=== PATIENT | female | born 1945 | race Caucasian/White ===

== ENCOUNTER 2022-07-07 09:49 | Outpatient (REF) | payer MEDICARE, MEDICAID, SELFPAY | END 2022-07-07 09:50 | disposition home or self-care (01) | LOC: HO.SH 09:49 | PROVIDERS: Visit Provider Internal Medicine | DX: Z01.118 Encounter for examination of ears and hearing with other abnormal findings (principal); H90.A32 Mixed conductive and sensorineural hearing loss, unilateral, left ear with restricted hearing on the contralateral side | CPT/HCPCS: 92557; 92567 ==

== ENCOUNTER 2022-09-06 00:13 | Emergency (ER) | payer MEDICARE, MEDICAID, SELFPAY ==
--- NOTE | ~2022-09-06 | CT_ITS ---
EXAMINATION: CT ABDOMEN AND PELVIS WITHOUT CONTRAST CLINICAL INFORMATION: Nonspecific abdominal pain and generalized weakness. COMPARISON: None TECHNIQUE: Multidetector volumetric imaging was performed from the superior aspect of the liver through the pubic symphysis. Sagittal and coronal reformatted images were obtained on the technologist's workstation. This CT examination was performed using dose optimization techniques as appropriate, variously including the following: *Automated exposure control *Adjustment of mA and/or kV according to patient size (this includes techniques or standardized protocols for targeted exams where dose is matched to indication/reason for exam; i.e. extremities or head) *Use of iterative reconstruction technique DLP: 1346 mGy-cm FINDINGS: LUNG BASES: Partial visualization is made of left base pleural thickening and pleural calcifications. Partial visualization is made of at least mild coronary artery calcific atherosclerosis. LIVER, GALLBLADDER, AND BILIARY TREE: Diffuse low density of the liver is present and is suspicious for diffuse hepatic steatosis. Cholecystectomy clips are noted. PANCREAS: Unremarkable. SPLEEN: Unremarkable. ADRENAL GLANDS: Unremarkable. KIDNEYS AND URETERS: A 3.5 cm diameter low density (-15 Hounsfield units) benign-appearing simple cyst is noted in association with the inferior pole of the left kidney and requires no additional imaging follow-up. No urolithiasis. No hydronephrosis. No perinephric inflammatory changes. BLADDER: Partially decompressed. GASTROINTESTINAL TRACT: Moderate quantity of stool within the descending colon. No intestinal dilatation or mural thickening. The appendix is not visualized. Normal appearance of the terminal ileum. No pericecal inflammatory changes. No free intraperitoneal fluid or gas collections. No inflammatory changes of the sigmoid mesentery or small bowel mesentery. Normal appearance of the stomach. ABDOMINAL WALL: No significant hernia is appreciated. LYMPH NODES: Normal. VASCULAR: Moderate diffuse calcific atherosclerosis. PELVIC VISCERA: Uterus is not visualized. No adnexal lesions. OSSEOUS STRUCTURES: Advanced multilevel chronic spondylosis of the lumbar spine. No vertebral body compression deformities. Partial visualization of convex rightward thoracolumbar scoliosis. CT/CT abdomen pelvis wo IV con IMPRESSION: Unenhanced CT of the abdomen pelvis: *No acute abnormalities identified. *Partial visualization of chronic left pleural scarring and calcifications. Findings may represent the sequela of remote trauma or infection. *Moderate quantity of stool within the descending colon. No evidence of obstruction or obstipation. *Diffuse hepatic steatosis. *Status post cholecystectomy. *The appendix is not visualized. No pericecal inflammatory changes. *No urolithiasis. No hydronephrosis. *Advanced multilevel chronic spondylosis of the lumbar spine.
--- NOTE | ~2022-09-06 | XR_ITS ---
EXAMINATION: XR CHEST CLINICAL INFORMATION: Weakness. COMPARISON: Chest radiograph 06/23/2016. TECHNIQUE: Frontal view of the chest was obtained. FINDINGS: Normal appearance of the cardiomediastinal structures. Mild blunting of left costophrenic sulcus. No pneumothoraces. No focal pulmonary consolidation identified. Partially visualized prominent arthropathic changes of the left shoulder. XR/XR chest 1V IMPRESSION: *Blunting of left costophrenic sulcus suspicious for a small left pleural effusion and/or pleural thickening. *No focal pulmonary consolidation.
[2022-09-06 00:16] VITALS: BP 121/51; PULSE 96; O2SAT 94
--- NOTE | 2022-09-06 00:39 | ECG_ITS ---
Test Reason : weakness Blood Pressure : / mmHG Vent. Rate : 087 BPM Atrial Rate : 087 BPM P-R Int : 152 ms QRS Dur : 102 ms QT Int : 400 ms P-R-T Axes : 060 050 066 degrees QTc Int : 481 ms Normal sinus rhythm Biatrial enlargement Incomplete right bundle branch block Abnormal ECG When compared with ECG of 23-JUN-2016 16:46, No significant change was found Referred By: Brandon Bragg Electronically Signed By:KARLA BERUMEN MD
--- NOTE | 2022-09-06 00:47 | ED_ITS ---
HPI - General Adult General Chief complaint: Extremity Problem Stated complaint: Lefty side Weakness Time Seen by Provider: 09/06/22 00:33 Source: patient and EMS Mode of arrival: EMS Limitations: no limitations History of Present Illness HPI narrative: 76-year-old female came in from long term for evaluation of generalized weakness, coughing with clear sputum, subjective fever, no sick contact at the long term that the patient know off, patient also has been complaining of abdominal pain. No localized weakness or neuro deficit Related Data Previous Rx's Medication Instructions Recorded oseltamivir 75 mg capsule (Tamiflu) 75 mg PO BID 5 days #10 caps 09/06/22 Allergies Allergy/AdvReac Type Severity Reaction Status Date / Time azithromycin [AZITHROMYCIN] Allergy Unknown ITCHY Unverified 06/18/20 14:37 codeine [CODEINE] AdvReac Unknown NAUSEA Unverified 06/18/20 14:37 codeine Allergy Unknown facial Uncoded 02/23/17 00:00 flushing/vomiting Review of Systems Review of Systems: All other systems are reviewed and are negative Constitutional: Reports as per HPI and Reports no additional constitutional complaints Eyes: Reports as per HPI and Reports no additional eye complaints Reports system reviewed and no additional complaints, except as documented Cardiovascular: Reports as per HPI and Reports no additional cardiovascular complaints Respiratory: Reports as per HPI and Reports no additional respiratory complaints Gastrointestinal: Reports as per HPI and Reports no additional gastrointestinal complaints Genitourinary: Reports no additional female genitourinary complaints Musculoskeletal: Reports no additional musculoskeletal complaints Skin/Breast: Reports system reviewed and no additional complaints, except as docu Psychiatric: Reports no additional psychiatric complaints Endocrine: Reports no additional endocrine complaints Hematologic/Lymphatic: Reports no additional hematologic/lymphatic complaints Allergic/Immunologic: Reports no additional allergic/immunologic complaints Reports system reviewed and no additional complaints, except as documented and Reports Abnormal speech present [facility] Social History Social History Alcohol intake: never Smoked in Last 30 Days: No Use of substances other than those prescribed or required for medical reasons: No Advance Directives: No Advance Directives Information Provided: No Physical Exam ED Vital Signs: Vital Signs - 24 hr 09/06/22 01:46 Temperature 97.6 F Pulse Rate 84 Respiratory Rate 20 Blood Pressure 134/57 L Pulse Oximetry 92 Oxygen Delivery Method Room Air BMI result Body Mass Index 67.3 Vital signs have been reviewed as appeared to be correct. Blood pressure normal. Heart rate normal. Respiration rate normal. Temperature normal. Oxygen saturation normal. Appearance: Alert. Oriented X3. No acute distress. Head: Normal external exam. Normocephalic. Atraumatic. No Rosado signs noted. No raccoon eyes noted Eyes: PERRLA. EOMI. Conjunctiva and sclera normal. Eyelids normal. ENT: TM's Normal. Pharynx normal. Uvula midline. Moist mucous membranes. No trismus noted. No drooling noted. No muffled voice noted. Neck: Normal inspection. Neck supple. FROM. No adenopathy. Thyroid Normal. No meningeal signs. No neck mass noted. CVS: Normal heart rate and rhythm. Heart sound normal. No murmurs noted. Pulses normal throughout. Respiratory: No respiratory distress. Painless inspiration. Breath sounds normal. No wheezes/rales/rhonchi noted. Chest nontender. No accessory muscle usage noted or decreased air movement noted. Abdomen: Obese, soft, mild diffuse tenderness, no rebound tenderness, no guarding.. Bowel sounds normal in all 4 quadrants. No distention noted. No organomegaly noted. No visible injury noted. Back: No CVA tenderness. Full range of motion noted. Skin: Skin warm and dry. Normal skin color. Normal skin turgor. No rashes/lesions/lacerations noted. Extremities: No lower extremity edema. Extremities exhibit normal range of motion. Extremities nontender. Neuro: Oriented X 3. Cranial nerve exam: II-XII are grossly intact No motor deficit. No sensory deficit. Reflexes normal. Course Course Course Narrative: 76-year-old female presented with symptoms of generalized weakness patient tested positive for flu will start the patient on Tamiflu. Abdominal pain with negative CT abdomen and pelvis. Otherwise unremarkable labs. Medical Decision Making Medical Decision Making Differential Diagnoses: Differential diagnosis Differential Diagnosis: The differential diagnosis associated with the patient?s presentation includes: Influenza/abdominal pain/diverticulitis/UTI/generalized weakness due to on specified reason. Discharge Plan Discharge Clinical Impression: Influenza A Patient Disposition: Home, Self-Care Instructions: Influenza (ED) Prescriptions: New oseltamivir [Tamiflu] 75 mg capsule 75 mg PO BID 5 Days Qty: 10 0RF Referrals: Physician,Unknown J [Primary Care Provider] -
[2022-09-06 01:00] VITALS: BMI 67.3
--- NOTE | 2022-09-06 01:12 | PC.NURSE ---
Patient is alert and oriented. Patient c/o generalized weakness. Patient has L sided weakness due to CVA.
--- NOTE | 2022-09-06 01:30 | PC.NURSE ---
Obtained IV access R forearm 22g.
[2022-09-06 01:31] LABS: MANUAL DIFF FLAG NO
[2022-09-06 01:46] VITALS: BP 134/57; PULSE 84; RESP 20; TEMP 36.4; O2SAT 92
[2022-09-06 01:46] LABS: Basophils Percent Auto 0.3 % (0-2); Eosinophils Absolute Auto 0.1 X10*3/uL (0.0-0.4); Eosinophils Percent Auto 1.1 % (0-4); Hematocrit 43.9 % (37.0-47.0); Imm Gran Abs Auto 0.03 X10*3/uL (0.00-0.03); Imm Gran Pct Auto 0.5 % (0.0-0.4); Lymphocytes Absolute Auto 0.9 X10*3/uL (1.2-4.9); Lymphocytes Percent Auto 13.1 % (20-40); Mean Corpuscular HGB Conc 31.9 g/dl (31.0-35.0); Mean Corpuscular Hemoglobin 27.5 pg (27.0-33.0); Mean Corpuscular Volume 86.2 fL (80.0-98.0); Mean Platelet Volume 10.6 fL (9.4-12.3); Monocytes Absolute Auto 1.2 X10*3/uL (0.1-1.2); Monocytes Percent Auto 17.4 % (2-11); Neutrophils Absolute Auto 4.5 x10*3/uL (2.0-8.3); Neutrophils Percent Auto 67.6 % (45-73); Platelet Count 223 X10*3/uL (160-400); Red Blood Count 5.09 X10*6/uL (4.20-5.50); Red Cell Distribution Width 14.5 % (11.0-16.0); White Blood Count 6.7 X10*3/uL (4.8-10.8)
[2022-09-06 01:52] LABS: Alanine Aminotransferase 43 U/L (0-31); Albumin Level 3.9 g/dL (3.5-5.0); Alkaline Phosphatase 96 U/L (39-117); Anion Gap 17 (12-20); Aspartate Amino Transferase 53 U/L (5-31); Bilirubin Direct < 0.2 mg/dL (0.0-0.5); Blood Urea Nitrogen 26 mg/dL (9-16); Calcium 8.8 mg/dL (8.4-10.2); Carbon Dioxide 22 mmol/L (22-29); Chloride 102 mmol/L (96-108); Creatinine Clr Calc Pharmacy 46.6; Estimated Glomerular Filt Rate 31; Glucose Random 184 mg/dL (60-115); Lipase 19 U/L (8-78); Potassium 4.1 mmol/L (3.3-5.1); Sodium 137 mmol/L (135-145); Total Protein 6.7 g/dL (6.5-8.0)
[2022-09-06 01:56] LABS: B Type Natriuretic Peptide 12 pg/mL (<100)
[2022-09-06 01:57] LABS: Troponin-I High Sensitivity 5.2 ng/L (<3.5-17.0)
[2022-09-06 01:59] LABS: Appearance Urine Clear; Color Urine Yellow; Glucose Urine UA Negative (Negative); Leukocyte Esterase Urine Negative (Negative); Nitrite Urine Negative (Negative); PH 5.5 (5.0-9.0); Urine Blood Negative (Negative); Urine Ketones Trace mg/dL (Negative); Urine Protein Negative (Neg-Trace)
[2022-09-06 02:09] LABS: Bilirubin Total 0.3 mg/dL (0.0-1.0)
[2022-09-06 02:23] LABS: Influenza A PCR POSITIVE (Negative); Influenza B PCR NEGATIVE (Negative); Resp Syncy Virus RNA Qual PCR NEGATIVE (Negative); SARS COV2 PCR INHOUSE NEGATIVE (Negative)
--- NOTE | 2022-09-06 03:00 | PC.NURSE ---
Patient straight cathed. Patient tolerated procedure well. 200 mL output with straight cath.
[2022-09-06] MEDS: Oseltamivir Phosphate 75 MG CAPSULE PO (03:32)
--- NOTE | 2022-09-06 03:32 | PC.NURSE ---
Administered tamiflu per NOV.
--- NOTE | 2022-09-06 03:36 | PC.NURSE ---
Applied purewick. Patient is not able to ambulate to the restroom nor use a commode safely and independently.
--- NOTE | 2022-09-06 04:00 | PC.NURSE ---
Patient is sleeping. No apparent distress.
[2022-09-06 06:13] VITALS: BP 198/90; PULSE 88; RESP 18; TEMP 36.4; O2SAT 95
--- NOTE | 2022-09-06 06:34 | PC.NURSE ---
Called Aga Wilson, coordinator from [facility]. Informed her that patient is ready for discharge, updated preferred pharmacy, and [facility] stated that an ambulance would have to transport patient back to [facility]. She also asked to be informed as to the ETA once ambulance arrives to transport patient back to [facility]. (Aga Wilson [phone])
--- NOTE | 2022-09-06 07:19 | PC.NURSE ---
ambulance transfer being set up
[2022-09-06 08:05] VITALS: BP 152/77; PULSE 92; RESP 20; O2SAT 94
[2022-09-06 10:05] VITALS: BP 156/72; PULSE 94; RESP 16; TEMP 36.9; O2SAT 92
== END 2022-09-06 10:02 | disposition home or self-care (01) ==
PROVIDERS: Emergency Provider Emergency Medicine
DX: J10.1 Influenza due to other identified influenza virus with other respiratory manifestations (principal); R06.02 Shortness of breath; R53.1 Weakness; R05.9 Cough, unspecified; Z20.822 Contact with and (suspected) exposure to COVID-19; Z79.899 Other long term (current) drug therapy
CPT/HCPCS: 0241U; 71045; 74176; 80048; 80076; 81003; 83690; 83880; 84484; 85025; 93005; 99284; 99285

== ENCOUNTER 2024-01-27 15:06 | Emergency (ER) | payer MEDICARE, MEDICAID, SELFPAY ==
--- NOTE | ~2024-01-27 | XR_ITS ---
EXAMINATION: XR CHEST CLINICAL INFORMATION: ?aspiration COMPARISON: Chest radiograph 09/06/2022, CT abdomen/pelvis 09/06/2022 TECHNIQUE: Frontal view of the chest was obtained. FINDINGS: The lungs are adequately expanded. Left inferolateral pleural thickening redemonstrated. No dense focal consolidation, significant perfusion, pulmonary edema or pneumothorax. Cardiomediastinal silhouette is within normal limits for technique and unchanged. No acute osseous abnormality. Severe left glenohumeral arthrosis. XR/XR chest 1V IMPRESSION: 1. No acute pulmonary disease. 2. Left inferolateral pleural thickening redemonstrated.
[2024-01-27 15:15] VITALS: BP 194/56; PULSE 80; RESP 18; TEMP 36.5; O2SAT 94; O2SAT 99; BMI 45.6
--- NOTE | 2024-01-27 17:06 | ED_ITS ---
HPI - General Adult General Chief complaint: General Medical Stated complaint: CHOKED ON MEATBALL Time Seen by Provider: 01/27/24 16:14 Source: patient, RN notes reviewed and old records reviewed Mode of arrival: EMS Limitations: no limitations History of Present Illness HPI narrative: 78-year-old female presents for evaluation of ?choked on a meatball. ? Patient reports that she was eating lunch prior to coming in. She states that she bit off a large piece of meat ball. She states it got stuck correction down Patient reports that she could not swallow and ?I kept coughing up phlegm. ? She reports that she was able to talk during this This is not the 1st time this has happened She reports having had a swallow evaluation but not an endoscopy She was able to cough out the entire meet ball per her report Currently she has no complaints or concerns Related Data Previous Rx's ?Medication ?Instructions ?Recorded oseltamivir 75 mg capsule (Tamiflu) 75 mg PO BID 5 days #10 caps 09/06/22 amoxicillin 875 mg-potassium 1 tab PO Q12H #10 tabs 01/27/24 clavulanate 125 mg tablet Allergies Allergy/AdvReac Type Severity Reaction Status Date / Time azithromycin [AZITHROMYCIN] Allergy Unknown ITCHY Verified 01/27/24 15:17 codeine [CODEINE] AdvReac Unknown NAUSEA Verified 01/27/24 15:17 codeine Allergy Unknown facial Uncoded 02/23/17 00:00 flushing/vomiting Review of Systems Constitutional: Constitutional: Denies body ache(s), Denies chills and Denies fever(s) ENT: Denies sore throat Cardiovascular: Cardiovascular: Denies chest pain and Denies dyspnea Respiratory: Respiratory: Reports cough and Denies dyspnea Gastrointestinal: Gastrointestinal: Denies abdominal pain, Denies nausea and Denies vomiting Musculoskeletal: Musculoskeletal: Denies back pain Integumentary/Breasts: Skin/Breast: Denies rash PMFSH Social History Social History Alcohol intake: never Physical Exam ED Vital Signs: Vital Signs - 24 hr 01/27/24 15:15 Temperature 97.7 F Pulse Rate 80 Respiratory Rate 18 Blood Pressure 194/56 H Pulse Oximetry 94 Oxygen Delivery Method Room Air BMI result Body Mass Index 45.6 Const General: healthy appearing, comfortable, no acute distress, alert and awake Nutritional Appearance: well nourished Orientation/consciousness: patient oriented x3 HENWI Head: Yes normocephalic and Yes atraumatic Throat: Yes posterior oropharynx normal Eyes Eyelids: Yes eyelids normal Conjunctivae: conjunctivae normal Sclerae: sclerae normal Corneas: corneas normal Pupils: Equal, round and reactive pupils present EOM: EOMs intact bilaterally Neck Neck: Yes full ROM Resp Effort & Inspection: normal respiratory effort, able to speak in complete sentences, no audible wheezes and not labored Auscultation: clear to auscultation bilaterally Cardio Rate: regular rate Rhythm: regular rhythm GI Inspection: No distended Palpation (GI): Soft to palpation, not firm, nontender, no guarding and not rigid Skin General skin exam: no rashes or lesions noted and elasticity normal Neuro Other: Left-sided hemiparesis General: patient oriented x3 Cranial nerves: Yes CN's II-XII intact bilaterally, Yes Equal, round and reactive pupils present and Yes Bilaterally intact EOM present Cognition (Neuro): normal cognition Medical Decision Making Medical Decision Making MDM Narrative: Patient is currently asymptomatic with stable vital signs. She has not in respiratory distress, she has no complaints of chest pain, cough, shortness of breath. It sounds as if she was able to cough the foreign body up. Based on her history and that she is able to speak during this episode was likely lodged in her esophagus rather than her trachea. However given her age and comorbidities we will cover with 5 days of Augmentin to prevent aspiration pneumonia. She will be referred to GI Differential Diagnosis Differential Diagnoses: The differential diagnosis associated with the presentation includes Choking episode Esophageal foreign body Aspiration pneumonia Upper respiratory infection Discharge Plan Discharge Clinical Impression: Choking episode Patient Disposition: Home, Self-Care Instructions: Esophageal Foreign Body (ED) Additional Instructions: Based on your history, it sounds as if there was something stuck in your esophagus rather than your trachea. I recommend that you stick to liquids and soft foods Follow-up with GI, Dr. Alarcon at the number provided You would likely benefit from an upper endoscopy Take Augmentin twice daily for 5 days to prevent aspiration pneumonia Follow-up with your primary doctor return for new or worsening symptoms Prescriptions: New amoxicillin-pot clavulanate 875-125 mg tablet 1 tab PO Q12H Qty: 10 0RF No Action oseltamivir [Tamiflu] 75 mg capsule 75 mg PO BID 5 Days Qty: 10 0RF Referrals: Jorge Alarcon MD [Physician] - (frequent food stuck in esophagus) Print Language: Bhutanese
[2024-01-27] MEDS: Amoxicillin/Potassium Clav 875 MG TABLET PO (17:17)
[2024-01-27 17:46] VITALS: BP 183/64; PULSE 76; RESP 16; TEMP 37.2; O2SAT 99
== END 2024-01-27 17:47 | disposition home or self-care (01) ==
PROVIDERS: Emergency Provider Internal Medicine
DX: T17.928A Food in respiratory tract, part unspecified causing other injury, initial encounter (principal); W44.F3XA Food entering into or through a natural orifice, initial encounter; Y93.9 Activity, unspecified; Y92.9 Unspecified place or not applicable; Y99.9 Unspecified external cause status
CPT/HCPCS: 71045; 99283; 99284

== ENCOUNTER 2024-04-01 13:00 | Outpatient (REF) | payer MEDICARE, MEDICAID, SELFPAY | END 2024-04-01 13:01 | disposition home or self-care (01) | LOC: HO.SH 13:00 | PROVIDERS: Visit Provider Internal Medicine | DX: Z01.118 Encounter for examination of ears and hearing with other abnormal findings (principal); H90.A21 Sensorineural hearing loss, unilateral, right ear, with restricted hearing on the contralateral side; H90.A32 Mixed conductive and sensorineural hearing loss, unilateral, left ear with restricted hearing on the contralateral side | CPT/HCPCS: 92552; 92556; 92567 ==

== ENCOUNTER 2024-05-25 22:46 | Emergency (ER) | payer MEDICARE, MEDICAID, SELFPAY ==
--- NOTE | ~2024-05-25 | CT_ITS ---
EXAMINATION: CT ABDOMEN AND PELVIS WITH CONTRAST CLINICAL INFORMATION: Left lower quadrant tenderness, nausea/vomiting, rule out diverticulitis COMPARISON: 09/06/2022 TECHNIQUE: Multidetector volumetric imaging was performed of the abdomen and pelvis following administration of 100 mL Omnipaque 300 intravenous contrast. Sagittal and coronal reformatted images were obtained on the technologist's workstation. This CT examination was performed using dose optimization techniques as appropriate, variously including the following: *Automated exposure control *Adjustment of mA and/or kV according to patient size (this includes techniques or standardized protocols for targeted exams where dose is matched to indication/reason for exam; i.e. extremities or head) *Use of iterative reconstruction technique DLP: 1272 mGy-cm FINDINGS: LUNG BASES: Redemonstration of left base pleural thickening and calcifications. ABDOMINAL AND PELVIC WALL: Unremarkable. LIVER AND BILIARY TREE: Hepatic steatosis. GALLBLADDER: Status post cholecystectomy. PANCREAS: Unremarkable. SPLEEN: Unremarkable. ADRENAL GLANDS: Unremarkable. KIDNEYS AND URETERS: Benign-appearing left renal cysts. No hydronephrosis or nephrolithiasis. GASTROINTESTINAL TRACT: Scattered colonic diverticulosis, no findings diverticulitis large-volume stool is seen within the large colon. Appendix is not visualized, however no inflammatory changes are seen in the right lower quadrant.. VASCULAR: Dense aortic atherosclerotic calcifications, no aneurysmal dilation. LYMPH NODES/PERITONEUM: No lymphadenopathy. FREE FLUID: None. BLADDER: Unremarkable. PELVIC VISCERA: Unremarkable. OSSEOUS STRUCTURES: Severe degenerative changes of the spine and bilateral hip joints. CT/CT abdomen pelvis w IV con IMPRESSION: * No acute intra-abdominal abnormality. * Scattered colonic diverticulosis, no findings of diverticulitis. * Large-volume stool is seen within the large colon. Electronically signed by: Khadra Guerrero MD 05/26/2024 01:05 AM EDT
[2024-05-25 22:54] VITALS: BP 120/80; BP 206/66; PULSE 70; PULSE 93; RESP 20; TEMP 36.8; O2SAT 94; BMI 49.6
--- NOTE | 2024-05-25 23:00 | PC.NURSE ---
pt states she took her nighttime medication, before she left the correction, and did not throw it up, she threw up, before the nighttime med pass
--- NOTE | 2024-05-25 23:44 | ED_ITS ---
HPI - Abdominal Pain General Chief Complaint: Abdominal Pain Stated Complaint: abd pain n/v/d Time Seen by Provider: 05/25/24 23:43 Source: patient Mode of arrival: EMS Limitations: no limitations History of Present Illness ED Provider: Dr. Quintin Perez HPI narrative: 78-year-old female with a history of hypertension, diabetes mellitus, hysterectomy who brought to the emergency department by ambulance from her [facility] for evaluation of nausea, vomiting abdominal pain. The patient states that her symptoms started at around noon time after she had a hot dog. She developed abdominal pain and points to her epigastric area when asked to localize the pain. She states the pain is been constant in his .02/08. The patient has had nausea and vomiting and states she was thrown up proximally 3 times. She denied fever, chills, chest pain, shortness of breath. She denied frequency, urgency or dysuria. She states this is her 1st episode of this type of pain. Related Data Previous Rx's ?Medication ?Instructions ?Recorded oseltamivir 75 mg capsule (Tamiflu) 75 mg PO BID 5 days #10 caps 09/06/22 amoxicillin 875 mg-potassium 1 tab PO Q12H #10 tabs 01/27/24 clavulanate 125 mg tablet ondansetron 4 mg disintegrating 4 mg PO Q6-8H PRN nausea and 05/26/24 tablet vomiting #14 tabs Allergies Allergy/AdvReac Type Severity Reaction Status Date / Time azithromycin [AZITHROMYCIN] Allergy Unknown ITCHY Verified 05/25/24 23:00 codeine [CODEINE] AdvReac Unknown NAUSEA Verified 05/25/24 23:00 codeine Allergy Unknown facial Uncoded 05/25/24 23:00 flushing/vomiting Review of Systems Review of Systems Yes all other systems are reviewed and are negative PMFSH Social History Social History Alcohol intake: never Smoked in Last 30 Days: Yes Use of substances other than those prescribed or required for medical reasons: No Advance Directives: Yes Advance Directives Information Provided: No Advance Directives on File: No Physical Exam ED Vital Signs: Vital Signs - 24 hr 05/25/24 22:54 Temperature 98.2 F Pulse Rate 93 Respiratory Rate 20 Blood Pressure 206/66 H Pulse Oximetry 94 Oxygen Delivery Method Room Air BMI result Body Mass Index 49.6 Vital signs revealed an elevated blood pressure of 206/66 Exam: General: Awake, alert in no distress, weight 126 kg, elevated BMI 49.6 kg per m2 Head: Normocephalic, atraumatic EENT: PERRL, Lids normal, sclera normal, conjunctiva normal, nose normal , ears normal, throat without erythema or exudates Neck: Supple, no adenopathy Lung: breath sounds symmetric, no wheezing, rales or rhonchi Chest: symmetric movement, nontender Heart: regular rate and rhythm, normal S1, S2 no murmurs or rubs Abdomen: Obese, distended, diminished bowel sounds, moderate epigastric tenderness, moderate to severe left lower quadrant tenderness Back: no vertebral tenderness, no CVAT Extremities: 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 Patient had associated nausea and with a at least 3 episodes of vomiting. Patient's pain was 9/10 at its worst. Physical examination revealed an obese abdomen with epigastric, left upper and left lower quadrant tenderness. Differential diagnosis: ?Includes but is not limited to pancreatitis, gastritis, GERD, diverticulitis, viral syndrome, electrolyte abnormalities, anemia Following evaluation was ordered: CBC, CMP, lipase, magnesium, urinalysis, COVID-19, influenza, RSV, CT scan of the abdomen pelvis with IV contrast Patient was initially treated with the following: Toradol 15 mg IV, Zofran 4 mg IV, and LR 500 cc IV Course: 02:25 My interpretation patient's laboratory evaluation is as follows: WBC elevated 16,800 with a left shift 82 neutrophils. H&H was normal 14.4 and 44.4. Glucose elevated CMP was otherwise unremarkable. Lipase normal at 16. COVID-19, RSV and influenza were negative. CT scan of the abdomen pelvis did not reveal a clear cause for the patient's pain. Patient most likely has a viral illness. Patient will be discharged back to her nursing facility with a prescription for Zofran 4 mg ODT every 6-8 hours as needed for nausea and vomiting. Admission/Observation Consideration of admission/observation: Escalation of care including admission/observation considered Lab Data MDM Lab Attestation statement: I reviewed the patient's lab results. 05/25/24 Unknown 05/25/24 Unknown Labs: Lab Results 05/25/24 Range/Units Unknown WBC 16.8 H (4.8-10.8) X10*3/uL RBC 5.11 (4.20-5.50) X10*6/uL Hgb 14.4 (12.0-16.0) g/dl Hct 44.4 (37.0-47.0) % MCV 86.9 (80.0-98.0) fL MCH 28.2 (27.0-33.0) pg MCHC 32.4 (31.0-35.0) g/dl RDW 14.1 (11.0-16.0) % Plt Count 257 (160-400) X10*3/uL MPV 11.1 (9.4-12.3) fL Immature Gran % (Auto) 0.5 H (0.0-0.4) % Neut % (Auto) 82.1 H (45-73) % Lymph % (Auto) 7.6 L (20-40) % [place] % (Auto) 8.2 (2-11) % Eos % (Auto) 1.4 (0-4) % Baso % (Auto) 0.2 (0-2) % Lymph # (Auto) 1.3 (1.2-4.9) X10*3/uL [place] # (Auto) 1.4 H (0.1-1.2) X10*3/uL Eos # (Auto) 0.2 (0.0-0.4) X10*3/uL Baso # (Auto) 0.0 (0.0-0.2) X10*3/uL Abs Immat Gran (auto) 0.09 H (0.00-0.03) X10*3/uL Absolute Neuts (auto) 13.8 H (2.0-8.3) x10*3/uL Absolute Nucleated RBC 0.000 (0.0-0.012) X10*3/uL Nucleated RBC % (auto) 0.0 (0.0-0.2) /100WBC Sodium 142 (135-145) mmol/L Potassium 4.4 (3.3-5.1) mmol/L Chloride 107 (96-108) mmol/L Carbon Dioxide 23 (22-29) mmol/L Anion Gap 16 (12-20) BUN 17 H (9-16) mg/dL Creatinine 0.81 (0.5-1.4) mg/dL Estim Creat Clear Calc 73.1 Estimated GFR > 60 Random Glucose 140 H (60-115) mg/dL Calcium 9.9 D (8.4-10.2) mg/dL Magnesium 2.0 (1.6-2.6) mg/dL Total Bilirubin 0.2 (0.0-1.0) mg/dL AST 20 (5-31) U/L ALT 23 (0-31) U/L Alkaline Phosphatase 85 (39-117) U/L Total Protein 7.4 (6.5-8.0) g/dL Albumin 4.1 (3.5-5.0) g/dL Lipase 16 (8-78) U/L Influenza Type A (PCR) NEGATIVE (Negative) Influenza Type B (PCR) NEGATIVE (Negative) RSV RNA Qual (PCR) NEGATIVE (Negative) SARS-CoV-2 RNA (RT-PCR) NEGATIVE (Negative) Radiology Impression Discussion of test interpretation with radiology: I have reviewed the radiologist's reading. Radiologist Impression: CT abdomen pelvis w IV con IMPRESSION: * No acute intra-abdominal abnormality. * Scattered colonic diverticulosis, no findings of diverticulitis. * Large-volume stool is seen within the large colon. Dictated By: Khadra Guerrero MD Prescription Management I considered prescription management with: Other (Antiemetics-Zofran ODT) Chronic Conditions Patient?s care impacted by: Diabetes and Hypertension Medications Administered Discontinued Medications Generic Name Dose Route Start Last Admin Trade Name Freq PRN Reason Stop Dose Admin Ketorolac Tromethamine 15 mg 05/25/24 23:51 05/26/24 00:08 Ketorolac Tromethamine 15 Mg/Ml Vial IVPUSH 05/25/24 23:52 15 mg ONCE STA Administration Ondansetron HCl 4 mg 05/25/24 23:51 05/26/24 00:08 Ondansetron Hcl 4 Mg/2 Ml Vial IVPUSH 05/25/24 23:52 4 mg ONCE ONE Administration 78-year-old female with a history of hypertension, diabetes mellitus, hysterectomy who brought [facility] emergency department from her [facility] for evaluation of nausea, vomiting abdominal pain which began at around noon time after she ate a hot dog. Patient states the pain has been constant, 9/10, associated with nausea and vomiting, 1st episode of this type of pain. Vital signs revealed an elevated blood pressure. Exam revealed obese, distended abdomen with epigastric and left lower quadrant tenderness Differential diagnosis: ?Includes but is not limited to complete bowel obstruction, partial bowel obstruction, pancreatitis, appendicitis, diverticulitis, viral syndrome, anemia, electrolyte abnormalities Following evaluation was ordered: CBC, CMP, BNP, lipase, magnesium, COVID-19, influenza, RSV, urinalysis, CT scan of the abdomen pelvis with IV contrast Patient was initially treated with the following: IV insert, Toradol 15 mg IV, Zofran 4 mg IV Course: 23:15 BUN and creatinine elevated 26 and 1.6. Glucose elevated 184. AST and ALT elevated 53 and 43. BNP was normal. Lipase was normal. My interpretation patient's laboratory evaluation is as follows: WBC normal 6700. H&H was normal 14 and 43.9. Discharge Plan Discharge Clinical Impression: Viral syndrome Vomiting Qualifiers: Vomiting type: unspecified Nausea presence: with nausea Qualified Code(s): R 11.2 - Nausea with vomiting, unspecified Patient Disposition: Home, Self-Care Instructions: Acute Nausea and Vomiting (ED), Viral Syndrome (ED) Additional Instructions: Your COVID-19, influenza and RSV were negative. Your white blood cell count was elevated otherwise your blood work was unremarkable. The CT scan of your abdomen pelvis did not reveal any significant abnormalities to explain your abdominal pain, nausea and vomiting Your symptoms and presentation are consistent with a viral infection. Take Tylenol (acetaminophen) 500 mg pills, 2 pills every 6 hours as needed for pain or fever. Take Zofran ODT 4 mg pills, 1 pill dissolved in your mouth every 8 hours as needed for nausea and vomiting. Follow-up with your doctor in 2 days. Please return to the emergency department if your symptoms get worse or if you develop any symptoms that are concerning to you. Prescriptions: New ondansetron 4 mg tablet,disintegrating 4 mg PO Q6-8H PRN (Reason: nausea and vomiting) Qty: 14 0RF No Action oseltamivir [Tamiflu] 75 mg capsule 75 mg PO BID 5 Days Qty: 10 0RF amoxicillin-pot clavulanate 875-125 mg tablet 1 tab PO Q12H Qty: 10 0RF Print Language: Filipino
[2024-05-26 00:06] LABS: MANUAL DIFF FLAG NO
[2024-05-26] MEDS: Ketorolac Tromethamine 15 MG/ML VIAL IVPUSH (00:08)
[2024-05-26] MEDS: ondansetron HCL 4 MG/2 ML VIAL IVPUSH (00:08)
[2024-05-26 00:11] LABS: Basophils Percent Auto 0.2 % (0-2); Eosinophils Absolute Auto 0.2 X10*3/uL (0.0-0.4); Eosinophils Percent Auto 1.4 % (0-4); Hematocrit 44.4 % (37.0-47.0); Hemoglobin 14.4 g/dl (12.0-16.0); Imm Gran Abs Auto 0.09 X10*3/uL (0.00-0.03); Imm Gran Pct Auto 0.5 % (0.0-0.4); Lymphocytes Absolute Auto 1.3 X10*3/uL (1.2-4.9); Lymphocytes Percent Auto 7.6 % (20-40); Mean Corpuscular HGB Conc 32.4 g/dl (31.0-35.0); Mean Corpuscular Hemoglobin 28.2 pg (27.0-33.0); Mean Corpuscular Volume 86.9 fL (80.0-98.0); Mean Platelet Volume 11.1 fL (9.4-12.3); Monocytes Absolute Auto 1.4 X10*3/uL (0.1-1.2); Monocytes Percent Auto 8.2 % (2-11); Neutrophils Absolute Auto 13.8 x10*3/uL (2.0-8.3); Neutrophils Percent Auto 82.1 % (45-73); Platelet Count 257 X10*3/uL (160-400); Red Blood Count 5.11 X10*6/uL (4.20-5.50); Red Cell Distribution Width 14.1 % (11.0-16.0); White Blood Count 16.8 X10*3/uL (4.8-10.8)
--- NOTE | 2024-05-26 00:18 | PC.NURSE ---
called pt's daughter Destiny Yao @[phone] to inform her that her mother was in the ER
[2024-05-26 00:24] LABS: Alanine Aminotransferase 23 U/L (0-31); Albumin Level 4.1 g/dL (3.5-5.0); Alkaline Phosphatase 85 U/L (39-117); Anion Gap 16 (12-20); Aspartate Amino Transferase 20 U/L (5-31); Bilirubin Total 0.2 mg/dL (0.0-1.0); Blood Urea Nitrogen 17 mg/dL (9-16); Calcium 9.9 mg/dL (8.4-10.2); Carbon Dioxide 23 mmol/L (22-29); Chloride 107 mmol/L (96-108); Creatinine Clr Calc Pharmacy 73.1; Estimated Glomerular Filt Rate > 60; Glucose Random 140 mg/dL (60-115); Lipase 16 U/L (8-78); Potassium 4.4 mmol/L (3.3-5.1); Sodium 142 mmol/L (135-145); Total Protein 7.4 g/dL (6.5-8.0)
[2024-05-26 00:47] LABS: Influenza A PCR NEGATIVE (Negative); Influenza B PCR NEGATIVE (Negative); Resp Syncy Virus RNA Qual PCR NEGATIVE (Negative); SARS COV2 PCR INHOUSE NEGATIVE (Negative)
[2024-05-26] MEDS: Lactated Ringers 500 ML 999 ML IV (02:40)
--- NOTE | 2024-05-26 03:23 | PC.NURSE ---
pt from [facility], called the number to tell them, she was coming back, no one answer, Pt states, no one will be there, until 9am, Will try later to get somone on the phone
--- NOTE | 2024-05-26 06:42 | PC.NURSE ---
called pt's resident and someone answered and stated they were there, to send her back.
--- NOTE | 2024-05-26 07:01 | PC.NURSE ---
report given to Brittany DUARTE
--- NOTE | 2024-05-26 07:21 | PC.NURSE ---
Resumed care of pt at 0700. Pt resting in bed quietly, respirations even and unlabored, no increased wob/sob. Pt updated on plan for ambulance back to residential- ETA 10am. Call bush within reach, all needs met at this time.
[2024-05-26 09:43] VITALS: BP 148/82; PULSE 86; RESP 18; TEMP 36.8; O2SAT 97
[2024-05-26 09:44] VITALS: BP 148/82; PULSE 86; RESP 18; TEMP 36.8; O2SAT 97
== END 2024-05-26 09:45 | disposition home or self-care (01) ==
PROVIDERS: Physician Assistant Medical; Emergency Provider Emergency Medicine Emergency Medical Services
DX: B34.9 Viral infection, unspecified (principal); R10.13 Epigastric pain; R11.2 Nausea with vomiting, unspecified; I10 Essential (primary) hypertension; E11.9 Type 2 diabetes mellitus without complications; Z03.818 Encounter for observation for suspected exposure to other biological agents ruled out; Z79.899 Other long term (current) drug therapy
CPT/HCPCS: 0241U; 74177; 80053; 83690; 83735; 85025; 96365; 96375; 99284; 99285; J1885; J2405; J7120

== ENCOUNTER 2024-07-22 10:57 | Inpatient (IN) | payer MEDICARE, MEDICAID, SELFPAY ==
[2024-07-22] VITALS (13 sets, daily range): BP systolic 123–201; BP diastolic 44–103; PULSE 86–114; RESP 19–24; TEMP 36.6–38.8; O2SAT 90–99; BMI 49.0
--- NOTE | ~2024-07-22 | CT_ITS ---
EXAMINATION: CT ANGIOGRAM CHEST CLINICAL INFORMATION: Cough, right-sided wedge-shaped infiltrate. COMPARISON: Chest x-ray performed earlier same day. Additional chest x-ray January 2024. TECHNIQUE: Multiple axial images were obtained through the chest after the administration of 65 mL of Omnipaque 350 intravenous contrast. Extensive vascular post-processing including two-dimensional and three-dimensional reformatted images were created and reviewed on an independent workstation. This CT examination was performed using dose optimization techniques as appropriate, variously including the following: *Automated exposure control. *Adjustment of mA and/or kV according to patient size (this includes techniques or standardized protocols for targeted exams where dose is matched to indication/reason for exam; i.e. extremities or head). *Use of iterative reconstruction technique. DLP: 504 mGy-cm FINDINGS: Exam is partially limited by image degrading motion artifact LUNGS AND PLEURAL SPACES: There is a prominent wedge-shaped consolidation in the posterior aspect of the right upper lobe abutting the major fissure. This consolidation measures up to 4.8 cm transverse, 6.9 cm AP and 4.3 cm craniocaudal. The margins are ill-defined. Otherwise, there is some minimal scattered mosaic opacification throughout both lungs. This could reflect air-trapping or mild edema. There is posterior pleural thickening slightly greater on the left than right and appears chronic. No pleural effusions. CARDIOVASCULAR: Pulmonary Arteries and Branches: Evaluation is partially limited because of suboptimal timing of the contrast bolus. No central filling defect. No definite defect noted distally although evaluation is limited. There is arterial calcification of the dorsal aorta. Heart size within normal limits. No pericardial effusion. ESOPHAGUS: Normal. THORACIC INLET: Normal. LYMPH NODES: Normal. SOFT TISSUES/CHEST WALL: Unremarkable. OSSEOUS STRUCTURES: Multilevel spondylosis of the visualized spine with prominent ossification along the anterior longitudinal ligament and some bone resorption noted deep to the ligament in the lower dorsal spine which appears chronic. These findings are likely present although although less conspicuous on prior radiographs dating back to 2016. Degenerative changes in both shoulders involving the glenohumeral joints. UPPER ABDOMEN: Unremarkable. CT/CT angio chest PE protocol IMPRESSION: Exam is limited in evaluation for pulmonary embolism because of image-degrading motion artifact and suboptimal timing of the contrast bolus. No central embolus identified. Large wedge-shaped consolidation in the right upper lobe. The differential diagnosis includes pneumonia, wedge-shaped pulmonary infarct, or pulmonary neoplasm. Continued follow-up to ensure resolution. Spondylosis of the partially visualized spine. Fleischner guidelines were followed. Electronically signed by: Kain Uriostegui MD 07/22/2024 05:55 PM EDT RP
--- NOTE | ~2024-07-22 | XR_ITS ---
EXAMINATION: XR CHEST CLINICAL INFORMATION: Cough. Fever. Rule out pneumonia. COMPARISON: January 27, 2024. TECHNIQUE: Portable AP view of the chest was obtained. FINDINGS: The study is limited by portable technique, suboptimal inspiration, and patient body habitus. There is a right upper lobe, focal, wedge-shaped consolidation, new compared with January 27, 2024. Differential diagnosis includes, but is not limited to, pneumonia. Recommend clinical correlation. Left basilar hazy density suggesting pleural fluid, pleural thickening, atelectasis, and/or infiltrate, unchanged. No pneumothorax is seen. The cardiac silhouette appears normal in size. Severe degenerative changes of the glenohumeral joints. Mild degenerative changes of the spine. XR/XR chest 1V IMPRESSION: Findings as above. Electronically signed by: Willian Valerio MD 07/22/2024 04:22 PM EDT
--- NOTE | 2024-07-22 11:28 | PC.NURSE ---
Pt presents [facility]. Reports lethargy, malaise and cough/wheezing since this morning. Alert and oriented, breathing even and unlabored, feels warm. Reports chronic pain on left side, has deficits from previous stroke. NSR on bedside potline monitor.
--- NOTE | 2024-07-22 11:29 | MHC.EDTECH ---
Patient got in the room by EMS, got clean, purewick in place, Patient rest quietly in the bed and call bush within PT reach
[2024-07-22 11:47] LABS: Basophils Percent Auto 0.2 % (0-2); Eosinophils Percent Auto 0.2 % (0-4); Hematocrit 41.4 % (37.0-47.0); Hemoglobin 13.4 g/dl (12.0-16.0); Imm Gran Abs Auto 0.08 X10*3/uL (0.00-0.03); Imm Gran Pct Auto 0.5 % (0.0-0.4); Lymphocytes Absolute Auto 1.7 X10*3/uL (1.2-4.9); Lymphocytes Percent Auto 11.5 % (20-40); MANUAL DIFF FLAG SCAN; Mean Corpuscular HGB Conc 32.4 g/dl (31.0-35.0); Mean Corpuscular Hemoglobin 27.9 pg (27.0-33.0); Mean Corpuscular Volume 86.3 fL (80.0-98.0); Mean Platelet Volume 10.9 fL (9.4-12.3); Monocytes Absolute Auto 1.8 X10*3/uL (0.1-1.2); Monocytes Percent Auto 11.6 % (2-11); Neutrophils Absolute Auto 11.5 x10*3/uL (2.0-8.3); Platelet Count 250 X10*3/uL (160-400); SCAN SMEAR FLAG 1; White Blood Count 15.1 X10*3/uL (4.8-10.8)
--- NOTE | 2024-07-22 11:54 | ED.GENADULT ---
HPI - General Adult General Chief complaint: General Medical Stated complaint: WEAK/TIRED/CLAMMY,HOT TO TOUCH,GRP HOME,BED BOUND Time Seen by Provider: 07/22/24 11:53 Source: patient and other (jail staff members) Mode of arrival: EMS Limitations: no limitations History of Present Illness ED Provider: Dr. Quintin Perez HPI narrative: 78-year-old female with a history of stroke with left hemiplegia, diabetes mellitus, hypertension, hyperlipidemia, depression, anxiety, conversion reaction-seizures, dysphagia, mediastinal adenopathy, GERD who presents emergency department for evaluation of fever of 103 degrees F at her [facility], cough, abdominal pain and right-sided chest pain, fatigue and weakness since yesterday. Patient states that she developed a dry, nonproductive cough which is persistent. She states she has been feeling weak and fatigued since onset of her cough. She feels short of breath and is complaining of right-sided chest pain. She believes the pain is caused by the Cornelius lift strap that the [facility] uses to get her in and out of bed. She states she has had nausea but no vomiting. She was also complaining of a headache and stomach pain. She has noted dysuria but no frequency. She denied myalgias arthralgias. Patient was given Tylenol prior to coming to the emergency department for fever. She also states she took Tums and aspirin for her stomach ache and headache. The [facility] nurse did speak to the patient's ED nurse and informed us that the patient was diagnosed with a right-sided lung cancer in 02/19/2024 by PET scan. Related Data Previous Rx's ?Medication ?Instructions ?Recorded oseltamivir 75 mg capsule (Tamiflu) 75 mg PO BID 5 days #10 caps 09/06/22 amoxicillin 875 mg-potassium 1 tab PO Q12H #10 tabs 01/27/24 clavulanate 125 mg tablet ondansetron 4 mg disintegrating 4 mg PO Q6-8H PRN nausea and 05/26/24 tablet vomiting #14 tabs Allergies Allergy/AdvReac Type Severity Reaction Status Date / Time azithromycin [AZITHROMYCIN] Allergy Unknown ITCHY Verified 07/22/24 11:16 codeine [CODEINE] AdvReac Unknown NAUSEA Verified 05/25/24 23:00 codeine Allergy Unknown facial Uncoded 05/25/24 23:00 flushing/vomiting Review of Systems Review of Systems: Yes all other systems are reviewed and are negative [facility] Past Medical History [facility] Narrative: Social history: She lives in a [facility]. Medical History (Updated 07/22/24 @ 17:22 by Quintin Perez MD) Paralysis CVA (cerebral vascular accident) Social History Social History Alcohol intake: never Smoked in Last 30 Days: No Use of substances other than those prescribed or required for medical reasons: No Advance Directives: No Advance Directives Information Provided: Yes Physical Exam ED Vital Signs: Vital Signs - 24 hr 07/22/24 11:13 07/22/24 15:04 07/22/24 15:32 Temperature 98.1 F 97.8 F Pulse Rate 86 100 Respiratory Rate 20 24 H Blood Pressure 140/54 H 123/44 L Pulse Oximetry 93 92 90 L Oxygen Delivery Method Room Air Room Air Room Air Oxygen Flow Rate 07/22/24 15:33 07/22/24 16:20 07/22/24 17:32 Temperature 102 F H 99.1 F Pulse Rate Respiratory Rate Blood Pressure Pulse Oximetry 95 Oxygen Delivery Method Nasal Cannula Oxygen Flow Rate 2 07/22/24 18:33 Temperature Pulse Rate 100 Respiratory Rate 19 Blood Pressure 158/69 H Pulse Oximetry 97 Oxygen Delivery Method Nasal Cannula Oxygen Flow Rate 2 BMI result Body Mass Index 49.0 Vital signs revealed an elevated blood pressure of 140/54 otherwise unremarkable. Exam: General: Awake, alert in no distress, answers all questions appropriately. Weight was 125.6 kg with an elevated BMI of 49.1 kg per m2 Head: Normocephalic, atraumatic EENT: PERRL, Lids normal, sclera normal, conjunctiva normal, nose normal , ears normal, throat without erythema or exudates Neck: Supple, no adenopathy Lung: breath sounds symmetric, no wheezing, rales or rhonchi Chest: symmetric movement, patient has tenderness palpation of both her left and right lateral chest wall with no ecchymosis or lesions noted in these areas. Heart: regular rate and rhythm, normal S1, S2 no murmurs or rubs Abdomen: soft, non-tender, nondistended, normal bowel sounds Back: no vertebral tenderness, no CVAT Extremities: Atrophy your left upper extremity secondary to hemiplegia from stroke Neuro: Awake, alert, oriented, normal speech, cranial nerves intact, able to move her right upper and lower extremity without difficulty, hemiplegia on the left Psych: Pleasant, cooperative Medications Administered Discontinued Medications Generic Name Dose Route Start Last Admin Trade Name Obed PRN Reason Stop Dose Admin Acetaminophen 975 mg 07/22/24 16:23 07/22/24 16:35 Acetaminophen 325 Mg Tablet PO 07/22/24 16:24 975 mg ONCE ONE Administration Ceftriaxone Sodium 1 gm 07/22/24 14:48 07/22/24 16:27 Ceftriaxone Sodium 1 Gm Vial IVPUSH 07/22/24 14:49 1 gm ONCE ONE Administration Sodium Chloride 1,000 mls @ 999 mls/hr 07/22/24 14:46 07/22/24 18:00 Ns IV 07/22/24 15:46 Infused .Q1H1M STA Infusion Doxycycline Hyclate 100 mg/ 250 mls @ 166.67 mls/hr 07/22/24 14:48 07/22/24 18:00 Sodium Chloride IV 07/22/24 16:17 Infused ONCE ONE Infusion Iohexol 100 ml 07/22/24 15:47 07/22/24 15:47 Iohexol 350 Mg/Ml 100 Ml Infus..Btl IV 07/22/24 15:48 65 ml ONCE ONE Administration Medical Decision Making Medical Decision Making MDM Narrative: 78-year-old female with a history of stroke with left hemiplegia, diabetes mellitus, hypertension, hyperlipidemia, depression, anxiety, conversion reaction-seizures, dysphagia, mediastinal adenopathy, GERD, right-sided lung cancer diagnosed 02/19/2024 by PET scan who presents emergency department for evaluation of fever of 103 degrees F at her [facility] with 2 days of cough, abdominal pain, right-sided chest pain, nonproductive cough, shortness of breath, headache, dysuria fatigue and weakness since yesterday. Physical exam revealed an elevated BMI, elevated blood pressure and lateral chest wall tenderness otherwise was unremarkable. 14:48 hours Differential diagnosis: ?Includes but is not limited to pneumonia, urinary tract infection, viral infection (COVID, flu, RSV), myocardial infarction, myocardial ischemia, electrolyte abnormalities, anemia Following evaluation was ordered: CBC, CMP, magnesium, COVID-19, influenza, RSV, troponin, straight cath urinalysis, one-view chest x-ray Course: 14:48 hours My interpretation patient's laboratory evaluation as follows: WBC was elevated 15,100-differential revealed elevated neutrophils at 76, elevated monocytes at 11.6. Elevated glucose 132. Electrolytes were normal. Normal LFTs. D-dimer was elevated at 271. PT/INR elevated 1.2 and 13.6. Glucose elevated 132. Lactic acid was normal at 1.2. High sensitive troponin I was detectable but not elevated 3.2. Urinalysis revealed a high specific gravity suggests that the patient is dehydrated, 1+ protein, positive nitrates, positive leukocyte esterase. Microscopic revealed greater than 50 WBCs, 3-5 squamous cells, 2+ bacteria-this is consistent with a urinary tract infection Chest x-ray revealed new wedge-shaped infiltrate in the right upper lobe which is new and left lower lobe infiltrate which may have been present on the previous x-ray. Given this finding in the information that the patient has a new diagnosis of lung cancer, pulmonary embolism needs to be considered therefore I did order a CT pulmonary angiogram PE protocol further evaluate this chest x-ray finding. Patient was ordered to get normal saline IV x1 L, ceftriaxone 1 g IV and doxycycline 100 mg IV. These antibiotics would also cover the patient's urinary tract infection. 19:09 CT pulmonary angiogram PE protocol did not reveal any central emboli which is reassuring and suggests that the wedge-shaped infiltrate is not secondary to pulmonary embolism. The radiologist differential for this large wedge shaped infiltrate in the right upper lobe includes pneumonia, wedge shaped pulmonary infarct or pulmonary neoplasm-this could be the cancer that the [facility] states was diagnosed by PET scan. At this time I believe that the patient's fever is most likely caused by urinary tract infection but pneumonia still needs to be considered. Given her comorbid conditions the patient will need to be hospitalized for IV antibiotics and further evaluation. I did discuss the patient's presentation over tiger text with the covering hospitalist, Dr. Lao. Admission/Observation Consideration of admission/observation: Escalation of care including admission/observation considered (Yes) Lab Data MDM Lab Attestation statement: I reviewed the patient's lab results. 07/22/24 11:39 07/22/24 11:39 Labs: Lab Results 07/22/24 07/22/24 07/22/24 Range/Units 11:39 11:54 12:34 WBC 15.1 H (4.8-10.8) X10*3/uL RBC 4.80 (4.20-5.50) X10*6/uL Hgb 13.4 (12.0-16.0) g/dl Hct 41.4 (37.0-47.0) % MCV 86.3 (80.0-98.0) fL MCH 27.9 (27.0-33.0) pg MCHC 32.4 (31.0-35.0) g/dl RDW 14.0 (11.0-16.0) % Plt Count 250 (160-400) X10*3/uL MPV 10.9 (9.4-12.3) fL Immature Gran % (Auto) 0.5 H (0.0-0.4) % Neut % (Auto) 76.0 H (45-73) % Lymph % (Auto) 11.5 L (20-40) % [place] % (Auto) 11.6 H (2-11) % Eos % (Auto) 0.2 (0-4) % Baso % (Auto) 0.2 (0-2) % Lymph # (Auto) 1.7 (1.2-4.9) X10*3/uL [place] # (Auto) 1.8 H (0.1-1.2) X10*3/uL Eos # (Auto) 0.0 (0.0-0.4) X10*3/uL Baso # (Auto) 0.0 (0.0-0.2) X10*3/uL Abs Immat Gran (auto) 0.08 H (0.00-0.03) X10*3/uL Absolute Neuts (auto) 11.5 H (2.0-8.3) x10*3/uL Absolute Nucleated RBC 0.000 (0.0-0.012) X10*3/uL Nucleated RBC % (auto) 0.0 (0.0-0.2) /100WBC Smear Tech's Comments VERIFIED PT (10.9-12.4) SEC INR (0.9-1.1) APTT (26.0-36.8) SEC D-Dimer High Sensitivty NG/ML Sodium 136 (135-145) mmol/L Potassium 4.1 (3.3-5.1) mmol/L Chloride 102 (96-108) mmol/L Carbon Dioxide 26 (22-29) mmol/L Anion Gap 12 (12-20) BUN 11 (9-16) mg/dL Creatinine 0.86 (0.5-1.4) mg/dL Estim Creat Clear Calc 68.3 Estimated GFR > 60 POC Glucose 121 H (60-115) mg/dL Random Glucose 132 H (60-115) mg/dL Lactic Acid (0.5-2.0) mmol/L Calcium 9.9 (8.4-10.2) mg/dL Magnesium 2.0 (1.6-2.6) mg/dL Total Bilirubin 0.5 (0.0-1.0) mg/dL AST 15 (5-31) U/L ALT 17 (0-31) U/L Alkaline Phosphatase 87 (39-117) U/L Troponin I High Sens 3.2 (<3.5-17.0) ng/L Total Protein 7.1 (6.5-8.0) g/dL Albumin 3.7 (3.5-5.0) g/dL Lipase 10 (8-78) U/L Urine Color Dark Yellow Urine Appearance Clear Urine pH 5.5 (5.0-9.0) Ur Specific [place] >= 1.030 H (1.005-1.025) Urine Protein 30 (1+) H (Neg-Trace) mg/dL Urine Glucose (UA) Negative (Negative) mg/dL Urine Ketones Trace (Negative) mg/dL Urine Blood Negative (Negative) Urine Nitrite Positive H (Negative) Ur Leukocyte Esterase Moderate (2+) H (Negative) Urine RBC 0-2 (0-2) /HPF Urine WBC >50 H (0-5) /HPF Urine WBC Clumps Present Ur Squamous Epith Cells 3-5 (0-2) /HPF Urine Bacteria 2+ (None Seen) Hyaline Casts 3-5 (0-2) /LPF Influenza Type A (PCR) NEGATIVE (Negative) Influenza Type B (PCR) NEGATIVE (Negative) RSV RNA Qual (PCR) NEGATIVE (Negative) SARS-CoV-2 RNA (RT-PCR) NEGATIVE (Negative) 07/22/24 07/22/24 07/22/24 Range/Units 16:03 16:17 18:32 WBC (4.8-10.8) X10*3/uL RBC (4.20-5.50) X10*6/uL Hgb (12.0-16.0) g/dl Hct (37.0-47.0) % MCV (80.0-98.0) fL MCH (27.0-33.0) pg MCHC (31.0-35.0) g/dl RDW (11.0-16.0) % Plt Count (160-400) X10*3/uL MPV (9.4-12.3) fL Immature Gran % (Auto) (0.0-0.4) % Neut % (Auto) (45-73) % Lymph % (Auto) (20-40) % [place] % (Auto) (2-11) % Eos % (Auto) (0-4) % Baso % (Auto) (0-2) % Lymph # (Auto) (1.2-4.9) X10*3/uL [place] # (Auto) (0.1-1.2) X10*3/uL Eos # (Auto) (0.0-0.4) X10*3/uL Baso # (Auto) (0.0-0.2) X10*3/uL Abs Immat Gran (auto) (0.00-0.03) X10*3/uL Absolute Neuts (auto) (2.0-8.3) x10*3/uL Absolute Nucleated RBC (0.0-0.012) X10*3/uL Nucleated RBC % (auto) (0.0-0.2) /100WBC Smear Tech's Comments PT 13.6 H (10.9-12.4) SEC INR 1.2 H (0.9-1.1) APTT 35.0 (26.0-36.8) SEC D-Dimer High Sensitivty 271 NG/ML Sodium (135-145) mmol/L Potassium (3.3-5.1) mmol/L Chloride (96-108) mmol/L Carbon Dioxide (22-29) mmol/L Anion Gap (12-20) BUN (9-16) mg/dL Creatinine (0.5-1.4) mg/dL Estim Creat Clear Calc Estimated GFR POC Glucose 123 H (60-115) mg/dL Random Glucose (60-115) mg/dL Lactic Acid 1.2 (0.5-2.0) mmol/L Calcium (8.4-10.2) mg/dL Magnesium (1.6-2.6) mg/dL Total Bilirubin (0.0-1.0) mg/dL AST (5-31) U/L ALT (0-31) U/L Alkaline Phosphatase (39-117) U/L Troponin I High Sens (<3.5-17.0) ng/L Total Protein (6.5-8.0) g/dL Albumin (3.5-5.0) g/dL Lipase (8-78) U/L Urine Color Urine Appearance Urine pH (5.0-9.0) Ur Specific [place] (1.005-1.025) Urine Protein (Neg-Trace) mg/dL Urine Glucose (UA) (Negative) mg/dL Urine Ketones (Negative) mg/dL Urine Blood (Negative) Urine Nitrite (Negative) Ur Leukocyte Esterase (Negative) Urine RBC (0-2) /HPF Urine WBC (0-5) /HPF Urine WBC Clumps Ur Squamous Epith Cells (0-2) /HPF Urine Bacteria (None Seen) Hyaline Casts (0-2) /LPF Influenza Type A (PCR) (Negative) Influenza Type B (PCR) (Negative) RSV RNA Qual (PCR) (Negative) SARS-CoV-2 RNA (RT-PCR) (Negative) Independent Interpretation I performed an independent interpretation of an: Plain X-Ray Interpretation: My interpretation of the patient's chest x-ray is as follows: Right upper lobe wedge-shaped infiltrate, left lower lobe infiltrate new compared to the previous chest x-ray dated 01/27/2024 Radiology Impression Discussion of test interpretation with radiology: I have reviewed the radiologist's reading. Radiologist Impression: EXAMINATION: XR CHEST FINDINGS: The study is limited by portable technique, suboptimal inspiration, and patient body habitus. There is a right upper lobe, focal, wedge-shaped consolidation, new compared with January 27, 2024. Differential diagnosis includes, but is not limited to, pneumonia. Recommend clinical correlation. Left basilar hazy density suggesting pleural fluid, pleural thickening, atelectasis, and/or infiltrate, unchanged. No pneumothorax is seen. The cardiac silhouette appears normal in size. Severe degenerative changes of the glenohumeral joints. Mild degenerative changes of the spine. IMPRESSION: Findings as above. Electronically signed by: Willian Valerio MD 07/22/2024 04:[address] angio chest PE protocol IMPRESSION: Exam is limited in evaluation for pulmonary embolism because of image-degrading motion artifact and suboptimal timing of the contrast bolus. No central embolus identified. Large wedge-shaped consolidation in the right upper lobe. The differential diagnosis includes pneumonia, wedge-shaped pulmonary infarct, or pulmonary neoplasm. Continued follow-up to ensure resolution. Spondylosis of the partially visualized spine. Fleischner guidelines were followed. Electronically signed by: Kain Uriostegui MD 07/22/2024 05:55 PM Chronic Conditions Patient?s care impacted by: Diabetes, Hypertension and Other (Hyperlipidemia) Critical Care Time Critical Care Time Critical Care Time: Yes Total Critical Care Time: 80 Attestation: Critical Care: The patient was critically ill with a high probability of imminent or life threatening deterioration. I spent greater than 30 minutes of discontinuous time evaluating the patient,delivering critical care at the bedside, discussing and evaluating pertinent data with consultants. Critical care time does not include time spent performing separately billable procedures or teaching. Total time spent performing critical care was 80 minutes. Discharge Plan Discharge Patient Disposition: Admitted As Inpatient Print Language: Italian
[2024-07-22 11:57] LABS: Glucose, Whole Blood 121 mg/dL (60-115)
--- NOTE | 2024-07-22 12:11 | ECG_ITS ---
Test Reason : CHEST PAIN Blood Pressure : / mmHG Vent. Rate : 089 BPM Atrial Rate : 089 BPM P-R Int : 152 ms QRS Dur : 098 ms QT Int : 374 ms P-R-T Axes : 000 107 147 degrees QTc Int : 455 ms Normal sinus rhythm Incomplete right bundle branch block Possible Anterolateral infarct , age undetermined Abnormal ECG When compared with ECG of 06-SEP-2022 01:08, QRS axis Shifted right T wave inversion now evident in Anterolateral leads Referred By: Quintin Perez Electronically Signed By:Oumar Jacinto
[2024-07-22 12:12] LABS: Alanine Aminotransferase 17 U/L (0-31); Albumin Level 3.7 g/dL (3.5-5.0); Alkaline Phosphatase 87 U/L (39-117); Anion Gap 12 (12-20); Aspartate Amino Transferase 15 U/L (5-31); Bilirubin Total 0.5 mg/dL (0.0-1.0); Blood Urea Nitrogen 11 mg/dL (9-16); Calcium 9.9 mg/dL (8.4-10.2); Carbon Dioxide 26 mmol/L (22-29); Chloride 102 mmol/L (96-108); Creatinine Clr Calc Pharmacy 68.3; Estimated Glomerular Filt Rate > 60; Glucose Random 132 mg/dL (60-115); Potassium 4.1 mmol/L (3.3-5.1); Sodium 136 mmol/L (135-145); Total Protein 7.1 g/dL (6.5-8.0)
[2024-07-22 12:22] LABS: Influenza A PCR NEGATIVE (Negative); Influenza B PCR NEGATIVE (Negative); Resp Syncy Virus RNA Qual PCR NEGATIVE (Negative); SARS COV2 PCR INHOUSE NEGATIVE (Negative)
[2024-07-22 12:25] LABS: SLIDE REVIEW VERIFIED
[2024-07-22 12:40] LABS: Appearance Urine Clear; Color Urine Dark Yellow; Glucose Urine UA Negative (Negative); Leukocyte Esterase Urine Moderate (2+) (Negative); Nitrite Urine Positive (Negative); PH 5.5 (5.0-9.0); Specific Gravity - Urine >= 1.030 (1.005-1.025); UMIC TRIGGER UACC YES; Urine Blood Negative (Negative); Urine Ketones Trace mg/dL (Negative); Urine Protein 30 (1+) mg/dL (Neg-Trace)
[2024-07-22 12:48] LABS: Bacteria Urine 2+ (None Seen); RBC Urine 0-2 /HPF (0-2); UACC Culture Trigger YES; WBC Clumps Urine Present; WBC Urine >50 /HPF (0-5)
[2024-07-22 14:06] LABS: Lipase 10 U/L (8-78)
[2024-07-22 14:16] LABS: Troponin-I High Sensitivity 3.2 ng/L (<3.5-17.0)
--- NOTE | 2024-07-22 15:31 | PC.NURSE ---
Pt hard stick. Taken to CT scan. Noted to be 90-93% on RA, placed on 2L O2 NC and improved to >94%
[2024-07-22] MEDS: 0.9 % Sodium Chloride 1,000 ML 999 ML IV (15:47)
[2024-07-22] MEDS: iohexoL 350 MG/ML 100 ML INFUS..BTL IV (15:47)
[2024-07-22] MEDS: cefTRIAXone sodium 1 GM VIAL IVPUSH (16:27)
[2024-07-22] MEDS: Doxycycline Hyclate 100 MG in 0.9 % Sodium Chloride 250 ML 166.67 MG IV ×2 (16:28→20:06)
[2024-07-22 16:34] LABS: INTERNATIONAL NORM RATIO 1.2 (0.9-1.1); Prothrombin Time 13.6 SEC (10.9-12.4)
[2024-07-22] MEDS: Acetaminophen 325 MG TABLET 975 MG PO (16:35)
[2024-07-22 16:36] LABS: D Dimer High Sensitivity 271 NG/ML
[2024-07-22 16:44] LABS: Lactic Acid 1.2 mmol/L (0.5-2.0)
--- NOTE | 2024-07-22 17:24 | PC.NURSE ---
Late entry, pt noted to spike fever. Tachy and having hallucinations, 102 rectal. Medicated with tylenol per NOV. Per staff and pt, pt takes meds whole in applesauce.
[2024-07-22 18:37] LABS: Glucose, Whole Blood 123 mg/dL (60-115)
--- NOTE | 2024-07-22 19:24 | P.HPHOSP_ITS ---
History of Present Illness Date of Service: 07/22/24 Chief Complaint: Fever This is a 78-year-old female with pertinent history of CVA with left hemiplegia, zeq-wbbldmh-yqafofwgw diabetes mellitus, gastroesophageal reflux disease, mood disorder, seizure disorder, hypertension, mixed hyperlipidemia, peripheral neuropathy, dysphagia, morbid obesity was brought to the emergency department for evaluation of fevers. Patient's symptoms started 1 day prior to presentation. She has been having fevers and chills. Also complaining of dysuria and change in color and odor of urine. Patient's temperature at retirement was 103 degrees F. Also has been having a cough but that has been ongoing for a while. Admits fatigue and easy fatigability. Admits nausea but no vomiting. Denies palpitations, shortness of breath, chest pain, abdominal pain, changes in urinary or bowel habits. In the emergency department, patient was on found to be septic and urine concerning for UTI. Imaging with right upper lobe consolidation Review of Systems 2 Constitutional: Constitutional: Reports chills, Reports fatigue and Reports fever(s) Cardiovascular: Cardiovascular: Reports no additional cardiovascular complaints Respiratory: Respiratory: Reports cough Genitourinary: Genitourinary: Reports dysuria Endocrine: Endocrine: Reports fatigue PMFSH Medical History Peripheral neuropathy Hypertension Dysphagia Gastroesophageal reflux disease Seizure disorder Non-insulin dependent type 2 diabetes mellitus Mood disorder Paralysis CVA (cerebral vascular accident) Pertinent family history: Not significant due to age Social History Alcohol intake: never Smoked in Last 30 Days: No Use of substances other than those prescribed or required for medical reasons: No Advance Directives: No Advance Directives Information Provided: Yes Meds Allergies Allergy/AdvReac Type Severity Reaction Status Date / Time azithromycin [AZITHROMYCIN] Allergy Unknown ITCHY Verified 07/22/24 11:16 codeine [CODEINE] AdvReac Unknown NAUSEA Verified 05/25/24 23:00 codeine Allergy Unknown facial Uncoded 05/25/24 23:00 flushing/vomiting Home Medications ?Medication ?Instructions ?Recorded ?Confirmed ?Last Taken ?Type acetaminophen 500 mg tablet 500 mg PO Q6H PRN Pain 07/22/24 Unknown History aspirin 81 mg tablet,delayed 81 mg PO DAILY 07/22/24 Unknown History release clonazepam 0.5 mg tablet 0.5 mg PO DAILY 07/22/24 Unknown History duloxetine 30 mg capsule,delayed 30 mg PO DAILY 07/22/24 Unknown History release duloxetine 60 mg capsule,delayed 60 mg PO DAILY 07/22/24 Unknown History release gabapentin 600 mg tablet 600 mg PO BID 07/22/24 Unknown History levetiracetam 500 mg tablet 500 mg PO BID 07/22/24 Unknown History lisinopril 40 mg tablet 40 mg PO DAILY 07/22/24 Unknown History loratadine 10 mg tablet 10 mg PO DAILY 07/22/24 Unknown History melatonin 3 mg tablet 3 mg PO BEDTIME 07/22/24 Unknown History metformin 500 mg tablet 500 mg PO BID 07/22/24 Unknown History multivitamin with minerals-ferrous 1 tab PO DAILY 07/22/24 Unknown History sulfate 4.5 mg iron tablet (One Daily Multivitamins with Minerals) oxcarbazepine 150 mg tablet 150 mg PO BID 07/22/24 Unknown History pantoprazole 40 mg tablet,delayed 40 mg PO DAILY 07/22/24 Unknown History release polyethylene glycol 3350 17 17 g PO DAILY 07/22/24 Unknown History gram/dose oral powder rosuvastatin 20 mg tablet 20 mg PO BEDTIME 07/22/24 Unknown History verapamil 180 mg tablet,extended 180 mg PO DAILY 07/22/24 Unknown History release Physical Exam 2 Vital Signs and Narrative: Vital Signs: Last Vital Signs Temp 99.1 F 07/22/24 17:32 Pulse 100 07/22/24 18:33 Resp 19 07/22/24 18:33 BP 158/69 H 07/22/24 18:33 Pulse Ox 97 07/22/24 18:33 O2 Del Method Nasal Cannula 07/22/24 18:33 O2 Flow Rate 2 07/22/24 18:33 BMI result Body Mass Index 49.0 Middle-aged female lying in bed in no distress Neck supple, no JVD Regular rate and rhythm, S1-S2 heard Right-sided crackles present Abdomen soft nontender, no guarding, no rigidity Patient is awake, alert and oriented x2 ; left-sided weakness present Psych: Normal mood No pedal edema Results Labs 07/22/24 11:39 07/22/24 11:39 Labs: Laboratory Results - last 24 hr 07/22/24 07/22/24 07/22/24 11:39 11:54 12:34 MCV 86.3 MCH 27.9 MCHC 32.4 RDW 14.0 Plt Count 250 MPV 10.9 Immature Gran % (Auto) 0.5 H Neut % (Auto) 76.0 H Lymph % (Auto) 11.5 L [place] % (Auto) 11.6 H Eos % (Auto) 0.2 Baso % (Auto) 0.2 Lymph # (Auto) 1.7 [place] # (Auto) 1.8 H Eos # (Auto) 0.0 Baso # (Auto) 0.0 Abs Immat Gran (auto) 0.08 H Absolute Neuts (auto) 11.5 H Absolute Nucleated RBC 0.000 Nucleated RBC % (auto) 0.0 Smear Tech's Comments VERIFIED PT INR APTT D-Dimer High Sensitivty Anion Gap 12 Estim Creat Clear Calc 68.3 Estimated GFR > 60 POC Glucose 121 H Random Glucose 132 H Lactic Acid Calcium 9.9 Magnesium 2.0 Total Bilirubin 0.5 AST 15 ALT 17 Alkaline Phosphatase 87 Troponin I High Sens 3.2 Total Protein 7.1 Albumin 3.7 Lipase 10 Urine Color Dark Yellow Urine Appearance Clear Urine pH 5.5 Ur Specific [place] >= 1.030 H Urine Protein 30 (1+) H Urine Glucose (UA) Negative Urine Ketones Trace Urine Blood Negative Urine Nitrite Positive H Ur Leukocyte Esterase Moderate (2+) H Urine RBC 0-2 Urine WBC >50 H Urine WBC Clumps Present Ur Squamous Epith Cells 3-5 Urine Bacteria 2+ Hyaline Casts 3-5 Influenza Type A (PCR) NEGATIVE Influenza Type B (PCR) NEGATIVE RSV RNA Qual (PCR) NEGATIVE SARS-CoV-2 RNA (RT-PCR) NEGATIVE 07/22/24 07/22/24 07/22/24 16:03 16:17 18:32 MCV MCH MCHC RDW Plt Count MPV Immature Gran % (Auto) Neut % (Auto) Lymph % (Auto) [place] % (Auto) Eos % (Auto) Baso % (Auto) Lymph # (Auto) [place] # (Auto) Eos # (Auto) Baso # (Auto) Abs Immat Gran (auto) Absolute Neuts (auto) Absolute Nucleated RBC Nucleated RBC % (auto) Smear Tech's Comments PT 13.6 H INR 1.2 H APTT 35.0 D-Dimer High Sensitivty 271 Anion Gap Estim Creat Clear Calc Estimated GFR POC Glucose 123 H Random Glucose Lactic Acid 1.2 Calcium Magnesium Total Bilirubin AST ALT Alkaline Phosphatase Troponin I High Sens Total Protein Albumin Lipase Urine Color Urine Appearance Urine pH Ur Specific [place] Urine Protein Urine Glucose (UA) Urine Ketones Urine Blood Urine Nitrite Ur Leukocyte Esterase Urine RBC Urine WBC Urine WBC Clumps Ur Squamous Epith Cells Urine Bacteria Hyaline Casts Influenza Type A (PCR) Influenza Type B (PCR) RSV RNA Qual (PCR) SARS-CoV-2 RNA (RT-PCR) Imaging Radiologist's Impressions: Impressions Chest X-Ray 07/22/24 12:12 IMPRESSION: Findings as above. Electronically signed by: Willian Valerio MD 07/22/2024 04:22 PM EDT RP Chest CTA 07/22/24 14:46 IMPRESSION: Exam is limited in evaluation for pulmonary embolism because of image-degrading motion artifact and suboptimal timing of the contrast bolus. No central embolus identified. Large wedge-shaped consolidation in the right upper lobe. The differential diagnosis includes pneumonia, wedge-shaped pulmonary infarct, or pulmonary neoplasm. Continued follow-up to ensure resolution. Spondylosis of the partially visualized spine. Fleischner guidelines were followed. Electronically signed by: Kain Uriostegui MD 07/22/2024 05:55 PM EDT RP Assessment and Plan (1) Sepsis: Status: Acute (2) Urinary tract infection: Status: Acute Plan This is a 78-year-old female with pertinent history of CVA with left hemiplegia, whv-awuwmff-bcylvtfhw diabetes mellitus, gastroesophageal reflux disease, mood disorder, seizure disorder, hypertension, mixed hyperlipidemia, peripheral neuropathy, dysphagia, morbid obesity was brought to the emergency department for evaluation of fevers. #. Sepsis due to acute UTI: Resuscitated with IV crystalloids. Lactic acid and blood culture obtained. Initiating empiric IV ceftriaxone. Urine culture pending. #. Right upper lobe consolidation: Pneumonia versus pulmonary neoplasm. Initiated on empiric IV antibiotics. Patient was diagnosed with right-sided lung cancer on 02/19/2024 by PET scan. Is scheduled for outpatient lung biopsy next week. #. Khe-mjokhgz-domegpfwx diabetes mellitus: Initiating Accu-Cheks with sliding scale insulin every 6 hours #. History of CVA with left-sided hemiplegia: On aspirin and high-intensity statin #. Gastroesophageal reflux disease: On PPI #. Mood disorder: Continue home mood stabilizers #. Seizure disorder: On Keppra #. Peripheral neuropathy: On gabapentin #. Dysphagia: Will keep NPO until speech evaluation. Is on soft diet with thin liquids at retirement. #. Hypertension: Continue home antihypertensives #. Obesity: Counseled regarding diet Med rec pending DVT prophylaxis: Lovenox DNR/DNI Admit as inpatient and will require two night minimum hospital stay for IV antibiotics (as above), which is not possible in a lesser acute setting. Quality Stroke Does the patient have a stroke diagnosis?: No VTE Prior VTE?: No VTE Risk Level:: Medical - moderate - high VTE Device Contraindication: Treatment Not Indicated VTE Drug Contraindication: N/A - Med Ordered
[2024-07-22 20:05] LABS: Glucose, Whole Blood 114 mg/dL (60-115)
[2024-07-22] MEDS: Cyclobenzaprine HCl 5 MG TABLET PO (20:05)
[2024-07-22] MEDS: Enoxaparin Sodium 40 MG/0.4 ML SYRINGE SUBCUT (20:06)
--- NOTE | 2024-07-22 20:25 | PC.NURSE ---
patient blood pressure elevated, notified. New orders received.
[2024-07-22] MEDS: Labetalol HCL 100 MG/20 ML VIAL 20 MG IVPUSH ×2 (20:29→22:22)
[2024-07-22] MEDS: levETIRAcetam in NaCl (iso-os) 500 MG/100 ML PIGGYBACK 400 MG IV (21:48)
--- NOTE | 2024-07-22 21:51 | PHA.MEDREC ---
Pharmacy Consult ? Medication Reconciliation Pharmacy has completed the medication reconciliation. [facility] Patient had Oxcarbazepine 150mg, Clonazepam 0.5mg, Duleoxetine 30mg and 60mg recently filled but they were not on the list from the shelter, followed shelter list.
--- NOTE | 2024-07-22 21:53 | PHA.MEDREC ---
Addendum entered by Genet Do RPh 07/22/24 22:10: Reviewed by [facility], oxcarbazepine, cymbalta, and klonopin filled consistently x 1 year. Added to med rec Original Note: Pharmacy Consult ? Medication Reconciliation Pharmacy has completed the medication reconciliation. Confirmed mediations with lsit from [facility]. Patient had Oxcarbazepine 150mg, Clonazepam 0.5mg, Duleoxetine 30mg and 60mg recently filled but they were not on the list from the long-term, followed long-term list. Patient claims she took her medications today.
--- NOTE | 2024-07-22 22:33 | PC.NURSE ---
BP continues to remain elevated, more labetalol given. MD aware as well as oncoming nurse upstairs.
[2024-07-23 00:07] VITALS: BP 168/95; PULSE 111; RESP 18; TEMP 37.3; O2SAT 97
[2024-07-23 00:20] LABS: Glucose, Whole Blood 134 mg/dL (60-115)
[2024-07-23] MEDS: 0.9 % Sodium Chloride Flush 3 ML SYRINGE IVFLUSH ×4 (00:34→20:21)
[2024-07-23 03:37] VITALS: BP 169/70; PULSE 117; RESP 18; TEMP 36.7; O2SAT 92
[2024-07-23 06:04] LABS: Glucose, Whole Blood 142 mg/dL (60-115)
[2024-07-23 07:48] VITALS: BP 195/78; PULSE 114; RESP 18; TEMP 36.4; O2SAT 92
[2024-07-23] MEDS: Doxycycline Hyclate 100 MG in 0.9 % Sodium Chloride 250 ML 166.67 MG IV ×2 (08:23→20:21)
[2024-07-23 11:28] LABS: Glucose, Whole Blood 139 mg/dL (60-115)
--- NOTE | 2024-07-23 11:29 | MHC.CM.PN ---
Addendum entered by Janie Maier RN 07/23/24 15:25: CM RECEIVED CALL BACK FROM [facility] RN FELIBERTO WHO WILL FAX COPY OF HCP TO CM OFFICE, MELINDAID PROVIDED W/UPDATE AND REQUESTS CM CONTACT NURSE RADHA BENDER [phone] FOR DC OR GH. [facility] REPORTS DIRECTOR NURYS [phone] WILL BE OFF FROM TOMORROW 07/24 THROUGH NEXT WEEK. [employer] WILL FAX COPY OF PT'S HCP TO CM OFFICE. Original Note: IMM 07/23/24 DELIVERED TO BEDSIDE, PT ATTEMPTED TO MEET W/PT HOWEVER PT REQUESTED CM SPEAK TO SISTER SHE HAS BEEN POKED AND PRODDED AND DIDN'T WANT TO ANSWER QUESTIONS, CM ATTEMPTED TO CONTACT PT'S SISTER/HCP MICAELA AT NUMBER ON FILE, DETAILED MESSAGE LET, CM ALSO CONTACTED PT'S ON FILE HOWEVER NUMBER INCORRECT AND PT WAS MOVED TO A DIFFERENT AT [phone] [place] [address] IN [place], CM CONTACTED NEW WHICH STAFF SAID SHE MOVED TO AFTER A STROKE. PER STAFF PT TAKES MEDS WHOLE IN APPLESAUCE, FEEDS HERSELF HOWEVER THE CUT UP HER FOOD IN SMALL PIECES FOR HER, PT TRANSFERS TO W/C IN [facility] AND HER HCP IS NOT INVOKED, STAFF DID VERIFY PT'S HCP IS SISTER MICAELA AND CM LEFT CM OFFICE NUMBER FOR [employer]TERTAINMENT AGENT OR NURYS THE DRY DIP WORKER TO CALL CM BACK AND CM FAX # SO THEY CAN FAX ORDERS FOR HOSPITALIST TO SIGN PRIOR TO DC. PCP VERIFIED DR. LYONS AT [address] [facility] [address] IN [facility], COPY OF HCP REQUESTED
[2024-07-23 11:36] LABS: Anion Gap 15 (12-20); Blood Urea Nitrogen 9 mg/dL (9-16); Calcium 9.9 mg/dL (8.4-10.2); Carbon Dioxide 21 mmol/L (22-29); Chloride 105 mmol/L (96-108); Creatinine Clr Calc Pharmacy 77.4; Estimated Glomerular Filt Rate > 60; Glucose Random 134 mg/dL (60-115); Potassium 4.1 mmol/L (3.3-5.1); Sodium 137 mmol/L (135-145)
[2024-07-23 11:53] LABS: Basophils Percent Auto 0.2 % (0-2); Hematocrit 39.7 % (37.0-47.0); Hemoglobin 12.8 g/dl (12.0-16.0); Imm Gran Abs Auto 0.11 X10*3/uL (0.00-0.03); Imm Gran Pct Auto 0.7 % (0.0-0.4); Lymphocytes Absolute Auto 1.3 X10*3/uL (1.2-4.9); Lymphocytes Percent Auto 7.8 % (20-40); MANUAL DIFF FLAG SCAN; Mean Corpuscular HGB Conc 32.2 g/dl (31.0-35.0); Mean Corpuscular Hemoglobin 27.4 pg (27.0-33.0); Mean Corpuscular Volume 84.8 fL (80.0-98.0); Mean Platelet Volume 11.2 fL (9.4-12.3); Monocytes Absolute Auto 2.2 X10*3/uL (0.1-1.2); Monocytes Percent Auto 13.1 % (2-11); Neutrophils Percent Auto 78.2 % (45-73); Platelet Count 257 X10*3/uL (160-400); Red Blood Count 4.68 X10*6/uL (4.20-5.50); Red Cell Distribution Width 14.2 % (11.0-16.0); SCAN SMEAR FLAG 1; White Blood Count 16.6 X10*3/uL (4.8-10.8)
[2024-07-23 12:45] LABS: SLIDE REVIEW VERIFIED
--- NOTE | 2024-07-23 13:29 | HO.PM.IMPN ---
Subjective Subjective Date of Service: 07/23/24 Interval History: No acute issues overnight. T-max 102 degrees Review of Systems Denies chest pain Denies shortness of breath Denies nausea vomiting diarrhea Denies fever chills Physical Exam Vital Signs: Vital Signs: Last Vital Signs Temp 97.6 F 07/23/24 07:48 Pulse 114 H 07/23/24 07:48 Resp 18 07/23/24 07:48 BP 195/78 H 07/23/24 07:48 Pulse Ox 92 07/23/24 07:48 O2 Del Method Room Air 07/23/24 07:48 O2 Flow Rate 2 07/22/24 18:33 BMI result Body Mass Index 49.0 Const: Other: Awake alert no acute distress Resp: Other: Clear to auscultation bilaterally no rales rhonchi or wheezes Cardio: Other: No S4; positive S1-S2; no S3 murmurs rubs or gallops GI: Other: Soft nontender nondistended normoactive bowel sounds Extrem: Other: No edema bilaterally Objective Data Active Medications Acetaminophen (Acetaminophen 325 Mg Tablet) 650 mg PO Q6H PRN PRN Reason: Pain, Mild (Pain Scale 1-3), fever or headache Benzonatate (Benzonatate 100 Mg Capsule) 100 mg PO TID PRN PRN Reason: Cough Calcium Carbonate (Calcium Carbonate 750 Mg Tab.Chew) 750 mg PO Q4H PRN PRN Reason: Heartburn Ceftriaxone Sodium (Ceftriaxone Sodium 1 Gm Vial) 1 gm IVPUSH Q24H REPLACED BY [facility] Enoxaparin Sodium (Enoxaparin Sodium 40 Mg/0.4 Ml Syringe) 40 mg SUBCUT Q24H REPLACED BY [facility] Last Admin: 07/22/24 20:06 Dose: 40 mg Documented By: JACKIE Glucose (Glucose Gel 15 Gm Gel..Gram.) 15 gm PO Q15M PRN; Protocol PRN Reason: per Hypoglycemia Standing Ord. Doxycycline Hyclate 100 mg/ (Sodium Chloride) 250 mls @ 166.67 mls/hr IV BID REPLACED BY [facility] Last Infusion: 07/23/24 10:05 Dose: Infused Documented By: GÓMEZ Dextrose (D10) 250 mls @ 750 mls/hr IV Q15M PRN; Protocol PRN Reason: per Hypoglycemia Standing Ord. Insulin Human Lispro (Insulin Lispro 100 Unit/Ml 3 Ml Vial) 0 unit SUBCUT Q6H REPLACED BY [facility]; Protocol Last Admin: 07/23/24 11:44 Dose: Not Given Documented By: GÓMEZ Non-Admin Reason: No Insulin Coverage Magnesium Hydroxide (Milk Of Magnesia 30 Ml Oral.Susp) 30 ml PO DAILY PRN PRN Reason: Constipation Melatonin (Melatonin 3 Mg Tablet) 6 mg PO BEDTIME PRN PRN Reason: Insomnia Ondansetron HCl (Ondansetron Hcl 4 Mg/2 Ml Vial) 4 mg IVPUSH Q8H PRN PRN Reason: Nausea and Vomiting Sodium Chloride (0.9 % Sodium Chloride Flush 3 Ml Syringe) 3 ml IVFLUSH QSHIFT REPLACED BY [facility] Last Admin: 07/23/24 08:24 Dose: 3 ml Documented By: GÓMEZ Labs 07/23/24 11:00 07/23/24 11:00 Labs: Laboratory Results - last 24 hr 07/22/24 07/22/24 07/22/24 11:39 16:03 16:17 MCV MCH MCHC RDW Plt Count MPV Immature Gran % (Auto) Neut % (Auto) Lymph % (Auto) [place] % (Auto) Eos % (Auto) Baso % (Auto) Lymph # (Auto) [place] # (Auto) Eos # (Auto) Baso # (Auto) Abs Immat Gran (auto) Absolute Neuts (auto) Absolute Nucleated RBC Nucleated RBC % (auto) Smear Tech's Comments PT 13.6 H INR 1.2 H APTT 35.0 D-Dimer High Sensitivty 271 Anion Gap Estim Creat Clear Calc Estimated GFR POC Glucose Random Glucose Lactic Acid 1.2 Calcium Troponin I High Sens 3.2 Lipase 07/22/24 07/22/24 07/23/24 18:32 20:00 00:16 MCV MCH MCHC RDW Plt Count MPV Immature Gran % (Auto) Neut % (Auto) Lymph % (Auto) [place] % (Auto) Eos % (Auto) Baso % (Auto) Lymph # (Auto) [place] # (Auto) Eos # (Auto) Baso # (Auto) Abs Immat Gran (auto) Absolute Neuts (auto) Absolute Nucleated RBC Nucleated RBC % (auto) Smear Tech's Comments PT INR APTT D-Dimer High Sensitivty Anion Gap Estim Creat Clear Calc Estimated GFR POC Glucose 123 H 114 134 H Random Glucose Lactic Acid Calcium Troponin I High Sens Lipase 07/23/24 07/23/24 07/23/24 06:00 11:00 11:21 MCV 84.8 MCH 27.4 MCHC 32.2 RDW 14.2 Plt Count 257 MPV 11.2 Immature Gran % (Auto) 0.7 H Neut % (Auto) 78.2 H Lymph % (Auto) 7.8 L [place] % (Auto) 13.1 H Eos % (Auto) 0.0 Baso % (Auto) 0.2 Lymph # (Auto) 1.3 [place] # (Auto) 2.2 H Eos # (Auto) 0.0 Baso # (Auto) 0.0 Abs Immat Gran (auto) 0.11 H Absolute Neuts (auto) 13.0 H Absolute Nucleated RBC 0.000 Nucleated RBC % (auto) 0.0 Smear Tech's Comments VERIFIED PT INR APTT D-Dimer High Sensitivty Anion Gap 15 Estim Creat Clear Calc 77.4 Estimated GFR > 60 POC Glucose 142 H 139 H Random Glucose 134 H Lactic Acid Calcium 9.9 Troponin I High Sens Lipase Microbiology Microbiology Results: Microbiology 07/22/24 Unknown Urine Culture - Preliminary Urine Catheterized - Straight Catheter Gram negative dona 07/22/24 16:17 Blood Culture - Preliminary Blood - Venous Assessment and Plan (1) Sepsis: Status: Acute (2) Pneumonia: Status: Acute Plan This is a 78-year-old female with pertinent history of CVA with left hemiplegia, erx-uugwfcg-jdqkvhswa diabetes mellitus, gastroesophageal reflux disease, mood disorder, seizure disorder, hypertension, mixed hyperlipidemia, peripheral neuropathy, dysphagia, morbid obesity was brought to the emergency department for evaluation of fevers. 1.Sepsis due to acute UTI(sepsis resolved) -ceftriaxone (2) -adjust pending cultures 2.Right upper lobe consolidation -treat empirically as infiltrate -doxycycline/ceftriaxone (2) -titrate O2 as tolerated 3.Qdg-nspoabc-pzyjebdtv diabetes mellitus -diabetic diet. Appreciate speech input -acceptable control on current therapies -lispro correctional scale -adjust as indicated 4.History of CVA w/left-sided hemiplegia -stable and well compensated -continue outpatient therapies 5.Seizure disorder/Peripheral neuropathy -continue outpatient therapies 6.Hypertension -acceptable control on current therapies -adjust as indicated Lovenox DNR/DNI Requires ongoing hospitalization to treat acute UTI causing sepsis with IV antibiotics Quality Stroke Does the patient have a stroke diagnosis?: No VTE Prior VTE?: No VTE Risk Level:: Medical - moderate - high VTE Device Contraindication: Treatment Not Indicated VTE Drug Contraindication: N/A - Med Ordered
--- NOTE | 2024-07-23 13:47 | MHC.SL.SWA ---
Speech Pathologist Impression: Risk of Aspiration Due to: Medically Fragile History of Pneumonia Dysphasia Diet Status: Liquid Consistency and Strategies for Safe Swallow: Liquid Intake Recommendation: Thin Liquid Intake Strategies: Small Sips Solid Food Consistency: Dietary Recommendations: Chopped/Advanced (NDD3) Oral Medication Intake: Whole with Puree Please contact the pharmacy regarding appropriate crushable or liquid drug formulations that are available whenever modified delivery is recommended. Compensatory Strategies and Precautions to be Taken for Safe Swallow: Sitting Upright (90 deg) Liquids from Straw Small Bites and Sips Alternate Liquids/Solids Rate of Ingestion Change Oral Check Avoid Specific Foods Supervision While Eating and Drinking for Safe Swallow: Total Supervision (1:1) Foods to Avoid: Mixed consistencies, overly hard to chew solids. Swallowing Recommended Treatments: Compens. Strategy Educat. Recommendation for Speech: Inpatient Speech Therapy Frequency/Duration: Daily Date Range for Service Req: Admission Timeline to reassess: PRN Roofing Contractor Clinican/Clinical Fellow: No Supervisory Statement: I have reviewed and agree with the student/clinical fellow's documentation: N/A Speech Language Pathologist: Matteo Orta M.A., CCC-BACTERIOLOGIST SOIL
[2024-07-23] MEDS: levETIRAcetam 500 MG TABLET PO ×2 (14:39→20:21)
[2024-07-23] MEDS: DULoxetine HCl 30 MG CAPSULE.DR PO (14:39)
[2024-07-23] MEDS: Gabapentin 600 MG TABLET PO (14:39)
[2024-07-23] MEDS: lisinopriL 40 MG TABLET PO (14:39)
[2024-07-23] MEDS: OXcarbazepine 150 MG TABLET PO ×2 (14:39→20:20)
[2024-07-23] MEDS: Aspirin Enteric Coated 81 MG TABLET.DR PO (14:40)
[2024-07-23] MEDS: Acetaminophen 325 MG TABLET 650 MG PO ×2 (14:40→20:28)
[2024-07-23 15:25] VITALS: BP 124/76; PULSE 104; RESP 18; TEMP 36.8; O2SAT 92
[2024-07-23] MEDS: cefTRIAXone sodium 1 GM VIAL IVPUSH (15:58)
[2024-07-23 16:25] LABS: Glucose, Whole Blood 137 mg/dL (60-115)
[2024-07-23] MEDS: Omeprazole 20 MG CAPSULE.DR PO (17:21)
[2024-07-23 19:25] VITALS: BP 147/78; PULSE 98; RESP 18; TEMP 36.8; O2SAT 96
[2024-07-23 20:10] LABS: Glucose, Whole Blood 103 mg/dL (60-115)
[2024-07-23] MEDS: Gabapentin 600 MG TABLET 1200 MG PO (20:20)
[2024-07-23] MEDS: VerapamiL HCL SR 180 MG TABLET.ER 360 MG PO (20:20)
[2024-07-23] MEDS: Enoxaparin Sodium 40 MG/0.4 ML SYRINGE SUBCUT (20:21)
[2024-07-23] MEDS: Atorvastatin Calcium 80 MG TABLET PO (20:21)
[2024-07-24 03:37] VITALS: BP 125/62; PULSE 88; RESP 18; TEMP 37.1; O2SAT 98
[2024-07-24 07:16] VITALS: BP 132/86; PULSE 103; RESP 16; TEMP 36; O2SAT 95
[2024-07-24 07:42] LABS: Glucose, Whole Blood 128 mg/dL (60-115)
[2024-07-24] MEDS: 0.9 % Sodium Chloride Flush 3 ML SYRINGE IVFLUSH ×3 (08:03→21:29)
[2024-07-24] MEDS: levETIRAcetam 500 MG TABLET PO ×2 (08:04→20:11)
[2024-07-24] MEDS: Aspirin Enteric Coated 81 MG TABLET.DR PO (08:04)
[2024-07-24] MEDS: Gabapentin 600 MG TABLET PO ×2 (08:04→14:27)
[2024-07-24] MEDS: DULoxetine HCl 30 MG CAPSULE.DR PO (08:04)
[2024-07-24] MEDS: lisinopriL 40 MG TABLET PO (08:04)
[2024-07-24] MEDS: OXcarbazepine 150 MG TABLET PO ×2 (08:05→20:11)
[2024-07-24] MEDS: Acetaminophen 325 MG TABLET 650 MG PO ×3 (08:05→20:52)
[2024-07-24] MEDS: Multivitamin TABLET 1 TAB PO (08:05)
[2024-07-24] MEDS: Loratadine 10 MG TABLET PO (08:05)
[2024-07-24] MEDS: Doxycycline Hyclate 100 MG in 0.9 % Sodium Chloride 250 ML 166.67 MG IV (08:06)
[2024-07-24 10:28] LABS: MANUAL DIFF FLAG NO
[2024-07-24 10:35] LABS: Basophils Percent Auto 0.3 % (0-2); Eosinophils Absolute Auto 0.1 X10*3/uL (0.0-0.4); Eosinophils Percent Auto 1.3 % (0-4); Hematocrit 37.5 % (37.0-47.0); Hemoglobin 12.1 g/dl (12.0-16.0); Imm Gran Abs Auto 0.05 X10*3/uL (0.00-0.03); Imm Gran Pct Auto 0.5 % (0.0-0.4); Lymphocytes Absolute Auto 1.2 X10*3/uL (1.2-4.9); Lymphocytes Percent Auto 11.8 % (20-40); Mean Corpuscular HGB Conc 32.3 g/dl (31.0-35.0); Mean Corpuscular Hemoglobin 27.6 pg (27.0-33.0); Mean Corpuscular Volume 85.6 fL (80.0-98.0); Mean Platelet Volume 10.8 fL (9.4-12.3); Monocytes Percent Auto 10.1 % (2-11); Neutrophils Absolute Auto 7.5 x10*3/uL (2.0-8.3); Platelet Count 268 X10*3/uL (160-400); Red Blood Count 4.38 X10*6/uL (4.20-5.50); Red Cell Distribution Width 14.2 % (11.0-16.0); White Blood Count 9.9 X10*3/uL (4.8-10.8)
[2024-07-24 10:50] LABS: Alanine Aminotransferase 14 U/L (0-31); Albumin Level 3.2 g/dL (3.5-5.0); Alkaline Phosphatase 90 U/L (39-117); Anion Gap 13 (12-20); Aspartate Amino Transferase 24 U/L (5-31); Bilirubin Total 0.2 mg/dL (0.0-1.0); Blood Urea Nitrogen 15 mg/dL (9-16); Calcium 9.8 mg/dL (8.4-10.2); Carbon Dioxide 25 mmol/L (22-29); Chloride 104 mmol/L (96-108); Creatinine Clr Calc Pharmacy 72.6; Estimated Glomerular Filt Rate > 60; Glucose Fasting 198 mg/dL (60-99); Sodium 138 mmol/L (135-145); Total Protein 6.8 g/dL (6.5-8.0)
[2024-07-24 11:12] LABS: Glucose, Whole Blood 147 mg/dL (60-115)
--- NOTE | 2024-07-24 11:50 | MHC.SL.SWA ---
Speech Pathologist Impression: Mild oral dysphagia d/t absence of dentures Risk of Aspiration Due to: Medically Fragile History of Pneumonia Dysphasia Diet Status: Liquid Consistency and Strategies for Safe Swallow: Liquid Intake Recommendation: Thin Liquid Intake Strategies: Small Sips Solid Food Consistency: Dietary Recommendations: Grnd/Mech Altered (NDD2) Additional Modifications to Solid Foods: Oral Medication Intake: Whole with Puree Please contact the pharmacy regarding appropriate crushable or liquid drug formulations that are available whenever modified delivery is recommended. Compensatory Strategies and Precautions to be Taken for Safe Swallow: Sitting Upright (90 deg) Small Bites and Sips Alternate Liquids/Solids Rate of Ingestion Change Supervision While Eating and Drinking for Safe Swallow: Total Assistance (1:1) Foods to Avoid: Mixed consistencies, overly hard to chew solids. Swallowing Recommended Treatments: Compens. Strategy Educat. Recommendation for Speech: Inpatient Speech Therapy Comment: Pt requested diet downgrade d/t missing dentition, uses dentures at baseline. Diet downgraded from NDD3 to NDD2, anticipate pt will resume tolerating baseline consistencies upon d/c. Frequency/Duration: Daily Date Range for Service Req: Admission Timeline to reassess: PRN Maintenance And Engineering Manager Clinican/Clinical Fellow: No Supervisory Statement: I have reviewed and agree with the student/clinical fellow's documentation: N/A Speech Language Pathologist: Karon Turcios M.S., CCC-FOOD SCIENTIST
--- NOTE | 2024-07-24 13:26 | HO.PM.IMPN ---
Subjective Subjective Date of Service: 07/24/24 Interval History: No acute issues overnight. Mildly confused but easily reoriented Review of Systems Denies chest pain Denies shortness of breath Denies nausea vomiting diarrhea Denies fever chills Physical Exam Vital Signs: Vital Signs: Last Vital Signs Temp 96.8 F 07/24/24 07:16 Pulse 103 H 07/24/24 07:16 Resp 16 07/24/24 07:16 BP 132/86 07/24/24 07:16 Pulse Ox 95 07/24/24 07:16 O2 Del Method Nasal Cannula 07/24/24 07:16 O2 Flow Rate 1 07/24/24 07:16 BMI result Body Mass Index 49.0 Const: Other: Awake alert no acute distress Resp: Other: Clear to auscultation bilaterally no rales rhonchi or wheezes Cardio: Other: No S4; positive S1-S2; no S3 murmurs rubs or gallops GI: Other: Soft nontender nondistended normoactive bowel sounds Extrem: Other: No edema bilaterally Objective Data Active Medications Acetaminophen (Acetaminophen 325 Mg Tablet) 650 mg PO Q6H PRN PRN Reason: Pain, Mild (Pain Scale 1-3), fever or headache Last Admin: 07/24/24 08:05 Dose: 650 mg Documented By: WILLAM Albuterol Sulfate (Albuterol Sulfate 90 Mcg 8 Gm Inhaler) 1 puff INHALE Q4H PRN PRN Reason: Wheezing/SOB Aspirin (Aspirin Enteric Coated 81 Mg Tablet.) 81 mg PO DAILY [facility] Last Admin: 07/24/24 08:04 Dose: 81 mg Documented By: WILLAM Atorvastatin Calcium (Atorvastatin Calcium 80 Mg Tablet) 80 mg PO BEDTIME [facility] Last Admin: 07/23/24 20:21 Dose: 80 mg Documented By: ODRISM Benzonatate (Benzonatate 100 Mg Capsule) 100 mg PO TID PRN PRN Reason: Cough Calcium Carbonate (Calcium Carbonate 750 Mg Tab.Chew) 750 mg PO Q4H PRN PRN Reason: Heartburn Ceftriaxone Sodium (Ceftriaxone Sodium 1 Gm Vial) 1 gm IVPUSH Q24H [facility] Last Admin: 07/23/24 15:58 Dose: 1 gm Documented By: GÓMEZ Clonazepam (Clonazepam 0.5 Mg Tablet) 0.5 mg PO DAILY PRN PRN Reason: Anxiety Duloxetine HCl (Duloxetine Hcl 30 Mg Capsule.Dr) 30 mg PO DAILY [facility] Last Admin: 07/24/24 08:04 Dose: 30 mg Documented By: WILLAM Enoxaparin Sodium (Enoxaparin Sodium 40 Mg/0.4 Ml Syringe) 40 mg SUBCUT Q24H [facility] Last Admin: 07/23/24 20:21 Dose: 40 mg Documented By: ODRISRicky Gabapentin (Gabapentin 600 Mg Tablet) 1,200 mg PO BEDTIME [facility] Last Admin: 07/23/24 20:20 Dose: 1,200 mg Documented By: ODRISRicky Gabapentin (Gabapentin 600 Mg Tablet) 600 mg PO BID@0900,1500 [facility] Last Admin: 07/24/24 08:04 Dose: 600 mg Documented By: WILLAM Glucose (Glucose Gel 15 Gm Gel..Gram.) 15 gm PO Q15M PRN; Protocol PRN Reason: per Hypoglycemia Standing Ord. Doxycycline Hyclate 100 mg/ (Sodium Chloride) 250 mls @ 166.67 mls/hr IV BID [facility] Last Infusion: 07/24/24 09:36 Dose: Infused Documented By: WILLAM Dextrose (D10) 250 mls @ 750 mls/hr IV Q15M PRN; Protocol PRN Reason: per Hypoglycemia Standing Ord. Insulin Human Lispro (Insulin Lispro 100 Unit/Ml 3 Ml Vial) 0 unit SUBCUT QIDACHS [facility]; Protocol Last Admin: 07/24/24 11:37 Dose: Not Given Documented By: WILLAM Non-Admin Reason: No Insulin Coverage Levetiracetam (Levetiracetam 500 Mg Tablet) 500 mg PO BID [facility] Last Admin: 07/24/24 08:04 Dose: 500 mg Documented By: WILLAM Lisinopril (Lisinopril 40 Mg Tablet) 40 mg PO DAILY [facility]; Protocol Last Admin: 07/24/24 08:04 Dose: 40 mg Documented By: WILLAM Loratadine (Loratadine 10 Mg Tablet) 10 mg PO DAILY [facility] Last Admin: 07/24/24 08:05 Dose: 10 mg Documented By: WILLAM Magnesium Hydroxide (Milk Of Magnesia 30 Ml Oral.Susp) 30 ml PO DAILY PRN PRN Reason: Constipation Melatonin (Melatonin 3 Mg Tablet) 6 mg PO BEDTIME PRN PRN Reason: Insomnia Metformin HCl (Metformin Hcl 500 Mg Tablet) 500 mg PO BID [facility] Multivitamins/Vitamin C (Multivitamin Tablet) 1 tab PO DAILY [facility] Last Admin: 07/24/24 08:05 Dose: 1 tab Documented By: WILLAM Omeprazole (Omeprazole 20 Mg Capsule.Dr) 20 mg PO DAILY@1630 [facility] Last Admin: 07/23/24 17:21 Dose: 20 mg Documented By: GÓMEZ Ondansetron HCl (Ondansetron Hcl 4 Mg/2 Ml Vial) 4 mg IVPUSH Q8H PRN PRN Reason: Nausea and Vomiting Oxcarbazepine (Oxcarbazepine 150 Mg Tablet) 150 mg PO BID [facility] Last Admin: 07/24/24 08:05 Dose: 150 mg Documented By: WILLAM Sodium Chloride (0.9 % Sodium Chloride Flush 3 Ml Syringe) 3 ml IVFLUSH QSHIFT [facility] Last Admin: 07/24/24 08:03 Dose: 3 ml Documented By: WILLAM Verapamil HCl (Verapamil Hcl Sr 180 Mg Tablet.Er) 360 mg PO BEDTIME [facility]; Protocol Last Admin: 07/23/24 20:20 Dose: 360 mg Documented By: ALLYRISM Labs 07/24/24 10:06 07/24/24 10:06 Labs: Laboratory Results - last 24 hr 07/23/24 07/23/24 07/24/24 16:22 20:05 07:29 MCV MCH MCHC RDW Plt Count MPV Immature Gran % (Auto) Neut % (Auto) Lymph % (Auto) [place] % (Auto) Eos % (Auto) Baso % (Auto) Lymph # (Auto) [place] # (Auto) Eos # (Auto) Baso # (Auto) Abs Immat Gran (auto) Absolute Neuts (auto) Absolute Nucleated RBC Nucleated RBC % (auto) Anion Gap Estim Creat Clear Calc Estimated GFR POC Glucose 137 H 103 128 H Fasting Glucose Calcium Total Bilirubin AST ALT Alkaline Phosphatase Total Protein Albumin 07/24/24 07/24/24 10:06 11:08 MCV 85.6 MCH 27.6 MCHC 32.3 RDW 14.2 Plt Count 268 MPV 10.8 Immature Gran % (Auto) 0.5 H Neut % (Auto) 76.0 H Lymph % (Auto) 11.8 L [place] % (Auto) 10.1 Eos % (Auto) 1.3 Baso % (Auto) 0.3 Lymph # (Auto) 1.2 [place] # (Auto) 1.0 Eos # (Auto) 0.1 Baso # (Auto) 0.0 Abs Immat Gran (auto) 0.05 H Absolute Neuts (auto) 7.5 Absolute Nucleated RBC 0.000 Nucleated RBC % (auto) 0.0 Anion Gap 13 Estim Creat Clear Calc 72.6 Estimated GFR > 60 POC Glucose 147 H Fasting Glucose 198 H Calcium 9.8 Total Bilirubin 0.2 AST 24 ALT 14 Alkaline Phosphatase 90 Total Protein 6.8 Albumin 3.2 L Microbiology Microbiology Results: Microbiology 07/22/24 16:17 Blood Culture - Preliminary Blood - Venous No growth after 24 hours. 07/22/24 Unknown Urine Culture - Final Urine Catheterized - Straight Catheter Escherichia coli 07/22/24 16:17 Blood Culture - Preliminary Blood - Venous No growth after 24 hours. 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 1.Sepsis due to acute UTI(sepsis resolved) -ceftriaxone (3) -urine with E coli sensitive to ceftriaxone -switch to orals when cultures negative times 24 hours 2.Right upper lobe consolidation -treat empirically as infiltrate -doxycycline/ceftriaxone (3) -switch to p.o. doxy -titrate O2 as tolerated 3.Kdj-menfnwp-kpschubdk diabetes mellitus -diabetic diet. Appreciate speech input -acceptable control on current therapies -lispro correctional scale -adjust as indicated 4.History of CVA w/left-sided hemiplegia -stable and well compensated -continue outpatient therapies 5.Seizure disorder/Peripheral neuropathy -continue outpatient therapies 6.Hypertension -acceptable control on current therapies -adjust as indicated Lovenox DNR/DNI Requires ongoing hospitalization to treat acute UTI causing sepsis with IV antibiotics Quality Stroke Does the patient have a stroke diagnosis?: No VTE Prior VTE?: No VTE Risk Level:: Medical - moderate - high VTE Device Contraindication: Treatment Not Indicated VTE Drug Contraindication: N/A - Med Ordered
--- NOTE | 2024-07-24 14:20 | MHC.CM.PN ---
EMR REVIEWED, PER HOSPITALIST PT WILL REMAIN INPT FOR ONE MORE NIGHT OF IV ABX, CM ATTEMPTED TO CONTACT NURSE RADHA HOWEVER NUMBER PROVIDED WAS INCORRECT, CM CONTACTED FELIBERTO AT AND SHE HANDED PHONE TO A DIFFERENT NURSE WHO HAPPENED TO BE AT , PER DISCUSSION PHYSICIAN ORDERS WILL BE SIGNED ON DC DATE AND FAXED TO [phone], BLS TRANSPORT SET UP FOR 2PM TOMORROW 07/25, CM WILL CONT TO FOLLOW DC NEEDS.
[2024-07-24] MEDS: Doxycycline Monohydrate 100 MG CAPSULE PO (14:25)
[2024-07-24 15:10] VITALS: BP 122/82; PULSE 90; RESP 18; TEMP 36.6; O2SAT 96
[2024-07-24 16:37] LABS: Glucose, Whole Blood 101 mg/dL (60-115)
[2024-07-24] MEDS: Omeprazole 20 MG CAPSULE.DR PO (17:18)
[2024-07-24] MEDS: cefTRIAXone sodium 1 GM VIAL IVPUSH (17:19)
[2024-07-24 19:13] VITALS: BP 133/63; PULSE 92; RESP 18; TEMP 36.3; O2SAT 96
[2024-07-24] MEDS: VerapamiL HCL SR 180 MG TABLET.ER 360 MG PO (20:10)
[2024-07-24] MEDS: Atorvastatin Calcium 80 MG TABLET PO (20:11)
[2024-07-24] MEDS: Enoxaparin Sodium 40 MG/0.4 ML SYRINGE SUBCUT (20:11)
[2024-07-24 20:21] LABS: Glucose, Whole Blood 107 mg/dL (60-115)
[2024-07-24] MEDS: Benzonatate 100 MG CAPSULE PO (20:53)
[2024-07-24] MEDS: Gabapentin 600 MG TABLET 1200 MG PO (20:53)
[2024-07-25] MEDS: Doxycycline Monohydrate 100 MG CAPSULE PO ×2 (02:04→13:22)
[2024-07-25 03:51] VITALS: BP 134/77; PULSE 84; RESP 18; TEMP 36.4; O2SAT 96
[2024-07-25 05:34] LABS: Basophils Percent Auto 0.2 % (0-2); Eosinophils Absolute Auto 0.4 X10*3/uL (0.0-0.4); Eosinophils Percent Auto 4.4 % (0-4); Hematocrit 37.6 % (37.0-47.0); Hemoglobin 12.3 g/dl (12.0-16.0); Imm Gran Abs Auto 0.04 X10*3/uL (0.00-0.03); Imm Gran Pct Auto 0.4 % (0.0-0.4); Lymphocytes Absolute Auto 1.5 X10*3/uL (1.2-4.9); Lymphocytes Percent Auto 15.9 % (20-40); MANUAL DIFF FLAG SCAN; Mean Corpuscular HGB Conc 32.7 g/dl (31.0-35.0); Mean Corpuscular Hemoglobin 27.8 pg (27.0-33.0); Mean Corpuscular Volume 85.1 fL (80.0-98.0); Mean Platelet Volume 10.5 fL (9.4-12.3); Monocytes Absolute Auto 1.6 X10*3/uL (0.1-1.2); Monocytes Percent Auto 16.3 % (2-11); Neutrophils Percent Auto 62.8 % (45-73); Platelet Count 271 X10*3/uL (160-400); Red Blood Count 4.42 X10*6/uL (4.20-5.50); Red Cell Distribution Width 14.4 % (11.0-16.0); SCAN SMEAR FLAG 1; White Blood Count 9.5 X10*3/uL (4.8-10.8)
[2024-07-25 05:51] LABS: Alanine Aminotransferase 24 U/L (0-31); Albumin Level 3.1 g/dL (3.5-5.0); Alkaline Phosphatase 93 U/L (39-117); Anion Gap 14 (12-20); Aspartate Amino Transferase 31 U/L (5-31); Bilirubin Total 0.2 mg/dL (0.0-1.0); Blood Urea Nitrogen 15 mg/dL (9-16); Calcium 9.9 mg/dL (8.4-10.2); Carbon Dioxide 23 mmol/L (22-29); Chloride 105 mmol/L (96-108); Creatinine Clr Calc Pharmacy 72.6; Estimated Glomerular Filt Rate > 60; Glucose Fasting 115 mg/dL (60-99); Potassium 3.8 mmol/L (3.3-5.1); Sodium 138 mmol/L (135-145); Total Protein 6.7 g/dL (6.5-8.0)
[2024-07-25 06:01] LABS: SLIDE REVIEW VERIFIED
[2024-07-25 07:24] VITALS: BP 120/73; PULSE 94; RESP 18; TEMP 36.1; O2SAT 96
[2024-07-25 07:52] LABS: Glucose, Whole Blood 123 mg/dL (60-115)
[2024-07-25] MEDS: 0.9 % Sodium Chloride Flush 3 ML SYRINGE IVFLUSH (08:34)
[2024-07-25] MEDS: Gabapentin 600 MG TABLET PO ×2 (08:35→14:05)
[2024-07-25] MEDS: DULoxetine HCl 30 MG CAPSULE.DR PO (08:35)
[2024-07-25] MEDS: Aspirin Enteric Coated 81 MG TABLET.DR PO (08:35)
[2024-07-25] MEDS: OXcarbazepine 150 MG TABLET PO (08:35)
[2024-07-25] MEDS: levETIRAcetam 500 MG TABLET PO (08:35)
[2024-07-25] MEDS: Multivitamin TABLET 1 TAB PO (08:35)
[2024-07-25] MEDS: Loratadine 10 MG TABLET PO (08:36)
[2024-07-25] MEDS: lisinopriL 40 MG TABLET PO (08:36)
[2024-07-25] MEDS: Acetaminophen 325 MG TABLET 650 MG PO (08:36)
[2024-07-25 11:27] LABS: Glucose, Whole Blood 128 mg/dL (60-115)
--- NOTE | 2024-07-25 11:29 | PM.DS ---
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 Patient's symptoms started 1 day prior to presentation. She has been having fevers and chills. Also complaining of dysuria and change in color and odor of urine. Patient's temperature at correction was 103 degrees F. Also has been having a cough but that has been ongoing for a while. Admits fatigue and easy fatigability. Admits nausea but no vomiting. Denies palpitations, shortness of breath, chest pain, abdominal pain, changes in urinary or bowel habits. In the emergency department, patient was on found to be septic and urine concerning for UTI. Imaging with right upper lobe consolidation Hospital course the patient was treated for Sepsis due to acute UTI and Right upper lobe pneumonia as seen on Chest X-Ray and urine testing. Blood cultures remained negative but urine culture grew Sensitive E.Coli. Treated with IV Ceftriaxone and Doxycycline with good response as sepsis resolved and she was weaned off Oxygen therapy. She is wheelchair bound and was able to get up with assistance same as baseline. To be discharged to correction with 1 more week of PO Ceftin and Doxycycline. Mucinex twice daily as prescribed in her home medications. To use Incentive spirometry. Continue the rest of her home medications as reported. Seen by CUSTOMER LOGISTICS MANAGER team who recommended NDD2 diet as she was missing her dentures. To evaluated and advance as tolerated at facility. Discharge plan Continue Ceftin and Doxycycline for 1 more week Continue home cough medicaiton as needed Use Incentive spirometry Time Attestation Discharge Coordination Time (in mins): 43 Quality: Safe Use of Opioids Does Pt have an Active Cancer Diagnosis on the Problem List?: No Quality: Stroke Does the patient have a stroke diagnosis?: No Physical Exam Vital Signs: Vital Signs: Last Vital Signs Temp 96.9 F 07/25/24 07:24 Pulse 94 07/25/24 07:24 Resp 18 07/25/24 07:24 BP 120/73 07/25/24 07:24 Pulse Ox 96 07/25/24 07:24 O2 Del Method Nasal Cannula 07/25/24 07:24 O2 Flow Rate 1.0 07/25/24 07:24 BMI result Body Mass Index 49.0 Const: Other: Constitutional : Awake, interactive, morbidly obese, not in distress Neck : Normal inspection, Supple Cardiovascular : RRR, no JVP, no lower extremity edema Respiratory : good bilateral air entry, right upper lobe crackles, no wheezes Gastrointestinal: soft, lax, Normal bowel sounds, Non tender Skin : Warm, Dry Neurological : Alert & oriented x3, No focal deficit DS: Data Data Completed and Pending Labs on day of discharge: Laboratory Results - last 24 hr 07/24/24 07/24/24 07/25/24 16:08 20:10 05:10 WBC 9.5 RBC 4.42 Hgb 12.3 Hct 37.6 MCV 85.1 MCH 27.8 MCHC 32.7 RDW 14.4 Plt Count 271 MPV 10.5 Immature Gran % (Auto) 0.4 Neut % (Auto) 62.8 Lymph % (Auto) 15.9 L [place] % (Auto) 16.3 H Eos % (Auto) 4.4 H Baso % (Auto) 0.2 Lymph # (Auto) 1.5 [place] # (Auto) 1.6 H Eos # (Auto) 0.4 Baso # (Auto) 0.0 Abs Immat Gran (auto) 0.04 H Absolute Neuts (auto) 6.0 Absolute Nucleated RBC 0.000 Nucleated RBC % (auto) 0.0 Smear Tech's Comments VERIFIED Sodium 138 Potassium 3.8 Chloride 105 Carbon Dioxide 23 Anion Gap 14 BUN 15 Creatinine 0.81 Estim Creat Clear Calc 72.6 Estimated GFR > 60 POC Glucose 101 107 Fasting Glucose 115 H Calcium 9.9 Total Bilirubin 0.2 AST 31 ALT 24 Alkaline Phosphatase 93 Total Protein 6.7 Albumin 3.1 L 07/25/24 07/25/24 07:31 11:19 WBC RBC Hgb Hct MCV MCH MCHC RDW Plt Count MPV Immature Gran % (Auto) Neut % (Auto) Lymph % (Auto) [place] % (Auto) Eos % (Auto) Baso % (Auto) Lymph # (Auto) [place] # (Auto) Eos # (Auto) Baso # (Auto) Abs Immat Gran (auto) Absolute Neuts (auto) Absolute Nucleated RBC Nucleated RBC % (auto) Smear Tech's Comments Sodium Potassium Chloride Carbon Dioxide Anion Gap BUN Creatinine Estim Creat Clear Calc Estimated GFR POC Glucose 123 H 128 H Fasting Glucose Calcium Total Bilirubin AST ALT Alkaline Phosphatase Total Protein Albumin Preliminary micro results at discharge 07/22/24 16:17 Blood Culture - Preliminary Blood - Venous No growth after 48 hours. 07/22/24 16:17 Blood Culture - Preliminary Blood - Venous No growth after 48 hours. Imaging Chest x-ray: Radiologist's impression: ITS Impressions Chest X-Ray 07/22/24 12:12 IMPRESSION: Findings as above. Electronically signed by: Willian Valerio MD 07/22/2024 04:22 PM EDT Chest CTA 07/22/24 14:46 IMPRESSION: Exam is limited in evaluation for pulmonary embolism because of image-degrading motion artifact and suboptimal timing of the contrast bolus. No central embolus identified. Large wedge-shaped consolidation in the right upper lobe. The differential diagnosis includes pneumonia, wedge-shaped pulmonary infarct, or pulmonary neoplasm. Continued follow-up to ensure resolution. Spondylosis of the partially visualized spine. Fleischner guidelines were followed. Electronically signed by: Kain Uriostegui MD 07/22/2024 05:55 PM EDT RP Discharge Plan Discharge Anticipated Discharge Date/Time: 07/25/24 11:12 Patient Disposition: Xfer Other Discharge Diagnosis: Pneumonia UTI Referrals: Physician,Unknown J [Physician] - 1 Week Discharge Medications: New doxycycline monohydrate 100 mg Capsule 100 mg PO Q12H Qty: 14 0RF cefuroxime axetil 500 mg tablet 500 mg PO BID Qty: 14 0RF Continued metformin 500 mg tablet 500 mg PO BID gabapentin 600 mg tablet 600 mg PO BID@0900,1500 levetiracetam 500 mg tablet 500 mg PO BID aspirin 81 mg tablet,delayed release (DR/EC) 81 mg PO DAILY acetaminophen 500 mg tablet 1,000 mg PO TID PRN (Reason: Pain) pantoprazole 40 mg tablet,delayed release (DR/EC) 40 mg PO DAILY@1630 polyethylene glycol 3350 17 gram/dose powder 17 g PO DAILY lisinopril 40 mg tablet 40 mg PO DAILY loratadine 10 mg tablet 10 mg PO DAILY rosuvastatin 20 mg tablet 20 mg PO BEDTIME One Daily Multi-Vit w-Mineral 4.5 mg iron tablet 1 tab PO DAILY gabapentin 600 mg tablet 1,200 mg PO BEDTIME verapamil 360 mg capsule,ext rel. pellets 24 hr 360 mg PO BEDTIME zinc oxide 20 % ointment 1 appl topical BID albuterol sulfate 90 mcg/actuation HFA aerosol inhaler 1 inh inhalation Q4H PRN (Reason: Wheezing/SOB) sucralfate 1 gram Tablet 1 g PO BID PRN (Reason: GERD) polyvinyl alcohol 1.4 % Drops 2 drp OPHTHALMIC (EYE) Q8H PRN (Reason: Dry Eye(S)) magnesium hydroxide [Milk of Magnesia] 400 mg/5 mL Suspension 30 ml PO DAILY PRN (Reason: Constipation) calcium carbonate 500 mg calcium (1,250 mg) Tablet 1,000 mg PO Q4H PRN (Reason: Heartburn) hydrocortisone 1 % Cream 1 appl TOPICAL TID PRN (Reason: Itching) hydrocortisone [Preparation H Hydrocortisone] 1 % Cream 1 appl TOPICAL Q4H PRN (Reason: Hemorrhoids) bisacodyl 10 mg Suppository 10 mg CO DAILY PRN (Reason: Constipation) Enema Disposable 19-7 gram/118 mL Enema 118 ml CO DAILY PRN (Reason: Constipation) Debrox 6.5 % Drops 5 drp otic (ears) Q12H PRN (Reason: Ear Cerumen) nystatin 100,000 unit/gram powder 1 appl topical BID PRN (Reason: Fungal Rash) polyethylene glycol 3350 17 gram/dose powder 17 g PO DAILY PRN (Reason: Constipation) guaifenesin 600 mg Tablet Extended Release 12hr 600 mg PO BID PRN (Reason: Cough) oxcarbazepine 150 mg tablet 150 mg PO BID duloxetine 30 mg capsule,delayed release(DR/EC) 30 mg PO DAILY clonazepam 0.5 mg tablet 0.5 mg PO DAILY PRN (Reason: Anxiety) Discharge Orders: Discharge Order (Routine); Ordered 07/25/24 Ordered By: Phil Correia Diet: NDD2 advance as tolerated Activity on Discharge: As tolerated Stand Alone Forms: Patient Portal Discharge page Print Language: Lao Care Plan Goals: You were treated for Sepsis as a result of having pneumonia and urine infection. responded well to antibiotics treatment. Continue Ceftin and Doxycycline for 1 more week Continue home cough medicaiton as needed Use Incentive spirometry Health Concerns: Pneumonia UTI Plan of Treatment: Antibiotics Assessment: as above
--- NOTE | 2024-07-25 12:22 | MHC.SL.SWA ---
Speech Pathologist Impression: Risk of Aspiration Due to: Medically Fragile History of Pneumonia Dysphasia Diet Status: inpatient continue on Ground Mechanical (NDD2) with thin liquids, recommend return to baseline diet upon discharge. Liquid Consistency and Strategies for Safe Swallow: Liquid Intake Recommendation: Thin Liquid Intake Strategies: Small Sips Solid Food Consistency: Dietary Recommendations: Grnd/Mech Altered (NDD2) Additional Modifications to Solid Foods: Assist with tray set up. Oral Medication Intake: Whole with Puree Please contact the pharmacy regarding appropriate crushable or liquid drug formulations that are available whenever modified delivery is recommended. Compensatory Strategies and Precautions to be Taken for Safe Swallow: Sitting Upright (90 deg) Small Bites and Sips Alternate Liquids/Solids Rate of Ingestion Change Supervision While Eating and Drinking for Safe Swallow: Total Assistance (1:1) Foods to Avoid: Mixed consistencies, overly hard to chew solids. Swallowing Recommended Treatments: Compens. Strategy Educat. Recommendation for Speech: Inpatient Speech Therapy Comment: Patient seen at lunch today. Patient at onset was very anxious about potential discharge today (of which he had been informed), and worried that family and the shelter were unaware. After some assurance she calmed down and expressed interest in lunch. Patient was assisted with tray and preparing meal, but then independently fed self the fish and carrots on tray and drank from milk containers with straw. Patient currently on ground diet, food as presented looked closer to chopped advanced, however patient was tolerating well. On discharge, patient should return to softer diet consistencies/baseline diet. Frequency/Duration: Daily Date Range for Service Req: Admission Timeline to reassess: PRN Final Rail Cutter Clinican/Clinical Fellow: No Supervisory Statement: I have reviewed and agree with the student/clinical fellow's documentation: N/A Speech Language Pathologist: Janie Rajan M.A., CCC-DENTAL HYGIENIST MOBILE COORDINATOR
--- NOTE | 2024-07-25 14:06 | MHC.CM.PN ---
Per MD, patient medically cleared for dc back to [facility]. BLS transport previously scheduled for 2pm. alf paperwork completed by MD and faxed back to [facility]. CM LM for daughter/HCP Destiny to inform of dc. Spoke w/ son, Andre, who is aware of dc.
== END 2024-07-25 14:37 | disposition other institution (70) | DRG 871 ==
LOC: HO.ED 17:22 → HO.EDOVER 19:31 → HO.S3 19:59
PROVIDERS: Hospitalist; Physician Assistant Medical; Admitting Provider Student in an Organized Health Care Education/Training Program; Emergency Provider Emergency Medicine Emergency Medical Services; PCP Internal Medicine; Visit Provider Student in an Organized Health Care Education/Training Program
DX: A41.9 Sepsis, unspecified organism (principal); J18.9 Pneumonia, unspecified organism; I69.354 Hemiplegia and hemiparesis following cerebral infarction affecting left non-dominant side; N39.0 Urinary tract infection, site not specified; Z66 Do not resuscitate; E11.42 Type 2 diabetes mellitus with diabetic polyneuropathy; B96.20 Unspecified Escherichia coli [E. coli] as the cause of diseases classified elsewhere; R13.10 Dysphagia, unspecified; G40.909 Epilepsy, unspecified, not intractable, without status epilepticus; E78.2 Mixed hyperlipidemia; Z99.3 Dependence on wheelchair; Z20.822 Contact with and (suspected) exposure to COVID-19; Z79.82 Long term (current) use of aspirin; Z79.84 Long term (current) use of oral hypoglycemic drugs; Z79.899 Other long term (current) drug therapy
CPT/HCPCS: 0241U; 36415; 71045; 71275; 80048; 80053; 81001; 82947; 83605; 83690; 83735; 84484; 85025; 85379; 85610; 85730; 87040; 87086; 87088; 87186; 92610; 93005; 99285; J0696; J1650; J1920; J1953; Q9967

== ENCOUNTER → 2024-07-22 12:11 | Outpatient (BNV) | payer MEDICARE, MEDICAID, SELFPAY | PROVIDERS: Admitting Provider Student in an Organized Health Care Education/Training Program; Emergency Provider Emergency Medicine Emergency Medical Services; Visit Provider Internal Medicine Cardiovascular Disease | DX: R07.9 Chest pain, unspecified (principal) | CPT/HCPCS: 93010 ==

== ENCOUNTER → 2024-07-22 19:22 | Outpatient (BNV) | payer MEDICARE, MEDICAID, SELFPAY | PROVIDERS: Admitting Provider Student in an Organized Health Care Education/Training Program; Emergency Provider Emergency Medicine Emergency Medical Services; Visit Provider Student in an Organized Health Care Education/Training Program | DX: A41.9 Sepsis, unspecified organism (principal); N39.0 Urinary tract infection, site not specified; E11.9 Type 2 diabetes mellitus without complications | CPT/HCPCS: 99223; 99232; 99239 ==

== ENCOUNTER 2024-12-02 10:36 | Emergency (ER) | payer MEDICARE, MEDICAID, SELFPAY ==
--- NOTE | ~2024-12-02 | CT_ITS ---
EXAMINATION: CT PELVIS WITHOUT CONTRAST CLINICAL INFORMATION: Trauma. Question pelvic fracture. COMPARISON: None available. TECHNIQUE: Helical scanning was performed with submillimeter collimation through the pelvis. Sagittal and coronal multiplanar 2-D reconstructions were obtained. This CT examination was performed using dose optimization techniques as appropriate, variously including the following: *Automated exposure control *Adjustment of mA and/or kV according to patient size (this includes techniques or standardized protocols for targeted exams where dose is matched to indication/reason for exam; i.e. extremities or head) *Use of iterative reconstruction technique FINDINGS: PELVIS: Is moderate scattered stool, diverticula and gas seen in colon without distention or diverticulitis. No free fluid or free air seen. The urinary bladder is nondistended. No abnormal size pelvic lymph nodes. No evidence of hernia. OSSEOUS STRUCTURES: There is normal symmetry of bilateral SI joints and hip joints. Mild osteopenia. No visible acute fracture, dislocation or subluxation seen. CT/CT pelvis wo IV con IMPRESSION: Unremarkable CT pelvis. No visible pelvic fracture. Electronically signed by: Cornell Rodriguez MD 12/02/2024 01:29 PM EST
[2024-12-02 11:13] VITALS: BP 133/49; BP 158/65; PULSE 64; PULSE 65; RESP 16; TEMP 36.6; O2SAT 100; O2SAT 96; BMI 46.2
[2024-12-02 11:16] VITALS: RESP 16
--- NOTE | 2024-12-02 11:23 | ED.GENADULT ---
HPI - General Adult General Chief complaint: General Medical Stated complaint: TAILBONE PAIN Time Seen by Provider: 12/02/24 11:16 Source: patient Mode of arrival: EMS Limitations: no limitations History of Present Illness HPI narrative: This is 79 years old female patient with a history of diabetes, history of CVA left hemiplegia that at baseline he is not ambulatory fell from the toilet on Monday she is complaining of tailbone pain. Onset (ago): day(s) (2) Location: pelvis Radiation: non-radiation Severity: moderate Quality: burning Pain Consistency: constant Relieving factors: none Exacerbating factors: none Associated symptoms: denies other symptoms Related Data Home Medications ?Medication ?Instructions ?Recorded ?Confirmed acetaminophen 500 mg tablet 1,000 mg PO TID PRN Pain 07/22/24 07/22/24 albuterol sulfate 90 mcg/actuation 1 inh inhalation Q4H PRN 07/22/24 07/22/24 aerosol inhaler Wheezing/SOB aspirin 81 mg tablet,delayed 81 mg PO DAILY 07/22/24 07/22/24 release bisacodyl 10 mg rectal suppository 10 mg AK DAILY PRN Constipation 07/22/24 07/22/24 calcium carbonate 1,000 mg PO Q4H PRN Heartburn 07/22/24 07/22/24 carbamide peroxide 6.5 % ear drops 5 drp otic (ears) Q12H PRN Ear 07/22/24 07/22/24 (Debrox) Cerumen clonazepam 0.5 mg tablet 0.5 mg PO DAILY PRN Anxiety 07/22/24 07/22/24 duloxetine 30 mg capsule,delayed 30 mg PO DAILY 07/22/24 07/22/24 release gabapentin 600 mg tablet 1,200 mg PO BEDTIME 07/22/24 07/22/24 gabapentin 600 mg tablet 600 mg PO BID@0900,1500 07/22/24 07/22/24 guaifenesin 600 mg tablet, 600 mg PO BID PRN Cough 07/22/24 07/22/24 extended release 12 hr hydrocortisone 1 % topical cream 1 appl topical TID PRN Itching 07/22/24 07/22/24 hydrocortisone 1 % topical cream 1 appl topical Q4H PRN Hemorrhoids 07/22/24 07/22/24 (Preparation H Hydrocortisone) levetiracetam 500 mg tablet 500 mg PO BID 07/22/24 07/22/24 lisinopril 40 mg tablet 40 mg PO DAILY 07/22/24 07/22/24 loratadine 10 mg tablet 10 mg PO DAILY 07/22/24 07/22/24 magnesium hydroxide 400 mg/5 mL 30 ml PO DAILY PRN Constipation 07/22/24 07/22/24 oral suspension (Milk of Magnesia) metformin 500 mg tablet 500 mg PO BID 07/22/24 07/22/24 multivitamin with minerals-ferrous 1 tab PO DAILY 07/22/24 07/22/24 sulfate 4.5 mg iron tablet (One Daily Multivitamins with Minerals) nystatin 100,000 unit/gram topical 1 appl topical BID PRN Fungal Rash 07/22/24 07/22/24 powder oxcarbazepine 150 mg tablet 150 mg PO BID 07/22/24 07/22/24 pantoprazole 40 mg tablet,delayed 40 mg PO DAILY@1630 07/22/24 07/22/24 release polyethylene glycol 3350 17 17 g PO DAILY 07/22/24 07/22/24 gram/dose oral powder polyethylene glycol 3350 17 17 g PO DAILY PRN Constipation 07/22/24 07/22/24 gram/dose oral powder polyvinyl alcohol 1.4 % eye drops 2 drp ophthalmic (eye) Q8H PRN Dry 07/22/24 07/22/24 Eye(S) rosuvastatin 20 mg tablet 20 mg PO BEDTIME 07/22/24 07/22/24 sodium phosphates 19 gram-7 118 ml AK DAILY PRN Constipation 07/22/24 07/22/24 gram/118 mL enema (Enema Disposable) sucralfate 1 gram tablet 1 g PO BID PRN GERD 07/22/24 07/22/24 verapamil 360 mg 24 hr 360 mg PO BEDTIME 07/22/24 07/22/24 capsule,extended release zinc oxide 20 % topical ointment 1 appl topical BID 07/22/24 07/22/24 Previous Rx's ?Medication ?Instructions ?Recorded cefuroxime axetil 500 mg tablet 500 mg PO BID #14 tabs 07/25/24 doxycycline monohydrate 100 mg 100 mg PO Q12H #14 caps 07/25/24 capsule Allergies Allergy/AdvReac Type Severity Reaction Status Date / Time azithromycin [AZITHROMYCIN] Allergy Unknown ITCHY Verified 12/02/24 11:15 acetaminophen [From Vicodin] Allergy Unknown Verified 12/02/24 11:15 amlodipine Allergy Unknown Verified 12/02/24 11:15 ezetimibe [From Zetia] Allergy Unknown Verified 12/02/24 11:15 hydrochlorothiazide Allergy Unknown Verified 12/02/24 11:15 hydrocodone [From Vicodin] Allergy Unknown Verified 12/02/24 11:15 [id number] Reductase Allergy Unknown Verified 12/02/24 11:15 Inhibitor codeine [CODEINE] AdvReac Unknown NAUSEA Verified 12/02/24 11:15 codeine Allergy Unknown facial Uncoded 05/25/24 23:00 flushing/vomiting Review of Systems Constitutional: Constitutional: Reports no additional constitutional complaints Cardiovascular: Cardiovascular: Reports no additional cardiovascular complaints Gastrointestinal: Gastrointestinal: Reports no additional gastrointestinal complaints PMFSH Past Medical History Attestation statement: The following information was validated with the patient. [facility] Narrative: Diabetes, CVA obesity Medical History Peripheral neuropathy Hypertension Dysphagia Gastroesophageal reflux disease Seizure disorder Non-insulin dependent type 2 diabetes mellitus Mood disorder Paralysis CVA (cerebral vascular accident) Social History Social History Household Members: Other Housing: Other Housing Other:: halfway Do you presently have visiting nurse or other home services: No Alcohol intake: never Patient Tobacco Use Status: Never used Tobacco Smoked in Last 30 Days: No Use of substances other than those prescribed or required for medical reasons: No Advance Directives: Yes Advance Directives on File: Yes Advance Directives Date on File: 07/26/24 service: No Physical Exam ED Vital Signs: Vital Signs - 24 hr 12/02/24 11:13 12/02/24 11:16 12/02/24 13:25 Temperature 97.8 F Pulse Rate 64 76 Respiratory Rate 16 16 16 Blood Pressure 133/49 L 169/70 H Pulse Oximetry 96 98 Oxygen Delivery Method Room Air Room Air BMI result Body Mass Index 46.2 No acute distress Const General: cooperative, comfortable and no acute distress Nutritional Appearance: well nourished Orientation/consciousness: patient oriented x3 Limitations: no limitations HENMT Head: Yes normal to inspection General nose exam: Normal external nose present Face and sinus: Yes normal facial exam Mouth: Normal oral and palatal mucosa present Throat: Yes posterior oropharynx normal Neck Neck: Yes normal visual inspection Chest Chest palpation & inspection: normal inspection of the chest Resp Effort & Inspection: normal respiratory effort Auscultation: clear to auscultation bilaterally Cardio Jugular venous distension: no JVD Rate: regular rate Rhythm: regular rhythm GI Inspection: Yes normal to inspection Palpation (GI): Soft to palpation, not firm and nontender Percussion: Yes normal to percussion Auscultation: normal bowel sounds Skin General skin exam: no rashes or lesions noted Lesions: no lesions Rashes: no rashes Neuro Other: At baseline left hemiplegia General: patient oriented x3 Extrem General: Yes normal to inspection and Yes full ROM Course Reevaluation(s) Reevaluation #1: CT scan pelvis showed no evidence of fracture or dislocation anticipate discharge, patient is not ambulatory at baseline Time: 14:24 Medications Administered Discontinued Medications Generic Name Dose Route Start Last Admin Trade Name Freq PRN Reason Stop Dose Admin Acetaminophen 975 mg 12/02/24 11:22 12/02/24 11:57 Acetaminophen 325 Mg Tablet PO 12/02/24 11:23 975 mg ONCE ONE Administration Medical Decision Making Medical Decision Making [facility] Narrative: Patient presented after a fall we will obtain CT of the pelvis to rule out fracture Differential Diagnosis Differential Diagnoses: The differential diagnosis associated with the presentation includes Pelvic fracture hip fracture Admission/Observation Consideration of admission/observation: Escalation of care including admission/observation considered Independent Interpretation I performed an independent interpretation of an: CT Scan Interpretation: No fracture Radiology Impression Discussion of test interpretation with radiology: I have reviewed the radiologist's reading. Radiologist Impression: ue FINDINGS: PELVIS: Is moderate scattered stool, diverticula and gas seen in colon without distention or diverticulitis. No free fluid or free air seen. The urinary bladder is nondistended. No abnormal size pelvic lymph nodes. No evidence of hernia. OSSEOUS STRUCTURES: There is normal symmetry of bilateral SI joints and hip joints. Mild osteopenia. No visible acute fracture, dislocation or subluxation seen. CT/CT pelvis wo IV con IMPRESSION: Unremarkable CT pelvis. No visible pelvic fracture. Electronically signed by: Cornell Rodriguez MD 12/02/2024 01:29 PM [facility] Dictated By: Cornell Rodriguez MD Signed By: <Electronically signed by Cornell Rodriguez MD in OV> 12/02/24 1329 DD/ 1217 TD/TT: 12/02/24 1322 Transcrip Independent Historian Clinical information obtained from an independent historian. History obtained from or confirmed by: Other (senior care staff) Discharge Plan Discharge Clinical Impression: Contusion of buttock Qualifiers: Encounter type: initial encounter Qualified Code(s): S30.0XXA - Contusion of lower back and pelvis, initial encounter Patient Disposition: Home, Self-Care Instructions: Contusion in Adults (ED) Additional Instructions: The CT scan of the pelvis shows no fracture no dislocation. You could take Tylenol as needed for pain Prescriptions: No Action metformin 500 mg tablet 500 mg PO BID gabapentin 600 mg tablet 600 mg PO BID@0900,1500 levetiracetam 500 mg tablet 500 mg PO BID aspirin 81 mg tablet,delayed release (DR/EC) 81 mg PO DAILY acetaminophen 500 mg tablet 1,000 mg PO TID PRN (Reason: Pain) pantoprazole 40 mg tablet,delayed release (DR/EC) 40 mg PO DAILY@1630 polyethylene glycol 3350 17 gram/dose powder 17 g PO DAILY lisinopril 40 mg tablet 40 mg PO DAILY loratadine 10 mg tablet 10 mg PO DAILY rosuvastatin 20 mg tablet 20 mg PO BEDTIME One Daily Multi-Vit w-Mineral 4.5 mg iron tablet 1 tab PO DAILY gabapentin 600 mg tablet 1,200 mg PO BEDTIME verapamil 360 mg capsule,ext rel. pellets 24 hr 360 mg PO BEDTIME zinc oxide 20 % ointment 1 appl topical BID albuterol sulfate 90 mcg/actuation HFA aerosol inhaler 1 inh inhalation Q4H PRN (Reason: Wheezing/SOB) sucralfate 1 gram Tablet 1 g PO BID PRN (Reason: GERD) polyvinyl alcohol 1.4 % Drops 2 drp OPHTHALMIC (EYE) Q8H PRN (Reason: Dry Eye(S)) magnesium hydroxide [Milk of Magnesia] 400 mg/5 mL Suspension 30 ml PO DAILY PRN (Reason: Constipation) calcium carbonate 500 mg calcium (1,250 mg) Tablet 1,000 mg PO Q4H PRN (Reason: Heartburn) hydrocortisone 1 % Cream 1 appl TOPICAL TID PRN (Reason: Itching) hydrocortisone [Preparation H Hydrocortisone] 1 % Cream 1 appl TOPICAL Q4H PRN (Reason: Hemorrhoids) bisacodyl 10 mg Suppository 10 mg AK DAILY PRN (Reason: Constipation) Enema Disposable 19-7 gram/118 mL Enema 118 ml AK DAILY PRN (Reason: Constipation) Debrox 6.5 % Drops 5 drp otic (ears) Q12H PRN (Reason: Ear Cerumen) nystatin 100,000 unit/gram powder 1 appl topical BID PRN (Reason: Fungal Rash) polyethylene glycol 3350 17 gram/dose powder 17 g PO DAILY PRN (Reason: Constipation) guaifenesin 600 mg Tablet Extended Release 12hr 600 mg PO BID PRN (Reason: Cough) oxcarbazepine 150 mg tablet 150 mg PO BID duloxetine 30 mg capsule,delayed release(DR/EC) 30 mg PO DAILY clonazepam 0.5 mg tablet 0.5 mg PO DAILY PRN (Reason: Anxiety) doxycycline monohydrate 100 mg Capsule 100 mg PO Q12H Qty: 14 0RF cefuroxime axetil 500 mg tablet 500 mg PO BID Qty: 14 0RF Print Language: Belarusian
[2024-12-02] MEDS: Acetaminophen 325 MG TABLET 975 MG PO (11:57)
[2024-12-02 13:25] VITALS: BP 169/70; PULSE 76; RESP 16; O2SAT 98
--- NOTE | 2024-12-02 13:26 | PC.NURSE ---
long-term staff at bedside, awaits CT scan results and dispo
--- OUTSIDE RECORDS SUMMARY | 2024-12-02 13:35 | XMS_ITS | Clinical Summary ---
Author Organization [facility] Facility Address [address] [address] Care Team Providers Care Delphi Developer Name Role Phone Unavailable Primary Care Provider Unavailabl e Social History Tobacco Use Types Packs/Day Years Used Date Smoking Tobacco: Never Assessed Comments Unknown Sex and Gender Information Value Date Recorded Sex Assigned at Not on file Legal Sex Female 10:24 AM EDT Gender Identity Not on file Sexual Orientation Not on file Plan of Treatment Health Maintenance Due Date Last Done Comments Pneumococcal Vaccine: 65+ Ye ars (1 of 1 - PCV) 2009 Influenza Vaccine (#1) 2024 Hepatitis B Vaccine Aged Out No longe r eligible based on patient's age to complete this topic Insurance [place]
--- OUTSIDE RECORDS SUMMARY | 2024-12-02 13:35 | XMS_ITS ---
Author Organization [facility] Address [address] [place] [address] Care Team Providers Care Computer Technologist Name Role Phone Awilda Brown Primary Care Provider Pamelava King Mcghee Unavailable [phone] Stephanie AGUIRRE, Awilda Unavailable Unavaila ble Allergies Allergen (clinical drug ingredient) Drug/Non Drug Allergy documented on EMR Reaction Allergy Type Onset Date Status Vicodin Unknown Drug Allergy Active ezetimibe Zetia Unknown Drug Allergy Active amlodipine Amlodipine Unknown Drug Allergy Activ e azithromycin Azithromycin Unknown Drug Allergy A ctive codeine Codeine Unknown Drug Allergy Active hydrochlorothiazide Hydrochlorothiazide Unknown Drug Aller gy Active Substance with 2-ynmolmh-3-methylglutar yl-coenzyme A reductase inhibitor mechanism of action (substance) Statins Unknown Drug Allergy Active REASON FOR VISIT At Risk Footcare, Painful Nail(s) aggravated by shoes and causing difficulty standing/walking, Toe Irritation Medications Medication SIG (Take, Route, Frequency, Duration) Notes Start Date End Date Status Colace 100 MG Orally Once a day Not-Taking Dulcolax Not-Taking DULoxetine HCl 60 MG 1 capsule Orally On ce a day Not-Taking Eye Drops Not-Taking Fluticasone Furoate Not-Taking Acetaminophen Not-Ta maciel Baclofen 5 mg Orally Three times a day Not-Taking Crestor Not-Taking Cymbalta 30 MG Orally Once a day Not-Taking amLODIPine Besylate 10 MG Orally Once a day Not-Taking hydrOXYzine HCl Not- Taking Nystatin Not-Taking Sucralfate Not-Takin g Artificial Tear Not- Taking Hydrocortisone Not-T aking Enema Not-Taking Verapamil HCl ER 240 MG Oral for 12 Active Rosuvastatin Calcium 10 MG Orally Once a day Active Ammonium Lactate 12 % APPLY 1 APPLICATIO N TOPICALLY TWICE DAILY TO DRY AREAS OF THE FEET Active Debrox Not-Taking Gabapentin 600 MG 1 tablet Orally Thre e times a day 1200 Active levETIRAcetam Active Lisinopril 40 mg QD Act juliana Milk of Magnesia Concentrate Active Melatonin Active Calcium Active Furosemide 20 MG Oral for 14 A ctive Polyethylene Glycol 3350 Active Albuterol Sulfate HFA 108 (90 Base) MCG/ACT Inhalation for 30 Activ e Aspir-81 81 MG Orally Activ e Pantoprazole Sodium Active Verapamil HCl Active Acetaminophen Congestion/Pain Active ProAir HFA Active Loratadine Active Ceftin Active Doxycycline Monohyd-Cleanser Active metFORMIN HCl Active GenTeal Severe 0.3 % as directed Ophthalmic Active GenTeal Tears Moderate PF Active Extra Depth Orthopedic Shoes, (1) Pair With (3) Pair Custom Heat Molded Multidensity Innersoles Dx: NIDDM/PVD(E11.51), Hammertoe Foot Deformity(M20.41,M20. 42), Preulcerative Skin Lesion(s)(L85.1) Wear Daily for 365 days 11/05/2024 Active Olopatadine HCl 0.2 % 1 drop into affect ed eye Ophthalmic Once a day Active Osstkcg-Tmrlopkd-Sndmkqcld- HC 1 % 1 application into the lower eyelid of affected eye Ophthalmic every 4 hrs Active ibuprofen 400 mg Q 8 HRS PRN N ot-Taking Lisinopril 40 MG Oral for 30 N ot-Taking Metoprolol Tartrate 50 MG Oral for 12 Not-Taking Plavix 75 MG Orally Not-Zak ing Proctosol HC 2.5 % Rectal Twice a day Not-Taking protonix Not-Taking oxyCODONE HCl 5 MG Orally PRN Not-Taking Losartan Potassium 25 MG Orally Once a day Not-Taking MiraLax 17 grams Orally Once a day Not-Taking Multivitamin Not-Zak ing Fluocinolone Acetonide 0.01 % 1 drop to affected area as needed ear Twice a day Not-Taking hydroCHLOROthiazide 25 MG Orally Once a day Not-Taking Social History Tobacco Use: Social History Observation Description Date Details (start date - stop date) Never Smoker NA - NA Tobacco use other than smoking: Question Answer Notes Are you an other tobacco user? No Tobacco Control (Standard) Question Answer Notes Tobacco use: Nonsmoker Additional Findings: Tobacco non-user Current no nsmoker AUDIT-C (Standard) Question Answer Notes Did you have a drink containing alcohol in the p ast year? No Points 0 Interpretation Negative Problems Problem Type SNOMED Code ICD Code Onset Dates Problem Status W/U Status Risk Notes Problem Acquired hammer toe of right foot (6018684492730 105) Other hammer toe(s) (acquired), right foot (M20.41) Active confirmed Problem Acquired hammer toe of left foot (9358484207732 103) Other hammer toe(s) (acquired), left foot (M20.42) Active confirmed Vital Signs Height 5 ft 3 in in 11/05/2024 Weight 300 lbs 11/05/2024 BMI 53.14 kg/m2 11/05/2024 Blood pressure systolic 140 mm Hg 11/05/19 25 Blood pressure diastolic 70 mm Hg 025 Procedures Procedure Date Ordered Date Performed Result Body Sit e 58523-FULLFDM NAIL, 6 OR MORE 11/05/2024 N/A 55062-MQGU SKIN LESION 11/05/2024 N/A Encounters Encounter Location Date Provider Diagnosis [facility] [place] [address] [place] [address] 11/05/2024 King Tesfaye Type 2 diabetes mellitus with diabetic peripheral angiopathy without gangrene E11.51 ; Tinea unguium B35.1 ; Pain in right toe(s) M79.674 ; Pain in left toe(s) M79.675 ; Other hammer toe(s) (acquired), left foot M20.42 and Other hammer toe(s) (acquired), right foot M20.41 Assessments Encounter Date Diagnosis (ICD Code) Assessment Notes Treatment Notes Treatment Clinical Notes Section Notes 11/05/2024 Type 2 diabetes mellitus with diabetic peripheral angiopathy without gangrene (ICD-10 - E11.51) Q7(A), Q8(2B), Q9(1B,2C) 11/05/2024 Tinea unguium (ICD-10 - B35.1) 11/05/2024 Pain in right toe(s) (ICD-10 - M79.674) 11/05/2024 Pain in left toe(s) (ICD-10 - M79.675) 11/05/2024 Other hammer toe(s) (acquired), left foot (ICD-10 - M20.42) 11/05/2024 Other hammer toe(s) (acquired), right foot (ICD-10 - M20.41) Patient Educated with: DIABETIC FOOT CARE INSTRUCTIONS.p df (DIABETIC FOOT CARE INSTRUCTIONS.p df) Plan Of Treatment Medication Medication Name Sig Start Date Stop Date Notes Extra Depth Orthopedic Shoes , (1) Pair With (3) Pair Custom Heat Molded Multidensity Innersoles Dx: NIDDM/PVD(E11.51), Hammertoe Foot Deformity(M20.41,M20.42), Preulcerative Skin Lesion(s)(L85.1) Wear Daily for 365 days 11/05/2024 Treatment Notes Assessment Notes Other hammer toe(s) (acquired), right fo ot Patient Educated with: DIABETIC FOOT CARE INSTRUCTIONS.pdf (DIABETIC FOOT CARE INSTRUCTIONS.pdf) Pending Test Test Name Order Date [id number]-YTNYCLN NAIL, 6 OR MORE 11/05/2024 00186-TDPB SKIN LESION 11/05/2024 Next Appt Details Follow Up: 3 Months, Reason: Provider Name:King Tesfaye , 02/11/2025 01:00:00 PM, [address] [place] [address], [id number], Procedure Notes * Category Sub-Category Detail Notes Debride Nail 6-10 Nail debridement Due to the cl inical pathology outlined in the exam findings, performance of this nail treatment is medically necessary as its management by an unskilled/untrained nonprofessional would put this patients foot and overall health at risk. Therefore, debridement to affected nail(s), as described in exam ( TA, T1, T2, T3, T4, T5, T6, T7, T8, T9 ), was performed exclusively by the physician of record to reduce/remove overall nail length, girth, thickness, subungual debris, and necrotic tissue, by manual and/or electrical means through the use of a nail nipper and/or dremel-type mash grinder, to a more viable healthy nail plate or bed tissue 6-10 nails in total. Silver nitrate was used for any petechial bleeding as necessary. Definitive antifungal treatment options, both pharmaceutical and surgical, have been reviewed and discussed with the patient. The patient solely prefers the use of intermittent/as needed professional debridement services for their nail condition and understands the need for additional periodic treatments to maintain effectiveness in symptomatic relief - 96470 Keratoma Treatment Parring or Cutting o f Benign Hyperkeratotic Lesion(s) (-55) 1 Lesion - Due to the at risk nature of the patients medical condition as documented in the exam findings, performance of this keratoderma treatment is medically necessary as its management by an unskilled/untrained nonprofessional would put this patients foot and overall health at risk. Therefore, the benign hyperkeratotic lesion, 1 in total, as stated and described in the exam ( SUB MTH (s), 5, Right ), was pared, and/or cut utilizing a sterile 15 blade, tissue nippers, and/or power dremel instrumentation by the physician of record - 14788, Q8 Progress Notes * Sue DE LA VEGADOB: [birth year] (79 yo F)Acc No.[id number]:11/05/2024 Progress Note Patient:?SARASue SHELL Provider:?King Tesfaye DPM :1945???Age:79 Y???Sex:Female D ate:11/05/2024 Address:[address] [place] [address], [facility] Pcp:Awilda Brown Subjective: * Chief Complaints: * ???At Risk FootcarePainful N ail(s) aggravated by shoes and causing difficulty standing/walkingToe Irritation * HPI: ???At Risk footcare:?Pt States Last PCP Visit:?Date?09/19/2024 ???Toe pain:?Location:?B/L feet.?Duration:?several years.?Course:?worse.?Aggravated by:?shoes, any pressure.?Treatments:?change in shoes.? * ROS:?General/Constitutional:?Nausea?denies.?Vomiting?denies.?Hunger Thirst?denies.?Loss appetite?denies.?Chills?denies.?Fatigue?denies.?Fever?denies.?Night Sweats?denies.?Unexplained weight loss?denies.?Unexplained weight gain?denies.?HEENTM:?Dentures?denies.?Dizziness?denies.?Glasses/contacts?denies.?Retinopathy?den ies.?Blurred/double vision?denies.?TMJ?denies.?Discharge/drainage?denies.?Implants?denies.?Sore throat?denies.?Dental implants?denies.?Hard of hearing ?denies.?Difficulty chewing/swallowing/speaking?denies.?Nose bleeds?denies.?Sore mouth?denies.?Respiratory:?On O xygen?denies.?Pneumonia/pleurisy?denies.?Bronchitis?denies.?Emphysema?denies.?Co ughing?denies.?Cough blood?denies.?Shortness of breath?denies.?Wheezing?denies.?Cardiovascular:?Pacemaker?denies.?MVP?denies.?WPW?denies.?CHF?denies.?Heart attack?denies.?Septal defect?denies.?Rapid beat?denies.?Chest pain ?denies.?Atrial Fib.?denies.?Murmur/Palpitations?denies.?Gastrointestinal:?Hemorrhoids?denies.?Stomach/Abdominal pain?denies.?Dark blood stool?denies.?Irritable bowel ?denies.?Constipation?denies.?Diarrhea?denies.?Hematology:?Swelling?admits.?Clots?denies.?Varicose Veins?denies.?Bruising?denies.?Bleeding problem?denies.?Genitourinary:?Blood urine?denies.?Frequent/Painfu/urination/bladder control?denies.?Kidney stones?denies.?Infection (UTI)?denies.?Nephropathy?denies.?sex trans dis (STD)?denies.?Prostate?denies.?Musculoskeletal:?Hammertoes?denies.?Bunions?denies.?Back Pain?denies.?Muscle Cramps/ Resting?denies.?Muscle cramps / walking?denies.?Generalized aches and pains?denies.?Weakness?denies.?Integ.:?Cosby?denies.?Scars?denies.?Corns/calluses?admits.?Ingrown nails?admits.?Painful nails?admits.?Open Sores?denies.?Rashes?denies.?Neurologic:?Difficulty sleeping?denies.?Brain disorder?denies.?Numbness?denies.?Balance t rouble?admits.?Confusion?denies.?Fainting/blackouts?denies.?Tingling?denies.?Bud mors?denies.? * Medical History:? * Surgical History:?hysterecto my 1986cholecystectomy 2005 * Hospitalization/Major Diagno stic Procedure:?[facility] [place]-Chest pain 06/2016[facility] [place]- chest pains - fell, 2 day stay 11/2022[facility] [place]- phunemonia 07/22/24 * Family History:?Mother: unkn own, Heart attack, Poor circulation, diagnosed with Unspecified heart disease.?Father: , prostate cancer.?Spouse: alive.? * Social History:?Tobacco Use:?Tobacco use other than smoking?Are you an other tobacco user??No ?Tobacco Control (Standard)?Tobacco use:?Nonsmoker ?Additional Findings: Tobacco non-user?Current nonsmoker ???Drugs/Alcohol:?Drugs?Have you used drugs other than those for medical reasons in the past 12 months??No ???Miscellaneous:?Caffeine: yes, frequency:, 1-2 cups per day. ?Children: yes. ?Exercise: no. ?Marital status: . 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 ???Drug/Alcohol:?AUDIT-C (Standard)?Did you have a drink containing alcohol in the past year??No ?Points?0 ?Interpretation?Negative * Medications:?TakingOlopatadi ne HCl 0.2 % Solution 1 drop into affected eye Ophthalmic Once a day Cgoypss-Euitlqzx-Myythvlzs-HC 1 % Ointment 1 application into the lower eyelid of affected eye Ophthalmic every 4 hrs GenTeal Severe 0.3 % Gel as directed Ophthalmic GenTeal Tears Moderate PF Ceftin Doxycycline Monohyd-Cleanser metFORMIN HCl Verapamil HCl Acetaminophen Congestion/Pain ProAir HFA Loratadine Pantoprazole Sodium Polyethylene Glycol 3350 Albuterol Sulfate HFA 108 (90 Base) MCG/ACT Aerosol Solution Inhalation Aspir-81 81 MG Tablet Delayed Release Orally Calcium Furosemide 20 MG Tablet Oral Gabapentin 600 MG Tablet 1 tablet Orally Three times a day , Notes to Pharmacist: 1200levETIRAcetam Lisinopril 40 mg QD Milk of Magnesia Concentrate Melatonin Verapamil HCl ER 240 MG Tablet Extended Release Oral Rosuvastatin Calcium 10 MG Tablet Orally Once a day Ammonium Lactate 12 % Cream APPLY 1 APPLICATION TOPICALLY TWICE DAILY TO DRY AREAS OF THE FEET Taking Olopatadine HCl 0.2 % Solution 1 drop into affected eye Ophthalmic Once a day Taking Nabcfjo-Xvidvmbq-Lvxqwdvvx-HC 1 % Ointment 1 application into the lower eyelid of affected eye Ophthalmic every 4 hrs Taking GenTeal Severe 0.3 % Gel as directed Ophthalmic Taking GenTeal Tears Moderate PF Taking Ceftin Taking Doxycycline Monohyd-Cleanser Taking metFORMIN HCl Taking Verapamil HCl Taking Acetaminophen Congestion/Pain Taking ProAir HFA Taking Loratadine Taking Pantoprazole Sodium Taking Polyethylene Glycol 3350 Taking Albuterol Sulfate HFA 108 (90 Base) MCG/ACT Aerosol Solution Inhalation Taking Aspir-81 81 MG Tablet Delayed Release Orally Taking Calcium Taking Furosemide 20 MG Tablet Oral Taking Gabapentin 600 MG Tablet 1 tablet Orally Three times a day , Notes to Pharmacist: 1200Taking levETIRAcetam Taking Lisinopril 40 mg QD Taking Milk of Magnesia Concentrate Taking Melatonin Taking Verapamil HCl ER 240 MG Tablet Extended Release Oral Taking Rosuvastatin Calcium 10 MG Tablet Orally Once a day Taking Ammonium Lactate 12 % Cream APPLY 1 APPLICATION TOPICALLY TWICE DAILY TO DRY AREAS OF THE FEET Not-Taking/PRNDebrox Enema hydrOXYzine HCl Nystatin Sucralfate Artificial Tear Hydrocortisone amLODIPine Besylate 10 MG Tablet Orally Once a day Acetaminophen Baclofen 5 mg Tablet Orally Three times a day Crestor Cymbalta 30 MG Capsule Delayed Release Particles Orally Once a day Colace 100 MG Capsule Orally Once a day Dulcolax DULoxetine HCl 60 MG Capsule Delayed Release Particles 1 capsule Orally Once a day Eye Drops Fluticasone Furoate Fluocinolone Acetonide 0.01 % Oil 1 drop to affected area as needed ear Twice a day hydroCHLOROthiazide 25 MG Tablet Orally Once a day Losartan Potassium 25 MG Tablet Orally Once a day MiraLax 17 grams Powder Orally Once a day Multivitamin Metoprolol Tartrate 50 MG Tablet Oral Plavix 75 MG Tablet Orally Proctosol HC 2.5 % Cream Rectal Twice a day protonix oxyCODONE HCl 5 MG Tablet Orally PRN ibuprofen 400 mg Q 8 HRS PRN Lisinopril 40 MG Tablet Oral Medication List reviewed and reconciled with the patientNot-Taking/PRN Debrox Not-Taking/PRN Enema Not-Taking/PRN hydrOXYzine HCl Not-Taking/PRN Nystatin Not-Taking/PRN Sucralfate Not-Taking/PRN Artificial Tear Not-Taking/PRN Hydrocortisone Not-Taking/PRN amLODIPine Besylate 10 MG Tablet Orally Once a day Not-Taking/PRN Acetaminophen Not-Taking/PRN Baclofen 5 mg Tablet Orally Three times a day Not-Taking/PRN Crestor Not-Taking/PRN Cymbalta 30 MG Capsule Delayed Release Particles Orally Once a day Not-Taking/PRN Colace 100 MG Capsule Orally Once a day Not-Taking/PRN Dulcolax Not-Taking/PRN DULoxetine HCl 60 MG Capsule Delayed Release Particles 1 capsule Orally Once a day Not-Taking/PRN Eye Drops Not-Taking/PRN Fluticasone Furoate Not-Taking/PRN Fluocinolone Acetonide 0.01 % Oil 1 drop to affected area as needed ear Twice a day Not-Taking/PRN hydroCHLOROthiazide 25 MG Tablet Orally Once a day Not-Taking/PRN Losartan Potassium 25 MG Tablet Orally Once a day Not-Taking/PRN MiraLax 17 grams Powder Orally Once a day Not-Taking/PRN Multivitamin Not- Taking/PRN Metoprolol Tartrate 50 MG Tablet Oral Not-Taking/PRN Plavix 75 MG Tablet Orally Not-Taking/PRN Proctosol HC 2.5 % Cream Rectal Twice a day Not-Taking/PRN protonix Not-Taking/PRN oxyCODONE HCl 5 MG Tablet Orally PRN Not-Taking/PRN ibuprofen 400 mg Q 8 HRS PRN Not-Taking/PRN Lisinopril 40 MG Tablet Oral Medication List reviewed and reconciled with the patient * Allergies:?StatinsCodeineAzithromycinAmlodipineVicodinZetiaHydrochlorothiazideye s[Allergies Verified] Objective: * Vitals:?Ht: 5 ft 3 in, Wt:30 0, BMI: 53.14, Shoe size:8.5W, BP:140/70mm Hg, BS:123, Wt-k.08 kg. * ???Past Orders: ???Lab:HEMOGLOBIN A1C (GLYCO HEMOGLOBIN) (Order Date - 09/02/2024) (Collection Date & Time - 10/03/2024 01:24 PM) ? Value Reference Range ?HEMOGLOBIN A1C % (HH) 7.0 * Examination: ???Ophthalmology Referral: ?DIABETES EYE EXAM?Procedure Performed:?Yes ?Date of Exam Performed?07/16/2024 ?Diabetic Retinopathy Screening:?Yes ?Retinal Screening Performed:?Yes ?Findings of Diabetic Eye Exam:?no retinopathy?Vascular: ?DP PULSES (B):? 0/4, B/L.?PT PULSES (B):? 0/4, B/L.?CAPILLARY FILL TIME:? delayed, all digits, B/L.?TROPHIC CONDITION-TEXTURE/ELASTICITY/TURGOR/HAIR GROWTH (B):? decreased, with sparse to absent hair growth, B/L.?TEMPERTURE GRADIENT (C):? decreased, cool to cool, proximal to distal, B/L.?PIGMENTATION:?rubrous, B/L.?EDEMA (C):?3/4 , non-pitting , without aching pain , Leg(s) , Ankle(s) , Foot , B/L.?CLAUDICATION (C):?denies, B/L.?REST PAIN:?denies, B/L.?Nails: ?NAILS are:?Elongated, overgrown, dystrophic, lytic, greater than 3mm thick, discolored and friable with crumbly malodorous subungual debris, with pain on palpation, TA, T1, T2, T3, T4, T5, T6, T7, T8, T9.?Dermatologic: ?SKIN FINDINGS:?Skin exam reveals Keratotic lesion(s) located at, SUB MTH (s), 5, Right.?Neurological: ?SENSORY:?Neurological exam reveals intact sensorium, pain sensation normal, vibration sensation intact, pinprick sensation is normal in the lower extremities, 5.07 monofilament test performed at plantar aspects of 5 varied sites per foot shows sensation, normal, B/L, Pt denies, anesthesia, burning, paresthesia, tingling, B/L.?Orthopedic: ?MUSCLE STRENGTH:?Generalized decrease in strength, B/L.?DIGITAL DEFORMITIES:?Digital contracture, PIPJ, 2-5 B/L, incompl-reducible with WB, or to push-up test, no over, nor underlapping.?FOOTWEAR:?worn, non-supportive.?General Examination: ?GENERAL APPEARANCE:?Reveals a pleasant, alert, well nourished, well- developed, well hydrated individual, who demonstrates proper attention to hygiene/body habitus, and is in no acute distress, Pt serves as own historian for office visit today.?ORIENTED:?person, place, and time.?FOOT EXAM:?Lower Extremity Neurological Exam performed:?Yes ?Visual exam of foot performed:?Yes ?Date?11/05/2024 ?Footwear Evaluation?Footwear Evaluation performed:?Yes??? Assessment: * Assessment: 1.?Type 2 diabetes mellitus with diabetic peripheral angiopathy without gangrene - E11.51???Notes :Q7(A), Q8(2B), Q9(1B,2C)???2.?Tinea unguium - B35.1???3.?Pain in right toe(s) - M79.674???4.?Pain in left toe(s) - M79.675???5.?Other hammer toe(s) (acquired), left foot - M20.42???Specify :Chronic problem, Worse (4),Rx Management (4)???6.?Other hammer toe(s) (acquired), right foot - M20.41 (Primary)???Specify :Chronic problem, Worse (4),Rx Management (4)??? Plan: * Treatment: 2.?Type 2 diabetes mellitus with diabetic peripheral angiopathy without gangrene?Procedure: 51572-NZJG SKIN LESION 3.?Tinea unguium?Procedure: [id number]-[id number] NAIL, 6 OR MORE * Procedures:?Debride Nail 6-10:?Nail debridement?Due to the clinical pathology outlined in the exam findings, performance of this nail treatment is medically necessary as its management by an unskilled/untrained nonprofessional would put this patients foot and overall health at risk. Therefore, debridement to affected nail(s), as described in exam (?TA, T1, T2, T3, T4, T5, T6, T7, T8, T9?), was performed exclusively by the physician of record to reduce/remove overall nail length, girth, thickness, subungual debris, and necrotic tissue, by manual and/or electrical means through the use of a nail nipper and/or dremel-type mash grinder, to a more viable healthy nail plate or bed tissue 6- 10 nails in total. Silver nitrate was used for any petechial bleeding as necessary. Definitive antifungal treatment options, both pharmaceutical and surgical, have been reviewed and discussed with the patient. The patient solely prefers the use of intermittent/as needed professional debridement services for their nail condition and understands the need for additional periodic treatments to maintain effectiveness in symptomatic relief - 00019.?Keratoma Treatment:?Parring or Cutting of Benign Hyperkeratotic Lesion(s)?(-55) 1 Lesion - Due to the at risk nature of the patients medical condition as documented in the exam findings, performance of this keratoderma treatment is medically necessary as its management by an unskilled/untrained nonprofessional would put this patients foot and overall health at risk. Therefore, the benign hyperkeratotic lesion, 1 in total, as stated and described in the exam (?SUB MTH (s),?5,?Right?), was pared, and/or cut utilizing a sterile 15 blade, tissue nippers, and/or power dremel instrumentation by the physician of record - 58285, Q8.? * Procedure Codes:?98806 DEBRI DE NAIL, 6 OR MORE, Modifiers: XS 94053 TRIM SKIN LESION, Modifiers: XS , Q8 * Preventive Medicine:? ??Counseling:?Discussion:?-14: Office or other outpatient visit for the evaluation and management of an established patient, which required a medically appropriate history and/or examination and MODERATE level of DECISION MAKING for: 1 OR MORE CHRONIC PROBLEM(S) THATS WORSENING, 2 STABLE CHRONIC PROBLEMS, A NEWLY DIAGNOSED PROBLEM WITH UNCERTAIN PROGNOSIS, AN ACUTE COMPLICATED INJURY WITH MULTIPLE TREATMENT OPTIONS, OR AN ACUTE PROBLEM WITH ACCOMPANYING SYSTEMIC SYMPTOMS, THAT POSE(S) A MODERATE RISK OF MORBIDITY. THIS CONDITION MAY ALSO INCLUDE RX DRUG MANAGEMENT, OR A DECISON FOR MINOR SURGERY. The visit on the day of the encounter encompassed interpreting the data and educating the patient as to the nature of their condition, treatment options available according to their individual PMH, meds, allergies, and overall health/living conditions, as well as any potential risks or complications that may occur from a failure to adhere to, and participate in, the recommended course of therapy. The discussion included a complete verbal, and/or written explanation of the examination results, any x-rays taken, the proposed diagnosis, and outline of the treatment plan. A schedule for future care needs was also explained. The patient verbalized an understanding of the instructions at this time and agreed to be an active participant in their treatment. If the patient should think of any questions or concerns after the visit, I have encouraged the patient to call the office.?Digital Surgery:?Digital surgery was discussed with the patient, We elected to try conservative treatment at the present time, due to the patients medical history and increased asssociated post-operative risks.?Digital Treatment:?HT- I explained to the patient the possible etiologies of Hammertoes, including genetics/foot type/shoegear/activity level/exercise routine and the risks/benefits of all the different treatment options for their pain including: No treatment at all, Rest, Ice, New/supportive/wider/deeper Shoegear, Digital Padding/Strapping/Taping/Bracing/Gel protective sleeves, Foot/Ankle AFO Bracing, Stretching exercises, Deep Tissue Massage, Arch support/shoe inserts with splay metatarsal padding, and Custom orthoses. I insisted that any digital devices be removed daily and not worn overnight for safety. The patient is to carefully examine the toes daily for any skin irritation while using any splinting or padding device. The advantages and disadvantages of each option were discussed and the patients questions re: shoegear, padding, custom vs prefabricated inserts, activity level, and consistency in home treatment regimens for optimal success were answered to their verbally confirmed satisfaction.?Shoe Gear Counseling:?SHOE Rx - The patient was counseled in great detail on their muscoloskeletal foot and toe deformities which coincided with the dermatological presentations visualized on exam. We discussed how their deformities put the integrity of their feet at risk for potential pedal complications which makes the accomidative diabetic shoes and cutomizable inserts medically necessary. We discussed the different shoe and insert treatment types and options, as well as the important advantages for adhering to regularly wearing these accomidative devices daily. The patient was made aware of the fact that a failure to abide by these recommedations may be deleterious to their foot health as they are able to prevent many pedal complications such as skin irritation, skin ulceration, infection, and even loss of toe/foot/leg/or life. Time was also spent with the patient dispensing and discussing proper diabetic footcare techniques including daily skin moisturization, daily foot inspection for any interruption in skin integrity including open lesions, or sign of infection such as redness/malodor/drainage/swelling. Also discussed and recommended were procedures regarding daily shoe inspection for the presence of internal foreign bodies as well as any visualized irregular shoe or insert wear. Patient questions re: shoes, inserts, and self foot inspections were answered to their satisfaction as the patient verbally confirmed a full understanding of the above information. A Rx for Extra Depth Orthopedic Shoes with 3 pair of custom heat-molded inserts was dispensed.? ??Screening/Special Tests:?Fall Risk?Screening:?No falls in the past year ?FALLS: Screening for Future Fall Risk?Have you had any falls with injury in the past year??No * Follow Up:?3 Months * Images: * Sign off status: Completed true * Provider:?King Tesfaye DPM Date:?2024 Generated for Eli almonte/Prateek/Alf on:?12/02/2024 01:34 PM EST History and Physical Notes * HPI (History of Present Illness) Category Sub-Category Detail Notes Category Not es Toe pain Location: B/L feet Duration: several years Course: worse Aggravated by: shoes, any pressure Treatments: change in shoes At Risk footcare Pt States Last PCP Visit: Date: 4 Examination Category Sub-Category Detail Notes Category Not es Neurological SENSORY: Neurological exa m reveals intact sensorium, pain sensation normal, vibration sensation intact, pinprick sensation is normal in the lower extremities, 5.07 monofilament test performed at plantar aspects of 5 varied sites per foot shows sensation, normal, B/L, Pt denies, anesthesia, burning, paresthesia, tingling, B/L Dermatologic SKIN FINDINGS: Skin exam reveal s Keratotic lesion(s) located at, SUB MTH (s), 5, Right Orthopedic FOOTWEAR: worn, non-supportive DIGITAL DEFORMITIES: Digital contracture , PIPJ, 2-5 B/L, incompl-reducible with WB, or to push-up test, no over, nor underlapping MUSCLE STRENGTH: Generalized decrease in strength, B/L General Examination GENERAL APPEARANCE: Reveals a pleasant, alert, well nourished, well-developed, well hydrated individual, who demonstrates proper attention to hygiene/body habitus, and is in no acute distress, Pt serves as own historian for office visit today FOOT EXAM: Lower Extremity Neurological Exa m performed:: Yes Visual exam of foot performed:: Yes Date: 11/05/2024 ORIENTED: person, place, and t gavin Footwear Evaluation Footwear Evaluation performe d:: Yes Ophthalmology Referral DIABETES EYE EXAM Procedure Perform ed:: Yes ?Date of Exam Performed: 07/16/2024 Diabetic Retinopathy Screening:: Yes Retinal Screening Performed:: Yes Findings of Diabetic Eye Exam:: no retin opathy Vascular DP PULSES (B): 0/4, B/L PT PULSES (B): 0/4, B/L CAPILLARY FILL TIME: delayed, all digits , B/L TEMPERTURE GRADIENT (C): decreased, cool to cool, proximal to distal, B/L TROPHIC CONDITION-TEXTURE/ELASTICITY/TURGOR/HAIR GROWTH (B): decreased, with sparse to absent hair gr owth, B/L EDEMA (C): 3/4 , non-pitting , without aching pain , Leg(s) , Ankle(s) , Foot , B/L CLAUDICATION (C): denies, B/L REST PAIN: denies, B/L PIGMENTATION: rubrous, B/L Nails NAILS are: Elongated, overg rown, dystrophic, lytic, greater than 3mm thick, discolored and friable with crumbly malodorous subungual debris, with pain on palpation, TA, T1, T2, T3, T4, T5, T6, T7, T8, T9
--- OUTSIDE RECORDS SUMMARY | 2024-12-02 13:35 | XMS_ITS | Patient Health Record ---
Author Organization [facility] Address [address] [place] [address] Care Team Providers Care Internal Audit Consultant Name Role Phone Awilda Brown Primary Care Provider King Camacho Unavailable [phone] Awilda Brown MD Unavailable UnavailSunni Taylor Unavailable [phone] Allergies Allergen (clinical drug ingredient) Drug/Non Drug Allergy documented on EMR Reaction Allergy Type Onset Date Status Vicodin Unknown Drug Allergy Active ezetimibe Zetia Unknown Drug Allergy Active amlodipine Amlodipine Unknown Drug Allergy Activ e azithromycin Azithromycin Unknown Drug Allergy A ctive codeine Codeine Unknown Drug Allergy Active hydrochlorothiazide Hydrochlorothiazide Unknown Drug Aller gy Active Substance with 5-ndzhlgn-7-methylglutar yl-coenzyme A reductase inhibitor mechanism of action (substance) Statins Unknown Drug Allergy Active Results Component Value Reference Range Notes HEMOGLOBIN A1C (GLYCOHEMOGLO BIN) Reviewed date:11/05/2024 01:24:43 PM Interpretation: Performing Lab: Notes/Report: HEMOGLOBIN A1C % (HH) 7.0 Reason For Referral No Information Medications Medication SIG (Take, Route, Frequency, Duration) Notes Start Date End Date Status Ceftin Active Doxycycline Monohyd-Cleanser Active metFORMIN HCl Active Extra Depth Orthopedic Shoes, (1) Pair With (3) Pair Custom Heat Molded Multidensity Innersoles Dx: NIDDM/PVD(E11.51), Hammertoe Foot Deformity(M20.41,M20. 42), Preulcerative Skin Lesion(s)(L85.1) Wear Daily for 365 days 11/05/2024 Active Metoprolol Tartrate 50 MG Oral for 12 Not-Taking Plavix 75 MG Orally Not-Zak ing Proctosol HC 2.5 % Rectal Twice a day Not-Taking protonix Not-Taking Pantoprazole Sodium Active Polyethylene Glycol 3350 Active Albuterol Sulfate HFA 108 (90 Base) MCG/ACT Inhalation for 30 Activ e Aspir-81 81 MG Orally Activ e Verapamil HCl Active oxyCODONE HCl 5 MG Orally PRN Not-Taking Acetaminophen Congestion/Pain Active ibuprofen 400 mg Q 8 HRS PRN N ot-Taking ProAir HFA Active Lisinopril 40 MG Oral for 30 N ot-Taking Loratadine Active Calcium Active Furosemide 20 MG Oral for 14 A ctive Gabapentin 600 MG 1 tablet Orally Thre e times a day 1200 Active Verapamil HCl ER 240 MG Oral for 12 Active Rosuvastatin Calcium 10 MG Orally Once a day Active Ammonium Lactate 12 % APPLY 1 APPLICATIO N TOPICALLY TWICE DAILY TO DRY AREAS OF THE FEET Active Debrox Not-Taking levETIRAcetam Active Lisinopril 40 mg QD Act juliana Milk of Magnesia Concentrate Active Melatonin Active Enema Not-Taking hydrOXYzine HCl Not- Taking Nystatin Not-Taking Acetaminophen Not-Ta maciel Baclofen 5 mg Orally Three times a day Not-Taking Crestor Not-Taking Cymbalta 30 MG Orally Once a day Not-Taking Sucralfate Not-Takin g Artificial Tear Not- Taking Hydrocortisone Not-T aking amLODIPine Besylate 10 MG Orally Once a day Not-Taking Colace 100 MG Orally Once a day Not-Taking Dulcolax Not-Taking DULoxetine HCl 60 MG 1 capsule Orally On ce a day Not-Taking Olopatadine HCl 0.2 % 1 drop into affect ed eye Ophthalmic Once a day Active Losartan Potassium 25 MG Orally Once a day Not-Taking Sltrigw-Klqsvikv-Jqdrwtvna- HC 1 % 1 application into the lower eyelid of affected eye Ophthalmic every 4 hrs Active MiraLax 17 grams Orally Once a day Not-Taking GenTeal Severe 0.3 % as directed Ophthalmic Active Multivitamin Not-Zak ing GenTeal Tears Moderate PF Active Eye Drops Not-Taking Fluticasone Furoate Not-Taking Fluocinolone Acetonide 0.01 % 1 drop to [...] Problem Acquired hammer toe of right foot (0368055128538 105) Other hammer toe(s) (acquired), right foot (M20.41) Active confirmed Problem Type 2 diabetes mellitus with peripheral angiopathy (759379174) Type 2 diabetes mellitus with diabetic peripheral angiopathy without gangrene (E11.51) Active confirmed Q7(A), Q8(2B), Q9(1B,2C) Problem Acquired hammer toe of left foot (8901575476402 103) Other hammer toe(s) (acquired), left foot (M20.42) Active confirmed Vital Signs Blood pressure diastolic 70 mm Hg 11/05/2024 Height 5 ft 3 in in 11/05/2024 Blood pressure systolic 140 mm Hg 11/05/2024 Weight 300 lbs 11/05/2024 BMI 53.14 kg/m2 11/05/2024 Procedures Procedure Date Ordered Date Performed Result Body Sit e 82836-MPDXYFG NAIL, 6 OR MORE 08/06/2024 N/A 33687-GGSYCGP NAIL, OR MORE 11/05/2024 N/A 32870-BSHJ SKIN LESION 11/05/2024 N/A 79519-Qurzcucq Plate 01/19/2024 N/A 80991-LLQIOCV NAIL, 6 OR MORE 01/19/2024 N/A Encounters Encounter Location Date Provider Diagnosis [address] [address] 01/19/2024 King Mera Type 2 diabetes mellitus with diabetic peripheral angiopathy without gangrene E11.51 ; Tinea unguium B35.1 ; Pain in right toe(s) M79.674 ; Pain in left toe(s) M79.675 ; Ingrown nail L60.0 and Xerosis of skin L85.[address] [facility] [address] [address] 08/06/2024 King Tesfaye Type 2 diabetes mellitus with diabetic peripheral angiopathy without gangrene E11.51 ; Tinea unguium B35.1 ; Pain in right toe(s) M79.674 ; Pain in left toe(s) M79.675 and Xerosis of skin L85.[address] [facility] [address] [address] 11/05/2024 King Tesfaye Type 2 diabetes mellitus with diabetic peripheral angiopathy without gangrene E11.51 ; Tinea unguium B35.1 ; Pain in right toe(s) M79.674 ; Pain in left toe(s) M79.675 ; Other hammer toe(s) (acquired), left foot M20.42 and Other hammer toe(s) (acquired), right foot M20.[address] [facility] [address] [address] 01/02/2024 Sunni Guerrero [facility] [address] [address] 01/05/2024 King Tesfaye [facility] [address] [address] 02/15/2024 King Mera [facility] [address] [address] 03/05/2024 iKng Tesfaye [facility] [address] [address] 05/21/2024 King Mera [facility] [address] [address] 06/21/2024 King Tesfaye [facility] [address] [address] 06/27/2024 [facility] Mera [facility] [address] [address] [facility] [address] [address] 10/24/2024 King Tesfaye Assessments Encounter Date Diagnosis (ICD Code) Assessment Notes Treatment Notes Treatment Clinical Notes Section Notes 01/19/2024 Type 2 diabetes mellitus with diabetic peripheral angiopathy without gangrene (ICD-10 - E11.51) 01/19/2024 Tinea unguium (ICD-10 - B35.1) 08/06/2024 Type 2 diabetes mellitus with diabetic peripheral angiopathy without gangrene (ICD-10 - E11.51) 08/06/2024 Tinea unguium (ICD-10 - B35.1) 11/05/2024 Type 2 diabetes mellitus with diabetic peripheral angiopathy without gangrene (ICD-10 - E11.51) Q7(A), Q8(2B), Q9(1B,2C) 08/06/2024 Pain in right toe(s) (ICD-10 - M79.674) 11/05/2024 Tinea unguium (ICD-10 - B35.1) 01/19/2024 Pain in right toe(s) (ICD-10 - M79.674) 08/06/2024 Pain in left toe(s) (ICD-10 - M79.675) 01/19/2024 Pain in left toe(s) (ICD-10 - M79.675) 11/05/2024 Pain in right toe(s) (ICD-10 - M79.674) 11/05/2024 Pain in left toe(s) (ICD-10 - M79.675) 08/06/2024 Xerosis of skin (ICD-10 - L85.3) 01/19/2024 Ingrown nail (ICD-10 - L60.0) 01/19/2024 Xerosis of skin (ICD-10 - L85.3) 11/05/2024 Other hammer toe(s) (acquired), left foot (ICD-10 - M20.42) 11/05/2024 Other hammer toe(s) (acquired), right foot (ICD-10 - M20.41) Patient Educated with: DIABETIC FOOT CARE INSTRUCTIONS.p df (DIABETIC FOOT CARE INSTRUCTIONS.p df) Plan Of Treatment Pending Test Test Name Order Date 84798-ICYMMOG NAIL, 6 OR MORE 10/25/2016 61428-SXKUMAE NAIL, 6 OR MORE 01/19/2024 11128-ANKFUIJ NAIL, 6 OR MORE 08/06/2024 22483-WCGLKWF NAIL, 6 OR MORE 11/05/2024 74632-Utqklndq Plate 01/19/2024 47441-Achvckvq Plate 10/25/2016 54089-SHQQ SKIN LESION 11/05/2024 Next Appt Details Provider Name:King Tesfaye , 02/11/2025 01:00:00 PM, [address] [place], [address], Insurance Providers Payer Name Payer Address Payer Phone Subscriber Number Group Number Insured Name Patient Relationship to Insured Coverage Start Date Coverage End Date Medicare [employer] [address] [place] [address] [id number] Sue Villanueva Self - patient is the insured Medical (General) History Medical History History ICD Code Stroke Hypertension Cholesterol Diabetes mellitus Surgical History Surgery Date(Month/Year) hysterectomy 1986 cholecystectomy 2004 Hospitalization History Reason Date(Month/Year) [facility] [facility] [place] [facility] [place] 07[place]24 [facility]- fell, 2 day stay 11/2022
--- OUTSIDE RECORDS SUMMARY | 2024-12-02 13:35 | XMS_ITS ---
Author Organization [facility] Address [address] [place] [address] Care Team Providers Care Sales Coordinator Name Role Phone Awilda Brown Primary Care Provider King Camacho Unavailable [phone] Awilda Brown MD Unavailable Unavaila ble REASON FOR VISIT refill on rx Medications Medication SIG (Take, Route, Fr equency, Duration) Notes Start Date End Date Status Ammonium Lactate 12 % APPLY 1 APPLICATIO N TOPICALLY TWICE DAILY TO DRY AREAS OF THE FEET Active Encounters Encounter Location Date Provider Diagnosis [address] [address] 10/24/2024 King Tesfaye Plan Of Treatment Medication Medication Name Sig Start Date Stop Date Notes Ammonium Lactate 12 % APPLY 1 APPLICATIO N TOPICALLY TWICE DAILY TO DRY AREAS OF THE FEET Next Appt Details Provider Name:King Tesfaye , 02/11/2025 01:00:00 PM, [address] [place], [address], Progress Notes * Sue DE LA VEGADOB: [birth year] (79 yo F)Acc No.[id number]:10/24/2024 Patient:?Sue DE LA VEGA :1945???Age:79 Y???Sex:Female Address:[address] [place] [address] * Refills? Refill Ammonium Lactate Cream, 12 %, 140 Gram, APPLY 1 APPLICATION TOPICALLY TWICE DAILY TO DRY AREAS OF THE FEET, Refills=0 * true * Date:? Generated for Eli almonte/Prateek/Alf on:?12/02/2024 01:34 PM EST
--- OUTSIDE RECORDS SUMMARY | 2024-12-02 13:35 | XMS_ITS ---
Author Organization [facility] Address [address] [place] [address] Care Team Providers Care Volleyball Coach Name Role Phone Awilda Brown Primary Care Provider King Camacho Unavailable [phone] Awilda Brown MD Unavailable Unavaila ble Allergies Allergen (clinical drug ingredient) Drug/Non Drug Allergy documented on EMR Reaction Allergy Type Onset Date Status Vicodin Unknown Drug Allergy Active ezetimibe Zetia Unknown Drug Allergy Active amlodipine Amlodipine Unknown Drug Allergy Activ e azithromycin Azithromycin Unknown Drug Allergy A ctive codeine Codeine Unknown Drug Allergy Active hydrochlorothiazide Hydrochlorothiazide Unknown Drug Aller gy Active Substance with 4-vnfyjne-9-methylglutar yl-coenzyme A reductase inhibitor mechanism of action (substance) Statins Unknown Drug Allergy Active REASON FOR VISIT At Risk Footcare, Painful Nail(s) aggrevated by shoes and causing difficulty standing/walking, Skinproblem(s) Medications Medication SIG (Take, Route, Frequency, Duration) Notes Start Date End Date Status Milk of Magnesia Concentrate Active Lisinopril 40 mg QD Act juliana Verapamil HCl ER 240 MG Oral for 12 Active Melatonin Active Rosuvastatin Calcium 10 MG Orally Once a day Active Aspir-81 81 MG Orally Activ e Furosemide 20 MG Oral for 14 A ctive Calcium Active levETIRAcetam Active Gabapentin 600 MG 1 tablet Orally Three times a day 1200 Active ProAir HFA Active Pantoprazole Sodium Active Loratadine Active Albuterol Sulfate HFA 108 (90 Base) MCG/ACT Inhalation for 30 Activ e Polyethylene Glycol 3350 Active Doxycycline Monohyd-Cleanser Active Ceftin Active Verapamil HCl Active metFORMIN HCl Active Acetaminophen Congestion/Pain Active GenTeal Tears Moderate PF Active Lisinopril 40 MG Oral for 30 N ot-Taking Olopatadine HCl 0.2 % 1 drop into affect ed eye Ophthalmic Once a day Active GenTeal Severe 0.3 % as directed Ophthalmic Active Lpvwbkq-Zdjdyjwv-Uzyvqgwye-H C 1 % 1 application into the lower eyelid of affected eye Ophthalmic every 4 hrs Active Proctosol HC 2.5 % Rectal Twice a day Not-Taking Plavix 75 MG Orally Not-Zak ing oxyCODONE HCl 5 MG Orally PRN Not-Taking protonix Not-Taking ibuprofen 400 mg Q 8 HRS PRN N ot-Taking MiraLax 17 grams Orally Once a day Not-Taking Losartan Potassium 25 MG Orally Once a day Not-Taking Metoprolol Tartrate 50 MG Oral for 12 Not-Taking Multivitamin Not-Zak ing hydroCHLOROthiazide 25 MG Orally Once a day Not-Taking Dulcolax Not-Taking Eye Drops Not-Taking DULoxetine HCl 60 MG 1 capsule Orally Once a day Not-Taking Fluocinolone Acetonide 0.01 % 1 drop to affected area as needed ear Twice a day Not-Taking Fluticasone Furoate Not-Taking Baclofen 5 mg Orally Three times a day Not-Taking Cymbalta 30 MG Orally Once a day Not-Taking Crestor Not-Taking Colace 100 MG Orally Once a day Not-Taking Acetaminophen Not-Ta maciel Sucralfate Not-Takin g Nystatin Not-Taking Hydrocortisone Not-T aking Artificial Tear Not- Taking amLODIPine Besylate 10 MG Orally Once a day Not-Taking Debrox Not-Taking Ammonium Lactate 12 % APPLY 1 APPLICATIO N TOPICALLY TWICE DAILY. Active hydrOXYzine HCl Not- Taking Enema Not-Taking Social History Tobacco Use: Social History Observation Description Date Details (start date - stop date) Never Smoker NA - NA Tobacco Use/Smoking Question Answer Notes Are you a: nonsmoker Additional Findings: Tobacco Non-User Current no n-smoker Tobacco use other than smoking: Question Answer Notes Are you an other tobacco user? No Vital Signs Height 5 ft 3 in in 08/06/2024 Weight 300 lbs 08/06/2024 BMI 53.14 kg/m2 08/06/2024 Blood pressure systolic 153 mm Hg 08/06/20 24 Blood pressure diastolic 79 mm Hg 11/05/2 024 Procedures Procedure Date Ordered Date Performed Result Body Sit e 52108-NPCFXFT NAIL, 6 OR MORE 08/06/2024 N/A Encounters Encounter Location Date Provider Diagnosis [facility] [address] [address] 08/06/2024 King Tesfaye Type 2 diabetes mellitus with diabetic peripheral angiopathy without gangrene E11.51 ; Tinea unguium B35.1 ; Pain in right toe(s) M79.674 ; Pain in left toe(s) M79.675 and Xerosis of skin L85.3 Assessments Encounter Date Diagnosis (ICD Code) Assessment Notes Treatment Notes Treatment Clinical Notes Section Notes 08/06/2024 Type 2 diabetes mellitus with diabetic peripheral angiopathy without gangrene (ICD-10 - E11.51) 08/06/2024 Tinea unguium (ICD-10 - B35.1) 08/06/2024 Pain in right toe(s) (ICD-10 - M79.674) 08/06/2024 Pain in left toe(s) (ICD-10 - M79.675) 08/06/2024 Xerosis of skin (ICD-10 - L85.3) Plan Of Treatment Pending Test Test Name Order Date [id number]-OPDOMVX NAIL, 6 OR MORE 08/06/2024 Next Appt Details Follow Up: 3 Months, Reason: Provider Name:King Tesfaye , 02/11/2025 01:00:00 PM, [address] [place] [address], [id number], Procedure Notes * Category Sub-Category Detail Notes Debride Nail 6-10 Nail debridement Performance o f this nail treatment by a nonprofessional would put this patients foot and overall health at risk. Therefore, nail debridement was performed extensively to reduce/remove overall nail length, girth, thickness, subungual debris, and necrotic tissue, by manual and/or electrical means through the use of a nail nipper and/or dremel-type grinder and plater, to a more viable healthy nail plate or bed tissue 6-10. Silver nitrate used for any petechial bleeding as necessary. Definitive antifungal treatment options have been reviewed and discussed with the patient. The patient chooses, no pharmaceutical tx - 03176 Progress Notes * Sue DE LA VEGA: [birth year] (79 yo F)Acc No.[id number]:08/06/2024 Progress Note Patient:?Sue DE LA VEGA Provider:?King Tesfaye DPM :1945???Age:78 Y???Sex:Female D ate:08/06/2024 Address:[address] [place], [place] [id number] Pcp:Awilda Brown Subjective: * Chief Complaints: * ???At Risk FootcarePainful N ail(s) aggrevated by shoes and causing difficulty standing/walkingSkin problem(s) * HPI: ???At Risk footcare:?Pt States Last PCP Visit:?Date?05/15/2024 ???Skin problems:?Nature:?dryness , scaling.?Treatments:?medication ( AM Lactin ) , states adherence to recommended treatment application.? * ROS:?General/Constitutional:?Nausea?denies.?Vomiting?denies.?Hunger Thirst?denies.?Loss appetite?denies.?Chills?denies.?Fatigue?denies.?Fever?denies.?Night Sweats?denies.?Unexplained weight loss?denies.?Unexplained [...] Medical History:? * Surgical History:?hysterecto my 1986cholecystectomy 2004 * [place]/Major Diagno stic [place] [place] [place], 2 day stay [place] [place] * Family History:?Mother: unkn own, Heart attack, Poor circulation, diagnosed with Unspecified heart disease.?Father: , prostate cancer.?Spouse: alive.? * Social History:?Tobacco Use:?Tobacco Use/Smoking?Are you a:?nonsmoker ?Additional Findings: Tobacco Non-User?Current non-smoker ?Tobacco use other than smoking?Are you an other tobacco user??No ???Miscellaneous:?Caffeine: yes, frequency:, 1-2 cups per day. ?Children: yes. ?Exercise: no. ?Marital status: . 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 * Medications:?TakingOlopatadi ne HCl 0.2 % Solution 1 drop into affected eye Ophthalmic Once a day Woatyts-Ybkiewjp-Owaitlzhb-HC 1 % Ointment 1 application into the [...] % Cream APPLY 1 APPLICATION TOPICALLY TWICE DAILY. Taking Olopatadine HCl 0.2 % Solution 1 drop into affected eye Ophthalmic Once a day Taking Ifjqhai-Tnthbmbd-Rokntvoey-HC 1 % Ointment 1 application into the [...] % Cream APPLY 1 APPLICATION TOPICALLY TWICE DAILY. Not-Taking/PRNDebrox Enema hydrOXYzine HCl Nystatin Sucralfate Artificial [...] 17 grams Powder Orally Once a day Not- Taking/PRN Multivitamin Not-Taking/PRN Metoprolol Tartrate 50 MG Tablet Oral Not-Taking/PRN [...] Objective: * Vitals:?Ht: 5 ft 3 in, Wt: 3 00, BMI: 53.14, Shoe size: 8.5 3W, BP: 153/79 mm Hg, BS: 102, Wt-k.08 kg. * Examination: ???Vascular: ?DP PULSES (B):? 0/4, B/L.?PT PULSES (B):? [...] crumbly malodorous subungual debris, with pain on palpation , 1-5 B/L.?Dermatologic: ?SKIN FINDINGS:?Skin shows approximately 90-100% LESS, sign(s) of, dryness, scaling, in a stocking fashion, no fissure(s) present, B/L.?Ophthalmology Referral: ?DIABETES EYE EXAM?Procedure Performed:?Yes ?Date of Exam Performed?07/16/2024 ?Findings of Diabetic Eye Exam:?no retinopathy?Neurological: ?SENSORY:?DM/Norm - Neurological exam reveals intact sensorium, pain sensation normal, vibration sensation intact, pinprick sensation is normal in the lower extremities, 5.07 monofilament test performed at plantar aspects of 5 varied sites per foot shows sensation, normal, B/L, Pt denies, anesthesia, burning, paresthesia, tingling, B/L.?Orthopedic: ?MUSCLE STRENGTH:?5/5 all groups in a symmetrical fashion, B/L.?FOOTWEAR:?good condition.?General Examination: ?GENERAL APPEARANCE:?Reveals a pleasant, alert, well nourished, well- developed, well hydrated individual, who demonstrates proper attention to hygiene/body habitus, and is in no acute distress, Pt serves as own historian for office visit today.?ORIENTED:?person, place, and time.?FOOT EXAM:?Lower Extremity Neurological Exam performed:?Yes ?Visual exam of foot performed:?Yes ?Date?08/06/2024 ?Footwear Evaluation?Footwear Evaluation performed:?Yes??? Assessment: * Assessment: 1.?Type 2 diabetes mellitus with diabetic peripheral angiopathy without gangrene - E11.51???2.?Tinea unguium - B35.1???3.?Pain in right toe(s) - M79.674???4.?Pain in left toe(s) - M79.675???5.?Xerosis of skin - L85.3???Specify :Acute problem, Stable,Response to treatment - Improvement??? Plan: * Treatment: * Procedures:?Debride Nail 6-10:?Nail debridement?Performance of this nail treatment by a nonprofessional would put this patients foot and overall health at risk. Therefore, nail debridement was performed extensively to reduce/remove overall nail length, girth, thickness, subungual debris, and necrotic tissue, by manual and/or electrical means through the use of a nail nipper and/or dremel-type grinder and plater, to a more viable healthy nail plate or bed tissue 6-10. Silver nitrate used for any petechial bleeding as necessary. Definitive antifungal treatment options have been reviewed and discussed with the patient. The patient chooses, no pharmaceutical tx - 01051.? * Procedure Codes:?29133 DEBRI DE NAIL, 6 OR MORE * Preventive Medicine:? ??Counseling:?Discussion:?-12: Office or other outpatient visit for the evaluation and management of an established patient, which required a medically appropriate history and/or examination and STRAIGHTFORWARD level of MEDICAL DECISION MAKING, 1 SELF-LIMITED OR MINOR PROBLEM, MINIMAL- NO AMOUNT/COMPLEXITY OF DATA TO BE REVIEWED/ANALYZED, AND MINIMAL RISK OF COMPLICATION/MORBIDITY. The visit on the day of the [...] have encouraged the patient to call the office.?Xerosis:?Given recent successful results to treatment, The patient is to cont the rx cream as directed.? ??Screening/Special Tests:?Fall Risk?Screening:?No falls in the past year ?FALLS: Screening for Future Fall Risk?Have you had any falls with injury in the past year??No * Follow Up:?3 Months * Images: * Sign off status: Completed true * Provider:?King Tesfaye DPM Date:?2023 Generated for Eli almonte/Prateek/Alf on:?12/02/2024 01:34 PM EST History and Physical Notes * HPI (History of Present Illness) Category Sub-Category Detail Notes Category Not es Skin problems Nature: dryness , scaling Treatments: medication ( AM Lact in ) , states adherence to recommended treatment application At Risk footcare Pt States Last PCP Visit: Date: 4 Examination Category Sub-Category Detail Notes Category Not es Neurological SENSORY: DM/Norm - Neurol ogical exam reveals intact sensorium, pain sensation normal, vibration sensation intact, pinprick sensation is normal in the lower extremities, 5.07 monofilament test performed at plantar aspects of 5 varied sites per foot shows sensation, normal, B/L, Pt denies, anesthesia, burning, paresthesia, tingling, B/L Dermatologic SKIN FINDINGS: Skin shows appro ximately 90-100% LESS, sign(s) of, dryness, scaling, in a stocking fashion, no fissure(s) present, B/L Orthopedic FOOTWEAR: good condition MUSCLE STRENGTH: 5/5 all groups in a symmetrical fashion, B/L General Examination GENERAL APPEARANCE: Reveals a pleasant, alert, well nourished, well-developed, well hydrated individual, who demonstrates proper attention to hygiene/body habitus, and is in no acute distress, Pt serves as own historian for office visit today FOOT EXAM: Lower Extremity Neurological Exa m performed:: Yes Visual exam of foot performed:: Yes Date: 08/06/2024 ORIENTED: person, place, and t gavin Footwear Evaluation Footwear Evaluation performe d:: Yes Ophthalmology Referral DIABETES EYE EXAM Procedure Perform ed:: Yes ?Date of Exam Performed: 07/16/2024 Findings of Diabetic Eye Exam:: no retin [...] crumbly malodorous subungual debris, with pain on palpation , 1-5 B/L
[2024-12-02 17:53] VITALS: BP 185/95; PULSE 83; RESP 18; TEMP 36.7; O2SAT 99
[2024-12-02 20:06] VITALS: BP 185/95; PULSE 83; RESP 18; TEMP 36.7; O2SAT 99
== END 2024-12-02 19:15 | disposition home or self-care (01) ==
PROVIDERS: Emergency Provider Emergency Medicine; PCP Internal Medicine
DX: S30.0XXA Contusion of lower back and pelvis, initial encounter (principal); E11.9 Type 2 diabetes mellitus without complications; I10 Essential (primary) hypertension; I69.954 Hemiplegia and hemiparesis following unspecified cerebrovascular disease affecting left non-dominant side; W18.11XA Fall from or off toilet without subsequent striking against object, initial encounter; Y93.9 Activity, unspecified; Y92.9 Unspecified place or not applicable; Y99.9 Unspecified external cause status
CPT/HCPCS: 72192; 99284

== ENCOUNTER → 2024-12-02 11:22 | Outpatient (BNV) | payer MEDICARE, MEDICAID, SELFPAY | PROVIDERS: Emergency Provider Emergency Medicine; PCP Internal Medicine; Visit Provider Radiology Diagnostic Radiology | DX: M53.3 Sacrococcygeal disorders, not elsewhere classified (principal); M85.80 Other specified disorders of bone density and structure, unspecified site | CPT/HCPCS: 72192 ==

== ENCOUNTER 2024-12-10 13:29 | Emergency (ER) | payer MEDICARE, MEDICAID, SELFPAY ==
--- NOTE | ~2024-12-10 | XR_ITS ---
EXAMINATION: XR SHOULDER 2 OR MORE VIEWS LEFT, XR HUMERUS LEFT HISTORY: fall COMPARISON: Comparison is made with the prior examination of the left shoulder dated 02/13/2017. FINDINGS: Four views of the left shoulder and AP and lateral views of the left humerus are submitted. The bones are osteopenic. There is no fracture or dislocation. 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 The soft tissues are unremarkable. XR/XR shoulder LT min 2V IMPRESSION: Osteopenia. No evidence of fracture of the left shoulder humerus. Electronically signed by: Andre Desai MD 12/10/2024 03:20 PM EDT
--- NOTE | ~2024-12-10 | XR_ITS ---
EXAMINATION: XR SHOULDER 2 OR MORE VIEWS LEFT, XR HUMERUS LEFT HISTORY: fall COMPARISON: Comparison is made with the prior examination of the left shoulder dated 02/13/2017. FINDINGS: Four views of the left shoulder and AP and lateral views of the left humerus are submitted. The bones are osteopenic. There is no fracture or dislocation. 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 The soft tissues are unremarkable. XR/XR humerus LT IMPRESSION: Osteopenia. No evidence of fracture of the left shoulder humerus. Electronically signed by: Andre Desai MD 12/10/2024 03:20 PM EDT
--- NOTE | ~2024-12-10 | XR_ITS ---
EXAMINATION: XR HAND 3 OR MORE VIEWS LEFT, XR WRIST 3 OR MORE VIEWS LEFT HISTORY: fall COMPARISON: Comparison is made with the prior examination of the left wrist dated 02/13/2017. FINDINGS: Six views of the left hand and wrist are submitted. The examination is limited by difficulty in patient positioning. The bones are osteopenic. There is a fracture of the distal radial metaphysis with volar angulation of the distal fracture fragment. There is an associated fracture of the ulnar metaphysis. There is no dislocation. There is diffuse joint space narrowing. There is diffuse soft tissue swelling. XR/XR wrist LT min 3V IMPRESSION: Fractures of the distal radial and ulnar metaphyses. Electronically signed by: Andre Desai MD 12/10/2024 03:23 PM EDT
--- NOTE | ~2024-12-10 | XR_ITS ---
EXAMINATION: XR WRIST, LEFT CLINICAL INFORMATION: post reduction COMPARISON: Earlier same day. TECHNIQUE: PA, lateral, and oblique views of the left wrist. FINDINGS: Casting material overlies the wrist obscuring fine bony detail. Previously seen comminuted, angulated, displaced intra-articular distal radial fracture has been reduced. There is now gross anatomical alignment of the fracture fragments. No significant articular step-off. No persistent impaction or angulation. Nondisplaced distal ulnar metaphyseal fracture. XR/XR wrist LT min 3V IMPRESSION: Good reduction of distal radial and volar fractures. Yazdanism of gross anatomic alignment. Electronically signed by: Jimmie Marvin MD 12/10/2024 04:47 PM EDT
--- NOTE | ~2024-12-10 | XR_ITS ---
EXAMINATION: XR ELBOW, LEFT CLINICAL INFORMATION: fall COMPARISON: None available. TECHNIQUE: Solitary oblique view of the left elbow. FINDINGS: No definite acute fracture or dislocation. There are findings suggestive of old healed elbow fractures. There are degenerative changes in the elbow joint. Cannot assess for joint effusion due to obliquity. XR/XR elbow LT min 3V IMPRESSION: Limited exam. Old fractures without definite acute elbow fracture. Cannot assess for joint effusion. Electronically signed by: Jimmie Marvin MD 12/10/2024 03:18 PM EDT
--- NOTE | ~2024-12-10 | XR_ITS ---
EXAMINATION: XR FOREARM, LEFT CLINICAL INFORMATION: fall COMPARISON: None available. TECHNIQUE: AP and lateral views of the left forearm were obtained. FINDINGS: Probable old elbow fractures. Acute comminuted intra-articular fracture of the distal radius, with approximately 25 degrees of volar angulation, 11 mm of impaction, and 7 mm of anterior displacement. Degenerative changes of the wrist and elbow joint. Blunted ulnar styloid. Soft tissue swelling and mild varus deformity. XR/XR forearm LT 2V IMPRESSION: 1. Comminuted intra-articular distal radial fracture with 11 mm of impaction, 7 mm of anterior displacement, and approximately 25 degrees of volar angulation. 2. Probable old fractures of the elbow joint. Electronically signed by: Jimmie Marvin MD 12/10/2024 03:21 PM EDT
--- NOTE | ~2024-12-10 | XR_ITS ---
EXAMINATION: XR HAND 3 OR MORE VIEWS LEFT, XR WRIST 3 OR MORE VIEWS LEFT HISTORY: fall COMPARISON: Comparison is made with the prior examination of the left wrist dated 02/13/2017. FINDINGS: Six views of the left hand and wrist are submitted. The examination is limited by difficulty in patient positioning. The bones are osteopenic. There is a fracture of the distal radial metaphysis with volar angulation of the distal fracture fragment. There is an associated fracture of the ulnar metaphysis. There is no dislocation. There is diffuse joint space narrowing. There is diffuse soft tissue swelling. XR/XR hand LT min 3V IMPRESSION: Fractures of the distal radial and ulnar metaphyses. Electronically signed by: Andre Desai MD 12/10/2024 03:23 PM EDT
--- NOTE | ~2024-12-10 | XR_ITS ---
EXAMINATION: XR HIP 2 OR MORE VIEWS BILATERAL HISTORY: fall hip pain COMPARISON: Comparison is made with the prior examination of the pelvis dated 10/11/2017. FINDINGS: A single AP view of the pelvis and two views of each hip are submitted. The bones are osteopenic. There is no fracture or dislocation. There is mild bilateral joint space narrowing. There is degenerative disc disease of the spine. The soft tissues are unremarkable. XR/XR hip BI w PEL1V IMPRESSION: Osteopenia and mild bilateral joint space narrowing. No evidence of fracture of the pelvis or hips. Electronically signed by: Andre Desai MD 12/10/2024 03:18 PM EDT
--- NOTE | 2024-12-10 13:44 | ED_ITS ---
HPI - Fall General Chief Complaint: Fall Stated Complaint: fall, arm/hip pain, -LOC, -HS, +thinners, hx strok Time Seen by Provider: 12/10/24 13:37 Source: patient and EMS Mode of arrival: EMS Limitations: no limitations History of Present Illness HPI Narrative: 79-year-old female past medical history significant for diabetes history of CVA with left hemiplegia presents emergency department after a fall plenty of arm and hip pain she denies loss of consciousness hitting her head this chest pain cough fever or any other concerns. Patient seen here on the 02 of December approximately 2 days ago for a fall as well. At that time she had hurt her buttocks and found her buttock states she had not fallen her buttocks she was slowly brought down her complaint is in her entire left arm and shoulder MD complaint: fall Related Data Home Medications ?Medication ?Instructions ?Recorded ?Confirmed acetaminophen 500 mg tablet 1,000 mg PO TID PRN Pain 07/22/24 07/22/24 albuterol sulfate 90 mcg/actuation 1 inh inhalation Q4H PRN 07/22/24 07/22/24 aerosol inhaler Wheezing/SOB aspirin 81 mg tablet,delayed 81 mg PO DAILY 07/22/24 07/22/24 release bisacodyl 10 mg rectal suppository 10 mg MA DAILY PRN Constipation 07/22/24 07/22/24 calcium carbonate 1,000 mg PO Q4H PRN Heartburn 07/22/24 07/22/24 carbamide peroxide 6.5 % ear drops 5 drp otic (ears) Q12H PRN Ear 07/22/24 07/22/24 (Debrox) Cerumen clonazepam 0.5 mg tablet 0.5 mg PO DAILY PRN Anxiety 07/22/24 07/22/24 duloxetine 30 mg capsule,delayed 30 mg PO DAILY 07/22/24 07/22/24 release gabapentin 600 mg tablet 1,200 mg PO BEDTIME 07/22/24 07/22/24 gabapentin 600 mg tablet 600 mg PO BID@0900,1500 07/22/24 07/22/24 guaifenesin 600 mg tablet, 600 mg PO BID PRN Cough 07/22/24 07/22/24 extended release 12 hr hydrocortisone 1 % topical cream 1 appl topical TID PRN Itching 07/22/24 07/22/24 hydrocortisone 1 % topical cream 1 appl topical Q4H PRN Hemorrhoids 07/22/24 07/22/24 (Preparation H Hydrocortisone) levetiracetam 500 mg tablet 500 mg PO BID 07/22/24 07/22/24 lisinopril 40 mg tablet 40 mg PO DAILY 07/22/24 07/22/24 loratadine 10 mg tablet 10 mg PO DAILY 07/22/24 07/22/24 magnesium hydroxide 400 mg/5 mL 30 ml PO DAILY PRN Constipation 07/22/24 07/22/24 oral suspension (Milk of Magnesia) metformin 500 mg tablet 500 mg PO BID 07/22/24 07/22/24 multivitamin with minerals-ferrous 1 tab PO DAILY 07/22/24 07/22/24 sulfate 4.5 mg iron tablet (One Daily Multivitamins with Minerals) nystatin 100,000 unit/gram topical 1 appl topical BID PRN Fungal Rash 07/22/24 07/22/24 powder oxcarbazepine 150 mg tablet 150 mg PO BID 07/22/24 07/22/24 pantoprazole 40 mg tablet,delayed 40 mg PO DAILY@1630 07/22/24 07/22/24 release polyethylene glycol 3350 17 17 g PO DAILY 07/22/24 07/22/24 gram/dose oral powder polyethylene glycol 3350 17 17 g PO DAILY PRN Constipation 07/22/24 07/22/24 gram/dose oral powder polyvinyl alcohol 1.4 % eye drops 2 drp ophthalmic (eye) Q8H PRN Dry 07/22/24 07/22/24 Eye(S) rosuvastatin 20 mg tablet 20 mg PO BEDTIME 07/22/24 07/22/24 sodium phosphates 19 gram-7 118 ml MA DAILY PRN Constipation 07/22/24 07/22/24 gram/118 mL enema (Enema Disposable) sucralfate 1 gram tablet 1 g PO BID PRN GERD 07/22/24 07/22/24 verapamil 360 mg 24 hr 360 mg PO BEDTIME 07/22/24 07/22/24 capsule,extended release zinc oxide 20 % topical ointment 1 appl topical BID 07/22/24 07/22/24 Previous Rx's ?Medication ?Instructions ?Recorded cefuroxime axetil 500 mg tablet 500 mg PO BID #14 tabs 07/25/24 doxycycline monohydrate 100 mg 100 mg PO Q12H #14 caps 07/25/24 capsule Allergies Allergy/AdvReac Type Severity Reaction Status Date / Time azithromycin [AZITHROMYCIN] Allergy Unknown ITCHY Verified 12/10/24 13:49 acetaminophen [From Vicodin] Allergy Unknown Verified 12/10/24 13:49 amlodipine Allergy Unknown Verified 12/10/24 13:49 ezetimibe [From Zetia] Allergy Unknown Verified 12/10/24 13:49 hydrochlorothiazide Allergy Unknown Verified 12/10/24 13:49 hydrocodone [From Vicodin] Allergy Unknown Verified 12/10/24 13:49 Gvsnqla-KJI-OhV Reductase Allergy Unknown Verified 12/10/24 13:49 Inhibitor codeine [CODEINE] AdvReac Unknown NAUSEA Verified 12/10/24 13:49 codeine Allergy Unknown facial Uncoded 12/10/24 13:49 flushing/vomiting Review of Systems Review of Systems: Review of systems: General: Patient denies any fever chills recent illness or falls Musculoskeletal: Denies back pain or body aches or other injuries HEENT: denies headache, runny nose, ear pain Respiratory: denies shortness of breath, cough Cardiovascular: no chest pain or palpitations : denies dysuria, frequency Abdomen: no nausea vomiting denies abdominal pain Extremities: no swelling, no pain Skin: no diaphoresis Yes all other systems are reviewed and are negative PMFSH Past Medical History Medical History Peripheral neuropathy Hypertension Dysphagia Gastroesophageal reflux disease Seizure disorder Non-insulin dependent type 2 diabetes mellitus Mood disorder Paralysis CVA (cerebral vascular accident) Social History Social History Household Members: Other Housing: Other Housing Other:: skilled nursing Do you presently have visiting nurse or other home services: No Alcohol intake: never Patient Tobacco Use Status: Never used Tobacco Smoked in Last 30 Days: No Use of substances other than those prescribed or required for medical reasons: No Advance Directives: Yes Advance Directives on File: Yes Advance Directives Date on File: 07/26/24 Do you have a plan to hurt others: No Plan service: No Physical Exam Vital Signs: Vital Signs: Last Vital Signs Temp 98.0 F 12/10/24 15:07 Pulse 76 12/10/24 15:07 Resp 16 12/10/24 15:07 BP 136/49 L 12/10/24 15:07 Pulse Ox 96 12/10/24 15:07 O2 Del Method Room Air 12/10/24 15:07 BMI result Body Mass Index 45.2 General: Well-appearing well-nourished in no signs of distress HEENT: Normocephalic atraumatic Neck: No signs of JVD, no masses no tenderness or lymphadenopathy Cardiovascular: Regular rate and rhythm Respiratory: Clear to auscultation bilaterally Abdomen: Soft nontender no masses Extremities: Normal pedal pulses no signs of edema unable to move left arm or left leg which is baseline for the patient she is tender all over the left arm no pain to palpation of bilateral pelvis Skin: Dry warm no rashes Back: No tenderness full ROM Course Course Course Narrative: X-ray show a distal radius fracture I will use a hematoma block and reduce the wrist put in a splint and likely still safe to go home. Procedures Procedure Narrative Procedure Narrative: Hematoma block performed at the fracture site 10 mL of 1% lidocaine injected af ter blood was visualized. Patient tolerated that procedure well pain was well controlled I was able to reduce the wrist with traction and able to splint the wrist in sugar-tong splint procedure well Medical Decision Making Medical Decision Making MDM Narrative: Patient is little bit limited historian history fracture tender to palpation I will send for x-rays Differential Diagnosis Differential Diagnoses: The differential diagnosis associated with the presentation includes Fall fracture contusion from the shoulder down to fingers or hip Discharge Plan Discharge Clinical Impression: Distal radius fracture, left Patient Disposition: Home, Self-Care Instructions: Arm Fracture in Adults (ED) Additional Instructions: You were seen today after fall. He had x-rays fever entire upper extremity and your hips with no other fracture seen other than a distal radius fracture. You had the radius fracture reduced and splinted in the ER. Please take Tylenol ibuprofen for pain You do need follow up with Orthopedics if you have any other concerns please return to the ER. Prescriptions: No Action metformin 500 mg tablet 500 mg PO BID gabapentin 600 mg tablet 600 mg PO BID@0900,1500 levetiracetam 500 mg tablet 500 mg PO BID aspirin 81 mg tablet,delayed release (DR/EC) 81 mg PO DAILY acetaminophen 500 mg tablet 1,000 mg PO TID PRN (Reason: Pain) pantoprazole 40 mg tablet,delayed release (DR/EC) 40 mg PO DAILY@1630 polyethylene glycol 3350 17 gram/dose powder 17 g PO DAILY lisinopril 40 mg tablet 40 mg PO DAILY loratadine 10 mg tablet 10 mg PO DAILY rosuvastatin 20 mg tablet 20 mg PO BEDTIME One Daily Multi-Vit w-Mineral 4.5 mg iron tablet 1 tab PO DAILY gabapentin 600 mg tablet 1,200 mg PO BEDTIME verapamil 360 mg capsule,ext rel. pellets 24 hr 360 mg PO BEDTIME zinc oxide 20 % ointment 1 appl topical BID albuterol sulfate 90 mcg/actuation HFA aerosol inhaler 1 inh inhalation Q4H PRN (Reason: Wheezing/SOB) sucralfate 1 gram Tablet 1 g PO BID PRN (Reason: GERD) polyvinyl alcohol 1.4 % Drops 2 drp OPHTHALMIC (EYE) Q8H PRN (Reason: Dry Eye(S)) magnesium hydroxide [Milk of Magnesia] 400 mg/5 mL Suspension 30 ml PO DAILY PRN (Reason: Constipation) calcium carbonate 500 mg calcium (1,250 mg) Tablet 1,000 mg PO Q4H PRN (Reason: Heartburn) hydrocortisone 1 % Cream 1 appl TOPICAL TID PRN (Reason: Itching) hydrocortisone [Preparation H Hydrocortisone] 1 % Cream 1 appl TOPICAL Q4H PRN (Reason: Hemorrhoids) bisacodyl 10 mg Suppository 10 mg MA DAILY PRN (Reason: Constipation) Enema Disposable 19-7 gram/118 mL Enema 118 ml MA DAILY PRN (Reason: Constipation) Debrox 6.5 % Drops 5 drp otic (ears) Q12H PRN (Reason: Ear Cerumen) nystatin 100,000 unit/gram powder 1 appl topical BID PRN (Reason: Fungal Rash) polyethylene glycol 3350 17 gram/dose powder 17 g PO DAILY PRN (Reason: Constipation) guaifenesin 600 mg Tablet Extended Release 12hr 600 mg PO BID PRN (Reason: Cough) oxcarbazepine 150 mg tablet 150 mg PO BID duloxetine 30 mg capsule,delayed release(DR/EC) 30 mg PO DAILY clonazepam 0.5 mg tablet 0.5 mg PO DAILY PRN (Reason: Anxiety) doxycycline monohydrate 100 mg Capsule 100 mg PO Q12H Qty: 14 0RF cefuroxime axetil 500 mg tablet 500 mg PO BID Qty: 14 0RF Referrals: Domo Perez MD [Physician] - (Please call follow up you likely need more permanent splint) Print Language: Greek
[2024-12-10 13:46] VITALS: BP 126/47; BP 160/78; PULSE 72; PULSE 77; RESP 16; TEMP 36.5; O2SAT 96; O2SAT 97; BMI 45.2
[2024-12-10 15:07] VITALS: BP 136/49; PULSE 76; RESP 16; TEMP 36.7; O2SAT 96
[2024-12-10] MEDS: Acetaminophen 325 MG TABLET 650 MG PO (16:02)
[2024-12-10] MEDS: Lidocaine HCl 1 % 10 ML VIAL INFILTRATI (16:02)
[2024-12-10 16:19] VITALS: BP 182/52; PULSE 74; RESP 16; TEMP 36.8; O2SAT 95
[2024-12-10 17:37] VITALS: BP 182/52; PULSE 74; RESP 16; TEMP 36.8; O2SAT 95
--- NOTE | 2024-12-10 17:37 | PC.NURSE ---
pt awaiting transport back to [facility]
--- OUTSIDE RECORDS SUMMARY | 2024-12-10 17:45 | XMS_ITS ---
Author Organization [facility] Address [address] [place] [address] Care Team Providers Care New Business Clerk Name Role Phone Awilda Brown Primary Care Provider Pamelava King Mcghee Unavailable [phone] Stephanie AGUIRRE, Awilda Unavailable Unavaila ble Allergies Allergen (clinical drug ingredient) Drug/Non Drug Allergy documented on EMR Reaction Allergy Type Onset Date Status Vicodin Unknown Drug Allergy Active ezetimibe Zetia Unknown Drug Allergy Active amlodipine Amlodipine Unknown Drug Allergy Activ e azithromycin Azithromycin Unknown Drug Allergy A ctive codeine Codeine Unknown Drug Allergy Active hydrochlorothiazide Hydrochlorothiazide Unknown Drug Aller gy Active Substance with 4-cvtzmtk-0-methylglutar yl-coenzyme A reductase inhibitor mechanism of action [...] ed eye Ophthalmic Once a day Active Azmgjuc-Boltjaks-Vagmecuvf- HC 1 % 1 application into the [...] Problem Acquired hammer toe of right foot (8348192671363 105) Other hammer toe(s) (acquired), right foot (M20.41) Active confirmed Problem Acquired hammer toe of left foot (3337042061688 103) Other hammer toe(s) (acquired), left foot (M20.42) Active confirmed Vital Signs Height 5 ft 3 in in 11/05/2024 Weight 300 lbs 11/05/2024 BMI 53.14 kg/m2 11/05/2024 Blood pressure systolic 140 mm Hg 11/05/19 25 Blood pressure diastolic 70 mm Hg 025 Procedures Procedure Date Ordered Date Performed Result Body Sit e 10987-HXYTXXC NAIL, 6 OR MORE 11/05/2024 N/A 42015-YBZI SKIN LESION 11/05/2024 N/A Encounters Encounter Location Date Provider Diagnosis [facility] [address] [place] [address] 11/05/2024 King Tesfaye Type 2 diabetes mellitus [...] INSTRUCTIONS.pdf) Pending Test Test Name Order Date 19193-GJEGYRO NAIL, 6 OR MORE 11/05/2024 28323-NMCS SKIN LESION 11/05/2024 Next Appt Details Follow Up: 3 Months, Reason: Provider Name:King Tesfaye , 02/11/2025 01:00:00 PM, [address] [place] [address], [phone], Procedure Notes * Category Sub-Category Detail [...] of a nail nipper and/or dremel-type grinder watch parts, to a more viable healthy nail plate [...] to maintain effectiveness in symptomatic relief - 54192 Keratoma Treatment Parring or Cutting o f [...] instrumentation by the physician of record - 86951, Q8 Progress Notes * Sue DE LA VEGADOB: [birth year] (79 yo F)Acc No.[id number]:11/05/2024 Progress Note Patient:?SARASue SHELL Provider:?King Tesfaye DPM :1945???Age:79 Y???Sex:Female D ate:11/05/2024 Address:[address] [place] [address], [id number] Pcp:Awilda Brown Subjective: * Chief Complaints: * [...] my 1986cholecystectomy 2005 * Hospitalization/Major Diagno stic Procedure:[place] [place] [place] - [place], 2 day stay 11/2022[facility] [place] 07/22/24 * Family History:?Mother: unkn own, [...] ?Exercise: no. ?Marital status: . 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 ???Drug/Alcohol:?AUDIT-C (Standard)?Did you have a drink containing alcohol in the past year??No ?Points?0 ?Interpretation?Negative * Medications:?TakingOlopatadi ne HCl 0.2 % Solution 1 drop into affected eye Ophthalmic Once a day Eyojlmv-Dinmhmns-Scabiipdm-HC 1 % Ointment 1 application into the [...] affected eye Ophthalmic Once a day Taking Lkxwiko-Whxrifkk-Djhqdxobf-HC 1 % Ointment 1 application into the [...] mellitus with diabetic peripheral angiopathy without gangrene?Procedure: 96689-UIFC SKIN LESION 3.?Tinea unguium?Procedure: 66874-RGQREGL NAIL, 6 OR MORE * Procedures:?Debride Nail [...] of a nail nipper and/or dremel-type grinder watch parts, to a more viable healthy nail plate [...] to maintain effectiveness in symptomatic relief - 03021.?Keratoma Treatment:?Parring or Cutting of Benign Hyperkeratotic Lesion(s)?(-55) [...] instrumentation by the physician of record - 29604, Q8.? * Procedure Codes:?76723 DEBRI DE NAIL, 6 OR MORE, Modifiers: XS 61230 TRIM SKIN LESION, Modifiers: XS , Q8 [...] Tesfaye DPM Date:?2024 Generated for Eli almonte/Prateek/Alf on:?12/10/2024 05:45 PM EDT History and Physical Notes * HPI (History [...]
--- OUTSIDE RECORDS SUMMARY | 2024-12-10 17:46 | XMS_ITS ---
Author Organization [facility] Address [address] [place] [address] Care Team Providers Care Banner Painter Name Role Phone Awilda Brown Primary Care Provider King Camacho Unavailable [phone] Awilda Brown MD Unavailable Unavaila ble Allergies Allergen (clinical drug ingredient) Drug/Non Drug Allergy documented on EMR Reaction Allergy Type Onset Date Status Vicodin Unknown Drug Allergy Active ezetimibe Zetia Unknown Drug Allergy Active amlodipine Amlodipine Unknown Drug Allergy Activ e azithromycin Azithromycin Unknown Drug Allergy A ctive codeine Codeine Unknown Drug Allergy Active hydrochlorothiazide Hydrochlorothiazide Unknown Drug Aller gy Active Substance with 3-pacqlni-9-methylglutar yl-coenzyme A reductase inhibitor mechanism of action [...] Severe 0.3 % as directed Ophthalmic Active Rjulper-Veofouep-Izboiuize-H C 1 % 1 application into the [...] Ordered Date Performed Result Body Sit e 40442-VPZKKCG NAIL, 6 OR MORE 08/06/2024 N/A Encounters Encounter Location Date Provider Diagnosis [facility] [address] [address] 08/06/2024 King Tesfaye Type 2 diabetes mellitus [...] Treatment Pending Test Test Name Order Date 85730-NOHFXNF NAIL, 6 OR MORE 08/06/2024 Next Appt Details Follow Up: 3 Months, Reason: Provider Name:King Tesfaye , 02/11/2025 01:00:00 PM, [address] [place] [address], [phone], Procedure Notes * Category Sub-Category Detail Notes Debride Nail 6-10 Nail debridement Performance o f this nail treatment by a nonprofessional would put this patients foot and overall health at risk. Therefore, nail debridement was performed extensively to reduce/remove overall nail length, girth, thickness, subungual debris, and necrotic tissue, by manual and/or electrical means through the use of a nail nipper and/or dremel-type thread grinder tool, to a more viable healthy nail plate or bed tissue 6-10. Silver nitrate used for any petechial bleeding as necessary. Definitive antifungal treatment options have been reviewed and discussed with the patient. The patient chooses, no pharmaceutical tx - 77268 Progress Notes * Sue DE LA VEGA: [birth year] (79 yo F)Acc No.[id number]:08/06/2024 Progress Note Patient:?Sue DE LA VEGA Provider:?King Tesfaye DPM :1945???Age:78 Y???Sex:Female D ate:08/06/2024 Address:[address] [place], [place] [id number] Pcp:Awilda Brown Subjective: * Chief Complaints: * [...] my 1986cholecystectomy 2004 * Hospitalization/Major Diagno stic Procedure:[place] [place] [facility] [place] [place] chest pains - fell, 2 day stay 11/2022[facility] [place] [facility] [place] 07/22/24 * Family History:?Mother: unkn own, Heart attack, Poor circulation, diagnosed with Unspecified heart disease.?Father: , prostate cancer.?Spouse: alive.? * Social History:?Tobacco Use:?Tobacco Use/Smoking?Are you a:?nonsmoker ?Additional Findings: Tobacco Non-User?Current non-smoker ?Tobacco use other than smoking?Are you an other tobacco user??No ???Miscellaneous:?Caffeine: yes, frequency:, 1-2 cups per day. ?Children: yes. ?Exercise: no. ?Marital status: . 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 * Medications:?TakingOlopatadi ne HCl 0.2 % Solution 1 drop into affected eye Ophthalmic Once a day Zmnvoiq-Swilijax-Lwtwalxkp-HC 1 % Ointment 1 application into the [...] affected eye Ophthalmic Once a day Taking Euityri-Mqgmrwio-Jsyrlmufw-HC 1 % Ointment 1 application into the [...] use of a nail nipper and/or dremel-type thread grinder tool, to a more viable healthy nail plate or bed tissue 6-10. Silver nitrate used for any petechial bleeding as necessary. Definitive antifungal treatment options have been reviewed and discussed with the patient. The patient chooses, no pharmaceutical tx - 22531.? * Procedure Codes:?61710 DEBRI DE NAIL, 6 OR MORE * [...] Tesfaye DPM Date:?2023 Generated for Eli almonte/Prateek/Alf on:?12/10/2024 05:46 PM EDT History and Physical Notes * HPI (History of Present Illness) Category Sub-Category Detail Notes Category Not es Skin problems Nature: dryness , scaling Treatments: medication ( AM Lact in ) , states adherence to recommended treatment application At Risk footcare Pt States Last PCP Visit: Date: Examination Category Sub-Category Detail Notes Category Not [...]
--- OUTSIDE RECORDS SUMMARY | 2024-12-10 17:46 | XMS_ITS | Patient Health Record ---
Author Organization [facility] Address [address] [place] [address] Care Team Providers Care Nurse Chemical Dependency Name Role Phone Awilda Brown Primary Care Provider King Camacho Unavailable [phone] Awilda Brown MD Unavailable UnavailSunni Taylor Unavailable [phone] Allergies Allergen (clinical drug ingredient) Drug/Non Drug Allergy documented on EMR Reaction Allergy Type Onset Date Status Vicodin Unknown Drug Allergy Active ezetimibe Zetia Unknown Drug Allergy Active amlodipine Amlodipine Unknown Drug Allergy Activ e azithromycin Azithromycin Unknown Drug Allergy A ctive codeine Codeine Unknown Drug Allergy Active hydrochlorothiazide Hydrochlorothiazide Unknown Drug Aller gy Active Substance with 5-ouiammv-1-methylglutar yl-coenzyme A reductase inhibitor mechanism of action [...] 25 MG Orally Once a day Not-Taking Spqhrwh-Jrdiqbfg-Kgfzqcayr- HC 1 % 1 application into the [...] Problem Acquired hammer toe of right foot (1585006579921 105) Other hammer toe(s) (acquired), right foot (M20.41) Active confirmed Problem Type 2 diabetes mellitus with peripheral angiopathy (291744979) Type 2 diabetes mellitus with diabetic peripheral angiopathy without gangrene (E11.51) Active confirmed Q7(A), Q8(2B), Q9(1B,2C) Problem Acquired hammer toe of left foot (7785603178163 103) Other hammer toe(s) (acquired), left foot (M20.42) Active confirmed Vital Signs Blood pressure diastolic 70 mm Hg 11/05/2024 Height 5 ft 3 in in 11/05/2024 Blood pressure systolic 140 mm Hg 11/05/2024 Weight 300 lbs 11/05/2024 BMI 53.14 kg/m2 11/05/2024 Procedures Procedure Date Ordered Date Performed Result Body Sit e 65913-NMMABNE NAIL, 6 OR MORE 01/19/2024 N/A 45498-Ewzqmuwl Plate 01/19/2024 N/A 07928-DMEFQIM NAIL, 6 OR MORE 08/06/2024 N/A 26419-WQLJVHM NAIL, 6 OR MORE 11/05/2024 N/A 04128-DJQM SKIN LESION 11/05/2024 N/A Encounters Encounter Location Date Provider Diagnosis [address] [address] 01/19/2024 King Mera Type 2 diabetes mellitus with diabetic peripheral angiopathy without gangrene E11.51 ; Tinea unguium B35.1 ; Pain in right toe(s) M79.674 ; Pain in left toe(s) M79.675 ; Ingrown nail L60.0 and Xerosis of skin L85.[address] [facility] [address] [address] 08/06/2024 King Tesfaye Type 2 diabetes mellitus with diabetic peripheral angiopathy without gangrene E11.51 ; Tinea unguium B35.1 ; Pain in right toe(s) M79.674 ; Pain in left toe(s) M79.675 and Xerosis of skin L85.[address] [facility] [address] [address] 11/05/2024 King Tesfaye Type 2 diabetes mellitus with diabetic peripheral angiopathy without gangrene E11.51 ; Tinea unguium B35.1 ; Pain in right toe(s) M79.674 ; Pain in left toe(s) M79.675 ; Other hammer toe(s) (acquired), left foot M20.42 and Other hammer toe(s) (acquired), right foot M20.41 [facility] [address] [address] 01/02/2024 Sunni Guerrero [facility] [address] [address] 01/05/2024 King Tesfaye [facility] [address] [address] 02/15/2024 King Mera [facility] [address] [address] 03/05/2024 King Tesfaye [facility] [address] [address] 05/21/2024 King Mera [facility] [address] [address] 06/21/2024 King Tesfaye [facility] [address] [address] 06/27/2024 [facility] M[facility] [address] [address] [facility] [address] [address] 10/24/2024 King Tesfaye Assessments Encounter Date Diagnosis [...] Treatment Pending Test Test Name Order Date 11504-MDWSWNX NAIL, 6 OR MORE 10/25/2016 02277-ELVBMHV NAIL, 6 OR MORE 01/19/2024 15485-XWARLGP NAIL, 6 OR MORE 08/06/2024 03010-XDAILYO NAIL, 6 OR MORE 11/05/2024 12767-Jiqynmdt Plate 01/19/2024 92811-Ycwqvbnb Plate 10/25/2016 46182-GGXB SKIN LESION 11/05/2024 Next Appt Details Provider Name:King Tesfaye , 02/11/2025 01:00:00 PM, [address] [place], [address], Insurance Providers Payer Name Payer Address Payer Phone Subscriber Number Group Number Insured Name Patient Relationship to Insured Coverage Start Date Coverage End Date Medicare National [employer] [address] [place] [address] [id number] Sue Villanueva Self - patient is the insured Medical (General) History Medical History History ICD Code Stroke Hypertension Cholesterol Diabetes mellitus Surgical History Surgery Date(Month/Year) hysterectomy 1986 cholecystectomy 2004 Hospitalization History Reason Date(Month/Year) [facility] [place] [facility] [place] [facility] [place] [facility] [place] [facility]- fell, 2 day stay 11/2022
--- OUTSIDE RECORDS SUMMARY | 2024-12-10 17:46 | XMS_ITS | Data Portability ---
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 Staff at [facility] noted yesterday she had erythema in skin folds ?heat rash. She has not had any fevers. Normal appetite. No N/V/D. Pt reports she just moved in to this penitentiary and has run out of her itchy ear cream. She also reports her seasonal allergies are bothering her, she has been sneezing and has post nasal drip but isnt allowed to take any medications that are not prescribed. Denies any cough, CP or SOB. Pt denies any pruritis or pain to rash. Pt is fully vaccinated from Covid 19. Exam: Pt is alert, non toxic appearing L upper flaccid, 5/5 strength BLE & RUE Ears: normal TM with cone of light visualized bilaterally, no erythema or foreign objects visualized R ear. L ear with moderate amt impacted cerumen. Nose: turbinates pink, non boggy, no erythema, no evidence of bleeding or discharge, normal mucous membranes. Throat: moist mucous membranes, no evidence of thrush, normal appearing pharynx, no exudate noted in oropharynx. Frontal and maxillary sinuses non-tender. No lymphadenopathy Normal heart sounds, RRR +2 peripheral edema BLE Lungs are clear, no rales, rhonchi or wheezing SKIN: erythemic moist fungal rash noted bilateral groins/under abdominal folds, and under breasts DDx considered, but not limited to: Fungal rash-Candidiasis under breast/abdominal skin folds most likely as evident by rash, moisture under folds- hot weather this week Cellulitis considered- no warmth or signs of infection Contact dermatitis less likely Impetigo considered less likely given location L otitis media considered- no eyrthema Impacted cerumen L ear- most likely Seasonal allergic rhinitis likely Bronchitis/pneumon ia considered- no SOB, cough or wheezing Work up/Results: Physical Exam Plan/Discussion: Discussed with patient and penitentiary staff- I have prescribed her Certrizine at her request for seasonal allergies- she takes this every Spring. I have prescribed drops to be used as needed for cerumen impaction. I have prescribed Hydrocortisone to be applied topically to outer ears as she has used this in the past per ENT for ear ithcing. I have also prescribed Nystatin powder to be applied under abdominal skin folds, breasts and bilat groin to affected fungal areas. Advised to keep clean and dry. Try to seperate skin folds with Intradry or pillowcases. The patient is advised to make an appt with PCP to discuss ongoing symptoms/ further management only if needed. The patient is also advised to go to the ED immediately for any worsening symptoms- reviewed signs of cellulitis. The patient understood and agreed with this plan. The patient was given discharge instructions and all questions were answered prior to team departure. In order to obtain further information and compare any laboratory results/values, I have accessed patient records on the [employer]. This information was pertinent in my medical decision making today. Proper Personal Protective Equipment (PPE), including gloves, eye protection and masks were donned and doffed appropriately and all equipment cleaned using approved technique with germicidal disposable wipes prior to and after care of this patient [facility]. [email or web address] Not available 03/09/2021 14:10:18 06/07/2021 06/07/2021 Overview/History : 75 y/o F with PMHx sig for conversion disorder, depression, DM w/ peripheral neuropathy, ischemic right MCA stroke with LUE hemiparesis, epilepsy, fibromyaglia, PAF, known to but new to this provider, who presents w/ c/o burning with urination. Patient reports that the skin of her vulva stings when ever it gets wet and that sometimes she is left to sit in her diapers for a couple hours because the staff does not want to put her on a bed clifford. She reports intermittent burning at the urethra with urination but is more concerned about the burning skin. They use nystatin powder under her breasts but nothing in the groin area. She reports symptoms going on for about 1 week. Denies vaginal discharge, itching, new back pain, fever, chills, nausea, vomiting, bladder pain, or h/o recurrent UTIs. Exam: afebrile, iRRR (rate controlled), normotensive, normal resps, O2 sat 98% on RA, non-toxic, chronically ill appearing. GENERAL: well developed, well nourished, morbidly obese, appears stated age, sitting comfortably in wheelchair in no acute distress. RESP: normal I:E, breathing non-labored, no accessory muscle use, clear to auscultation bilaterally, no wheezes, rhonchi, or rales. CARDIO: iRRR, distant S1, S2 due to body habitus, radial pulses 2+ bilaterally. ABD: soft, non-tender, non-distended, normoactive BS x4, no masses or HSM, no suprapubic tenderness or distention. : normal appearing vulva, no discharge, lesions or excoriations, left groin slightly erythematous and weepy, no crusting or purulent drainage, no mass or abscess, vulva and bilateral groin hyperpigmented. NEURO: awake, alert, answering questions appropriately, no slurred speech, slow antalgic gait with walker and left side neglect s/p CVA. DDx considered, but not limited to: UTI - possible but burning with urination affects skin more than urethra and is intermittent pyelo - unlikely, afebrile, no CVAT nephrolithiasis - unlikely, no radiating pain to groin, reports of hematuria or CVAT vaginitis - unlikely, no vaginal discharge interstitial cystitis - unlikely, no bladder pain vulvar dermatitis - possible, no excoriations or weepy/crusty skin candidal intertrigo - likely given DM, urinary incontinence, and constant skin burning worse when wet Work up/Results: patient unable to leave urine specimen while on scene, waited 20 minutes, urine collection kit including sterile cup, wipes, hat, and specimen label left for penitentiary staff with clear verbal and written instructions for collection and specimen drop off to [facility] within 24 hours of collection. Plan/Discussion: -candidal intertrigo -Rx sent for topical clotrimazole -penitentiary staff instructed on andria care, do not let pt sit in wet diapers -will call with urinalysis/culture results when available and prescribe abx if appropriate at that time -f/u with PCP in 3-5 days Thank you for your [facility] with [email or web address]. We cannot always find the exact cause of your symptoms during your initial visit. Please follow up with your primary care provider or specialist to be rechecked or seek medical attention if your symptoms do not go away or get worse. If you develop any new or worsening symptoms and need after hours care, please go to nearest ER and/or call 911. If you have additional concerns or develop a change in your condition between 8am-10pm, please call [employer] at [phone] to help navigate your care. In order to obtain further information and compare any laboratory results/values, I have accessed patient records on the [employer]. This information was pertinent in my medical decision making today. Time On Scene with Patient: 01:19:17 [email or web address] Not available 06/07/2021 17:06:21 Plan of Treatment Reminders Order Date Submit Date Provider Last Modified By Organization Details Last Modified Time Details Appointments None recorded. Lab urinalysis, dipstick 2020 [facility], [address] [place] [address], [id number], 17:43:52 culture, urine 2020 [facility] (Centralized Electronic Ordering - All Locations), Patient Can Go To The Location Of Their Choice, [id number] 07:00:02 unlisted lab - urinalysis w/reflex culture 2020 [facility] (Centralized Electronic Ordering - All Locations), Patient Can Go To The Location Of Their Choice, [address] 22:39:59 Referral None recorded. Procedures None recorded. Surgeries None recorded. Imaging None recorded. Medication Orders clotrimazol e 1 % topical cream 2020 021 [facility], [address] [place], [address], 16:10:58 nystatin 100,000 unit/gram topical powder 2020 021 [facility], [address] [place], [address], 13:40:24 hydrocortis one 1 % topical cream 2020 021 [email or web address], [address] [place], [address], 09:36:32 Claritin 10 mg tablet 2020 021 [facility], [address] [place], [address], 13:39:24 Debrox 6.5 % ear drops 2020 021 [facility], [address] [place], [address], 13:39:27 Patient TargetsNo targets recorded. Patient Instructions Encounter Date Encounter Id Patient Instructions Last Modified By Organization Details Last Modified Time 03/09/2021 [id number] You appear to lott ve a fungal rash. We have prescribed Nystatin powder to be applied under breasts and under abdominal folds. After showering, pay dry, try to seperate skin folds with Intra dry or pillowcases if able. Monitor for increase in redness or open areas. Try to keep dry as this could turn to cellulitis. L ear- has impacted cerumen- apply Debrox as needed for 3-4 days. May repeat if needed. Hydrocortisone 1% topical to apply to external ears for itch Claritin 10mg oral daily for season allergies. Please have PCP renew if needed. Thank you for your visit with [facility] today. We cannot always find the exact cause of your symptoms during your initial visit. Please follow up with your primary care provider or specialist as needed to be rechecked or seek medical attention if your symptoms do not go away or get worse. If you develop any new or worsening symptoms and need after hours care, please go to nearest ER and/or call 911. If you have additional concerns or develop a change in your condition between 8am-10pm, please call [employer] at [phone] to help navigate your care. [email or web address] Not available 03/09/2021 13:35:50 07/13/2021 [id number] You were seen to day for symptoms of UTI. We sent a urine culture to the lab and will prescribe antibiotics if indicated. Please hydrate well, drink plenty of water. Continue with Tylenol scheduled 3 x a day as previously ordered. We will call you with results and prescribe an antibiotic if indicated. We will contact your doctor with results. BASIC INFORMATION Urinary tract infections(UTI) can involve any portion of the urinary tract. The most common presentation is a bladder infection/cystitis, which usually presents with urinary frequency, burning with urination, urgency, foul smelling cloudy urine and occasionally blood. Kidney infections are less frequent, but more serious, and present with fever, flank pain, malaise and sometimes shaking chills. UTI? s are common in women because of the female anatomy, and much less common in males. INSTRUCTIONS Drink plenty of fluid, water is best. Drinking fluids will help to flush the bacteria from your body. Urinate every 2-3 hours Wear cotton underwear and avoid Nylon, Spandex and Lycra which tend to trap moisture and thong underwear which may facilitate UTI? s . Avoid tub baths Avoid using Super Tampons Use only mild unscented soap to wash your genitals, such as Dove or Ivory, avoid heavily scented body washes. If you are sexually active urinate as soon as possible after intercourse. Yogurt and probiotics may help to establish a more healthy genital environment, and aid in prevention. MEDICATIONS 1.Antibiotics: Usually prescribed if you have a UTI, there are many different effective antibiotics available. It is important that you complete the course of antibiotics you are given. You should feel some improvement within 24-48 hours, if you do not it may be that the bacteria causing your infection is resistant to the prescribed medication. If a urine culture is obtained it will usually take at least 3-4 days to get the final result. 2. Anesthetic/Pain relievers: Phenazopyridine (Pyridium, Uribelle, AZO) is an anesthetic excreted in the urine. This medicine will turn your urine BRIGHT ORANGE! This is normal, and may stain your underwear can contacts. Take this medication as directed with food. 3. Tylenol and Ibuprofen can be helpful for the pain, fever and body aches that can be associated with a kidney infection. Please follow recommended dosing instructions on the bottle. FOLLOW UP 1. If your symptoms are not improving in 24-48 hours 2. If your symptoms are getting more severe 3. Any unusual vaginal discharge 4. Symptoms recur after you complete medication SEEK CARE IMMEDIATELY IF 1.You have shaking chills or temperature over 101.5 2. Severe flank pain 3. Persistent vomiting, unable to keep fluids or medicine down. 4. Worse despite medication. If you develop any new or worsening symptoms and need after hours care, please go to nearest ER and/or call 911. If you have additional concerns or develop a change in your condition between 8am-10pm, please call [facility] at [phone] to help navigate your care. Not available 07/13/2021 17:42:15 Reason for Referral None Reported. Results Created Date Observation Date Name Description Value Unit Range Abnormal Flag Note LastModifiedBy Organization Detail LastModifiedTime 07/13/20 21 07/13/2021 urina lysis , dipst ick Appearance cloudy Not Available [facility] [address] [place], [address], 07/13/2021 17:37:18 07/13/20 21 07/13/2021 urina lysis , dipst ick Color dark yellow Not Available [facility] - [facility] [address] [place], [address], 07/13/2021 17:37:18 07/13/20 21 07/13/2021 urina lysis , dipst ick Glucose (ref: neg) Neg Not Available [facility] [address] [place], [address], 07/13/2021 17:37:18 07/13/20 21 07/13/2021 urina lysis , dipst ick Bilirubin (ref: neg) Neg Not Available [facility] - [facility] [address] [place], [address], 07/13/2021 17:37:18 07/13/20 21 07/13/2021 urina lysis , dipst ick Ketones (ref: neg) Neg Not Available [facility] [address] [place], [address], 07/13/2021 17:37:18 07/13/2007/13/2021 urina lysis , dipst ick Specific [place] (ref: 1.003 - 1.035) 1.025 Not Available [facility] [address] [place], [address], 07/13/2021 17:37:18 07/13/2007/13/2021 urina lysis , dipst ick Blood (ref: neg) Neg Not Available [facility] [address] [place], [address], 07/13/2021 17:37:18 07/13/2007/13/2021 urina lysis , dipst ick pH (ref: 5-7) 6.0 Not Available [facility] [address] [place], [address], 07/13/2021 17:37:18 07/13/20 21 07/13/2021 urina lysis , dipst ick Protein (ref: neg) ? ? ? Not Available [facility] [address] [place], [address], 07/13/2021 17:37:18 07/13/2007/13/2021 urina lysis , dipst ick Urobilinogen (ref: 0.2) 0 Not Available [facility] [address] [place], [address], 07/13/2021 17:37:18 07/13/20 21 07/13/2021 urina lysis , dipst ick Nitrites (ref: neg) negati ve Not Available [facility] - [facility] [address] [place], [address], 07/13/2021 17:37:18 07/13/20 21 07/13/2021 urina lysis , dipst ick Leukocytes (ref: neg) ? ? ? Not Available [facility] [address] [place], [address], 07/13/2021 17:37:18 06/07/20 21 06/08/2021 UA W/REF MARSHA CULTU RE appear/color YELLO W TURBI D Not Available [facility] (Centralized Electronic Ordering - All Locations) Patient Can Go To The Location Of Their Choice, 06/08/2021 22:39:58 06/07/2006/08/2021 UA W/REF MARSHA CULTU RE sp. gravity 1.033 (1.002 -1.030 ) high Not Available [facility] (Centralized Electronic Ordering - All Locations) Patient Can Go To The Location Of Their Choice, 06/08/2021 22:39:58 06/07/2006/08/2021 UA W/REF MARSHA CULTU RE urine pH 6.0 (5.0-8 .0) Not Available [facility] (Centralized Electronic Ordering - All Locations) Patient Can Go To The Location Of Their Choice, 06/08/2021 22:39:58 06/07/2006/08/2021 UA W/REF MARSHA CULTU RE urine albumin 1+ (neg) abnormal Not Available [facility] (Centralized [facility] Ordering - All Locations) Patient Can Go To The Location Of Their Choice, 06/08/2021 22:39:58 06/07/2006/08/2021 UA W/REF MARSHA CULTU RE urine glucose NEGATI VE (neg) Not Available [facility] (Centralized Electronic Ordering - All Locations) Patient Can Go To The Location Of Their Choice, 06/08/2021 22:39:58 06/07/2006/08/2021 UA W/REF MARSHA CULTU RE urine ketones TRACE (neg) abnormal Not Available [facility] (Centralized [facility] Ordering - All Locations) Patient Can Go To The Location Of Their Choice, 06/08/2021 22:39:58 06/07/2006/08/2021 UA W/REF MARSHA CULTU RE urine bilirubin NEGATI VE (neg) Not Available [facility] (Centralized Electronic Ordering - All Locations) Patient Can Go To The Location Of Their Choice, 06/08/2021 22:39:58 06/07/2006/08/2021 UA W/REF MARSHA CULTU RE urine hemoglobin NEGATI VE (neg) Not Available [facility] (Centralized Electronic Ordering - All Locations) Patient Can Go To The Location Of Their Choice, 06/08/2021 22:39:58 06/07/2006/08/2021 UA W/REF MARSHA CULTU RE urine nitrite NEGATI VE (neg) Not Available [facility] (Centralized Electronic Ordering - All Locations) Patient Can Go To The Location Of Their Choice, 06/08/2021 22:39:58 06/07/2006/08/2021 UA W/REF MARSHA CULTU RE urine leukocyte 3+ (neg) abnormal Not Available [facility] ([facility] Ordering - All Locations) Patient Can Go To The Location Of Their Choice, 06/08/2021 22:39:58 06/07/2006/08/2021 UA W/REF MARSHA CULTU RE urobilinogen NORMAL mg/dL (norm) Not Available [facility] ([facility] - All Locations) Patient Can Go To The Location Of Their Choice, 06/08/2021 22:39:58 06/07/2006/08/2021 UA W/REF MARSHA CULTU RE urine WBCs 80 /hpf (0-5) high Not Available [facility] (Centralized Electronic Ordering - All Locations) Patient Can Go To The Location Of Their Choice, 06/08/2021 22:39:58 06/07/2006/08/2021 UA W/REF MARSHA CULTU RE urine RBCs NONE SEEN /hpf (0-3) Not Available [facility] (Centralized Electronic Ordering - All Locations) Patient Can Go To The Location Of Their Choice, 06/08/2021 22:39:58 06/07/2006/08/2021 UA W/REF MARSHA CULTU RE bacteria SLIGHT hpf (neg) abnormal Not Available [facility] (Centralized Electronic Ordering - All Locations) Patient Can Go To The Location Of Their Choice, 06/08/2021 22:39:58 06/07/2006/08/2021 UA W/REF MARSHA CULTU RE mucus HEAVY /lpf Not Available [facility] (Centralized Electronic Ordering - All Locations) Patient Can Go To The Location Of Their Choice, 06/08/2021 22:39:58 06/07/2006/08/2021 UA W/REF MARSHA CULTU RE squamous epith 14 /hpf (0-8) high Not Available [facility] ([facility] Ordering - All Locations) Patient Can Go To The Location Of Their Choice, 06/08/2021 22:39:58 06/07/2006/08/2021 UA W/REF MARSHA CULTU RE calcium oxalate crystal SLIGHT /hpf Not Available [facility] ([facility] Ordering - All Locations) Patient Can Go To The Location Of Their Choice, 06/08/2021 22:39:58 06/07/2006/08/2021 UA W/REF MARSHA CULTU RE clarity TURBID (clear ) abnormal Not Available [facility] (Centralized Electronic Ordering - All Locations) Patient Can Go To The Location Of Their Choice, 06/08/2021 22:39:58 06/07/2006/08/2021 UA W/REF MARSHA CULTU RE culture indication CULTUR E INDICA JOSE Not Available [facility] (Centralized Electronic Ordering - All Locations) Patient Can Go To The Location Of Their Choice, 06/08/2021 22:39:58 06/07/2006/08/2021 URINE CULTU RE special requests NONE Reflex ed from [id number] Not Available [facility] (Centralized Electronic Ordering - All Locations) Patient Can Go To The Location Of Their Choice, 06/10/2021 09:37:10 06/07/2006/09/2021 URINE CULTU RE specimen description URINE Not Available [facility] - [facility] Locations) Patient Can Go To The Location Of Their Choice, 06/10/2021 09:37:10 06/07/2006/10/2021 URINE CULTU RE culture Mixed bacter ial ana, indica tive of urogen ital contam inatio n. Not Available [facility] (Centralized Electronic Ordering - All Locations) Patient Can Go To The Location Of Their Choice, [id number] 06/10/2021 09:37:10 06/07/2006/10/2021 URINE CULTU RE report status FINAL 2020 Not Available [facility] (Centralized Electronic Ordering - All Locations) Patient Can Go To The Location Of Their Choice, [id number] 06/10/2021 09:37:10 07/13/2007/14/2021 URINE CULTU RE specimen description CLEAN CATCH (URINE ) Not Available [facility] (Centralized Electronic Ordering - All Locations) Patient Can Go To The Location Of Their Choice, [id number] 07/15/2021 07:00:02 07/13/2007/14/2021 URINE CULTU RE special requests NONE Not Available [facility] ([facility] Order[facility] - All Locations) Patient Can Go To The Location Of Their Choice, [id number] 07/15/2021 07:00:02 07/13/2007/15/2021 URINE CULTU RE culture NO GROWTH Not Available [facility] (Centralized Electronic Ordering - All Locations) Patient Can Go To The Location Of Their Choice, [id number] 07/15/2021 07:00:02 07/13/2007/15/2021 URINE CULTU RE report status FINAL 2020 Not Available [facility] (Centralized Electronic Ordering - All Locations) Patient Can Go To The Location Of Their Choice, [id number] 07/15/2021 07:00:02 Result Notes None recorded. Procedures Surgical History Date Name Laterality Status Provider Name and Address Organization Details Recorded Time 03/09/20 Medication Review completed Mercedes Glover NP [address] [place], [address], [place] [facility] 03/09/2021 13:23:06 Imaging Results None recorded. Procedure Notes None recorded. Medical Equipment None Reported. Allergies Allergen ID Allergen Name Allergen Category Reaction Reaction Severity Criticality Documentation Date Start Date Code Code System Note Provider Name and Address Organization Details Recorded Time [id number] erythromy bala medicatio n Not available Not available Not available 03/09/2021 4053 RxNorm Mercedes Glover NP [address], [place], [place], [address], [place] [facility] 12:47:15 [id number] codeine medicatio n Not available Not available Not available 03/09/2021 2670 RxNorm Mercedes Glover, NON FERROUS MATERIAL [employer] [address], [place], [place], [address], [place] [facility] 12:47:20 [id number] Lipitor medicatio n Not available Not available Not available 03/09/2021 13948 5 RxNorm Mercedes Glover, NON FERROUS [employer] [address], [place], [place], [address], [place] [facility] 12:47:25 [id number] amlodipin e medicatio n Not available Not available Not available 03/09/2021 08910 RxNorm Mercedes Glover, NON [employer]ERROUS [employer] [address], [place], [place], [address], [place] [facility] 13:18:49 [id number] azithromy bala medicatio n Not available Not available Not available 03/09/2021 52530 RxNorm Mercedes Glover, NON FERROUS MATERIAL [employer] [address], [place], [place], [address], [place] [facility] 13:18:57 [id number] Zetia medicatio n Not available Not available Not available 03/09/2021 97091 9 RxNorm Mercedes Glover, NON [employer]ERROUS MATERIAL [employer] [address], [place], [place], [address], [place] [facility] 13:19:02 [id number] hydrochlo rothiazid e medicatio n Not available Not available Not available 03/09/2021 5487 RxNorm Mercedes Glover, NON [employer]ERROUS MATERIAL [employer] [address], [place], [place], [address], [place] [facility] 13:19:11 [id number] acetamino phen / hydrocodo ne medicatio n Not available Not available Not available 03/09/2021 14720 2 RxNorm Mercedes Glover, NON FERROUS MATERIAL [employer] [address], [place] [address], [place], [address], [place] [facility] 13:19:17 [id number] Macrobid medicatio n Not available Not available Not available 07/13/2021 20305 1 RxNorm Yesica Sanchez, NON FERROUS MATERIAL HANDLER [address], [address], [place], [address], [place] [facility] 17:20:26 Medications Name Sig Start Date Stop Date Status Note LastModified by Organization Details LastModified Time neomycin-po lymyxin-hyd rocort 3.5 mg/mL-10,00 0 unit/mL-1 % ear solution active Not Available Not Available Not Available oxcarbazepi ne 150 mg tablet active Not Available Not Available Not Available gabapentin 600 mg tablet active Not Available Not Available Not Available metoprolol succinate ER 50 mg tablet,exte nded release 24 hr active Not Available Not Available Not Available levetiracet am 500 mg tablet active Not Available Not Available Not Available Claritin 10 mg tablet Take 1 tablet(s) every day by oral route for 30 days. active Not Available Not Available No t Available minocycline 100 mg capsule 06/07 completed Not Available Not Available Not Available sucralfate 1 gram tablet active Not Available Not Available Not Available Debrox 6.5 % ear drops INSTILL 5 DROPS INTO AFFECTED EAR(S) BY OTIC ROUTE 2 TIMES PER DAY 2020 active Not Available Not Available Not Avai lable pantoprazol e 20 mg tablet,ngoc yed release active Not Available Not Available Not Available hydrocortis one 1 % topical cream APPLY A THIN LAYER TO EXTERNAL EARS BY TOPICAL ROUTE 2 TIMES PER DAY NEEDED 2020 active Not Available Not Available Not Avai lable pantoprazol e 40 mg tablet,ngoc yed release active Not Available Not Available Not Available clotrimazol e-betametha sone 1 %-0.05 % topical cream active Not Available Not Available Not Available metoprolol tartrate 50 mg tablet active Not Available Not Available No t Available verapamil ER (SR) 240 mg tablet,exte nded release active Not Available Not Available Not Available hydroxyzine HCl 25 mg tablet active Not Available Not Available Not Available furosemide 20 mg tablet active Not Available Not Available Not Available metoprolol succinate ER 25 mg tablet,exte nded release 24 hr active Not Available Not Available Not Available albuterol sulfate HFA 90 mcg/actuati on aerosol inhaler active Not Available Not Available Not Available ketoconazol e 2 % topical cream active Not Available Not Available Not Available lisinopril 40 mg tablet active Not Available Not Available Not Available fluticasone propionate 50 mcg/actuati on nasal spray,suspe nsion active Not Available Not Available Not Available clotrimazol e 1 % topical cream APPLY TO THE AFFECTED AND SURROUNDI NG AREAS OF SKIN BY TOPICAL ROUTE 2 TIMES PER DAY IN THE MORNING AND EVENING active Not Available Not Available No t Available amoxicillin 875 mg-potassiu m clavulanate 125 mg tablet 06/07 completed Not Available Not Available Not Available cyclobenzap rine 5 mg tablet active Not Available Not Available Not Available rosuvastati n 20 mg tablet active Not Available Not Available Not Available metoprolol tartrate 25 mg tablet active Not Available Not Available No t Available nitrofurant oin monohydrate /macrocryst als 100 mg capsule 07/13 completed Not Available Not Available Not Available duloxetine 30 mg capsule,del ayed release active Not Available Not Available Not Available duloxetine 60 mg capsule,del ayed release active Not Available Not Available Not Available [facility] 100,000 unit/gram topical powder APPLY TO THE AFFECTED AREA(S) BY TOPICAL ROUTE 2 TIMES A DAY NEEDED active Not Available Not Available No t Available acetaminoph en active Not Available Not Available Not Available aspirin active Not Available Not Avail able Not Available loratadine 10 mg capsule active Not Available Not Available Not Available Combivent Respimat 20 mcg-100 mcg/actuati on solution for inhalation active Not Available Not Available N ot Available Vitals Date Recorded Body temperature Respiratory rate Heart rate Oxygen saturation Oxygen saturation in Arterial blood by Pulse oximetry Systolic blood pressure Diastolic blood pressure Provider Name and Address Organization Details Last Updated DateTime 1 97.8 [degF] 20 /min 60 /min 100 % 100 % 138 mm[Hg] 86 mm[Hg] Not Available [facility] 13:19:39 Date Recorded Respiratory rate Heart rate Oxygen saturation Oxygen saturation in Arterial blood by Pulse oximetry Body temperature Systolic blood pressure Diastolic blood pressure Provider Name and Address Organization Details Last Updated DateTime 1 20 /min 98 /min 98 % 98 % 98.7 [degF] 120 mm[Hg] 60 mm[Hg] Not Available [facility] 16:04:30 Date Recorded Body temperature Heart rate Oxygen saturation Oxygen saturation in Arterial blood by Pulse oximetry Respiratory rate Systolic blood pressure Diastolic blood pressure Provider Name and Address Organization Details Last Updated DateTime 98 [degF] 64 /min 96 % 96 % 20 /min 136 mm[Hg] 82 mm[Hg] Not Available [facility] 17:35:31 Social History Question Answer Notes LastModified by Organizat ion Details LastModified Time Tobacco Smoking Status Never Smoker Mercedes Glover, KRISTEL [address], [place], [address], [place] [facility] 03/09/2021 12:52:17 Do You Have An Advance Directive? Yes [email or web address] Information not available 03/09/2021 What Is Your Level Of Alcohol Consumption? None Information not available 07/13/2021 What Is Your Code Status? DNR/DNI [email or web address] Information not available 03/09/2021 Within The Past 12 Months, Has It Happened That The Food You Bought Just Didn't Last And You Didn't Have Money To Get More. No [email or web address] Information not available 03/09/2021 Within The Past 12 Months, Have You Worried That Your Food Would Run Out Before You Got Money To Buy More. No [email or web address] Information not available 03/09/2021 Fall Risk: Do You Feel Unsteady When Standing Or Walking? No [email or web address] Information not available 03/09/2021 We Know That How And When People Interact With Friends And Family Can Be Very Different From Person To Person. How Often Do You Have The Opportunity To See Or Talk To People That You Care About And Feel Close To? (Ex: Talking To Friends On The Phone Or Visiting Friends Or Family Or Going To Evangelical Or Club Meetings) 5 Or More Times Per Week [email or web address] Information not available 03/09/2021 Excessive Alcohol Or Drug Use No Information not available 07/13/2021 Does This Patient Have A PCP? Yes Information not available 07/13/2021 We Know From Many Of Our Patients That Covering All Of Their Costs Can Be Difficult At Times. This Can Cause Stress And Impact Health. In The Past Year, Have You Been Unable To Get Any Of The Following When It Was Really Needed? No Information not available 03/09/2021 What Is Your Housing Situation Today? I Have Housing [email or web address] Information not available 03/09/2021 Would You Like Help Connecting To Resources? None [email or web address] Information not available 03/09/2021 Do You Use Any Illicit Or Recreational Drugs? No Information not available 07/13/2021 Do You Or Have You Ever Used Any Other Forms Of Tobacco Or Nicotine? No Information not available 07/13/2021 Sex: Unknown Functional Status None recorded. Mental Status None recorded. Family History Relationship Description Onset Age of this Age Resolved Age Notes LastModified by Organization Details LastModified Time Mother Coronary arterioscler osis [email or web address] Not available 2020 12:52:23 Medical History Condition Response Diabetes Y Coronary Artery Disease N High Cholesterol Y Pulmonary Embolism N Cancer N Hypertension Y Stroke Y Asthma N COPD N Depression Y Kidney Disease N Gynecological HistoryNo gynecological history recorded. Obstetrics History GPAL:G 0 P 0 0 0 0 Past Encounters Encounter ID Performer Location Encounter Start Date Encounter Closed Date Diagnosis/Indication Diagnosis SNOMED-CT Code Diagnosis ICD10 Code Diagnosis Note [id number] Mercedes Glover NP [facility] [address] [facility] [address] 03/09/2021 12:21:51 03/10/2021 13:55:26 Fungal infection by site 028926811 B49 Itching of ear 851725636 L29.8 Impacted c erumen in left ear 7381911549 232404 H61.22 Seasonal a llergic rhinitis 158317381 J30.2 [id number] [facility] [address] [place] [place] [address] 06/07/2021 15:39:21 06/15/2021 11:52:03 Dysuria 65076986 R30.9 Candidal intertrigo 2661 12818 B37.2 [id number] Yesica Sanchez NP [facility] [address] [facility] [address] 07/13/2021 17:18:45 07/14/2021 16:03:52 Dysuria 36739242 R30.9 Overview/H istory: Patient is a 75 year old alert female who resides in an assisted living/atif up home setting. Chief complaint this visit is ongoing UTI symptoms. Patient is unable to quantify the duration of her symptoms. She was seen last 06/07/2021 for same symptoms and prescribed a course of Macrobid which caused pruritis and is now listed as a new allergy. Patient medical history significan t for depression , diabetes, hyperlipid emia, HTN, left upper hemiparesi s resulting from stroke. 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 Exam: Afebrile 98.0. HRR 64, S1, S2. Trachea midline, no JVD distention . Dry mucous membranes. LSCTA bilaterall y, no WOB. Abdomen obese, + BS x 4 quadrants. No CVA tenderness , no suprapubic tenderness . Urine cloudy and concentrat ed. DDx considered , but not limited to:UTI considered , + leukocytes urethral stricture, neurogenic bladderure teral stone unlikely, no blood in urinepyelo nephritis considered , afebrile, no CVA tenderness Work up/Results :ExamUrine dipstick, + leukocytes Urine culture sent to lab Plan/Discu ssion:1. Contact patient and PCP with urine culture results. ABX if indicated. 2. Encouraged increase in fluids/hyd ration, Tylenol 3 x a day as ordered.3. Discussed acute s/s to report to ED. Patient and staff able to reiterate all discussed. No questions at this time. Med Rec completed Proper Personal Protective Equipment (PPE), including {{gloves, eye protection , masks, and gowns, shoe covers jack ves, eye protection and masks glov es, eye protection gloves, eye protection , N95 mask, gown, and shoe covers* newton rgical mask with face-shiel d, gloves, gown and shoe covers nabeel gical mask with face-shiel d, gloves}} were donned and doffed appropriat bianca and all equipment cleaned using approved technique with germicidal disposable wipes prior to and after care of this patient according to [facility]'s infection prevention protocols. In order to obtain further informatio n and compare any laboratory results/va lues, I have accessed old medical records.. This informatio n was pertinent in my medical decision making today. Increased frequency of urination 789521407 R35.0 Health Concerns Section Related Observation LastModified by Organization Detai ls LastModified Time None Recorded Concern Status LastModified by Organization Details LastModified Time None Recorded Advance Directives Directive Y: Payers Encounter Date Sequence Insurance Name Policy Number Policy Sow Covered Member ID Sow Member ID Guarantor Name 03/09/2021 1 [place] [employer] Sue J Blasko [id number] Sue Blasko 03/09/2021 2 [place] [facility] Sue Blasko [id number] Sue Blasko 06/07/2021 1 [place] [employer] [place] Sue J Blasko [id number] Sue Blasko 06/07/2021 2 [place] [facility] Sue Blasko [id number] Sue Blasko 07/13/2021 1 [place] [employer] [place] Sue J Blasko [id number] Sue Blasko 07/13/2021 2 [place] [facility] Sue Blasko [id number] Sue Blasko Notes Date Note Type Note Provider Name and Address Organization Details Recorded Time 03/09/2021 text/html 75yo female who is new to with a PMHx of depression, conversion disorder, epilepsy, 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 [facility], staff reports they noticed some redness and blisters yesterday believe the worst today. At baseline, she ambulates with a walker and uses a wheelchair. No fevers. She also reports a variety of other concerns including seasonal allergies, ear itching, sneezing and post nasal drip. Mercedes Glover NP [address], [place], [address], [place] [facility] 03/09/2021 14:35:32 06/07/2021 text/html 75 y/o F with PM Hx sig for conversion disorder, depression, DM w/ peripheral neuropathy, ischemic right MCA stroke with LUE hemiparesis, epilepsy, fibromyaglia, PAF, known to but new to this provider, who presents w/ c/o burning with urination. Patient reports that the skin of her vulva stings when ever it gets wet and that sometimes she is left to sit in her diapers for a couple hours because the staff does not want to put her on a bed clifford. She reports intermittent burning at the urethra with urination but is more concerned about the burning skin. They use nystatin powder under her breasts but nothing in the groin area. She reports symptoms going on for about 1 week. Denies vaginal discharge, itching, new back pain, fever, chills, nausea, vomiting, bladder pain, or h/o recurrent UTIs. LUCIA GILLETTE [address], [place], [address], [place] [facility] 06/07/2021 17:08:03 07/13/2021 text/html Patient is a 75 year old alert female who resides in a penit[facility]iary. Patient chief complaint is burning, frequency and smell to her urine. Denies fever, denies blood in urine, denies flank pain. Alleviating factor is taking Tylenol. Patient medical history significant for depression, diabetes, hyperlipidemia, HTN, left upper hemiparesis resulting from stroke. 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 Yesica Sanchez NP [address], [place], [address], [place] [facility] 07/13/2021 18:04:41 OBGyn Episode No OBEpisode recorded.
--- OUTSIDE RECORDS SUMMARY | 2024-12-10 17:46 | XMS_ITS | Clinical Summary ---
Author Organization [facility] Facility Address [address] [address] Care Team Providers Care Dinkey Press Operator Name Role Phone Unavailable Primary Care Provider [...]
--- OUTSIDE RECORDS SUMMARY | 2024-12-10 17:46 | XMS_ITS ---
Author Organization [facility] Address [address] [place] [address] Care Team Providers Care Operator [employer] Name Role Phone Awilda Brown Primary Care Provider King Camacho Unavailable [phone] Awilda Brown MD Unavailable Unavaila ble REASON FOR VISIT refill on rx Medications Medication SIG (Take, Route, Fr equency, Duration) Notes Start Date End Date Status Ammonium Lactate 12 % APPLY 1 APPLICATIO N TOPICALLY TWICE DAILY TO DRY AREAS OF THE FEET Active Encounters Encounter Location Date Provider Diagnosis [address] [address] 10/24/2024 King Tesfaye Plan Of Treatment Medication Medication Name Sig Start Date Stop Date Notes Ammonium Lactate 12 % APPLY 1 APPLICATIO N TOPICALLY TWICE DAILY TO DRY AREAS OF THE FEET Next Appt Details Provider Name:King Tesfaye , 02/11/2025 01:00:00 PM, [address] [place], [address], Progress Notes * Sue DE LA VEGADOB: [birth year] (79 yo F)Acc No.[id number]:10/24/2024 Patient:?Sue DE LA VEGA :1945???Age:79 Y???Sex:Female Address:[address] [place] [address] * Refills? Refill Ammonium Lactate Cream, 12 %, 140 Gram, APPLY 1 APPLICATION TOPICALLY TWICE DAILY TO DRY AREAS OF THE FEET, Refills=0 * true * Date:? Generated for Eli almonte/Prateek/Alf on:?12/10/2024 05:45 PM EDT
--- NOTE | 2024-12-10 18:16 | PC.NURSE ---
director of group counseling program called requesting alternative to tylenol as pt is already on daily max dose of tylenol . this RN requested ibuprofen from [facility] MYERS who sent the script.
== END 2024-12-10 18:17 | disposition home or self-care (01) ==
PROVIDERS: Emergency Provider Student in an Organized Health Care Education/Training Program; PCP Internal Medicine
DX: S52.502A Unspecified fracture of the lower end of left radius, initial encounter for closed fracture (principal); M25.512 Pain in left shoulder; R07.89 Other chest pain; R50.9 Fever, unspecified; M25.552 Pain in left hip; R51.9 Headache, unspecified; M25.551 Pain in right hip; M25.532 Pain in left wrist; R05.9 Cough, unspecified; E11.9 Type 2 diabetes mellitus without complications; W19.XXXA Unspecified fall, initial encounter; Y93.9 Activity, unspecified; Y92.9 Unspecified place or not applicable; Y99.8 Other external cause status; Z86.73 Personal history of transient ischemic attack (TIA), and cerebral infarction without residual deficits; Z91.81 History of falling; Z79.01 Long term (current) use of anticoagulants; Z79.899 Other long term (current) drug therapy; Z79.84 Long term (current) use of oral hypoglycemic drugs
CPT/HCPCS: 25605; 29125; 73030; 73060; 73080; 73090; 73110; 73130; 73521; 99284; J2003

== ENCOUNTER → 2024-12-10 13:48 | Outpatient (BNV) | payer MEDICARE, MEDICAID, SELFPAY | PROVIDERS: Emergency Provider Student in an Organized Health Care Education/Training Program; PCP Internal Medicine; Visit Provider Radiology Diagnostic Radiology | DX: M25.551 Pain in right hip (principal); M25.552 Pain in left hip; M25.512 Pain in left shoulder; S52.602A Unspecified fracture of lower end of left ulna, initial encounter for closed fracture; M79.642 Pain in left hand; M25.522 Pain in left elbow; M79.622 Pain in left upper arm; W19.XXXA Unspecified fall, initial encounter | CPT/HCPCS: 73080; 73090; 73110 ==

== ENCOUNTER 2024-12-17 08:35 | Outpatient (REF) | payer MEDICARE, MEDICAID, SELFPAY ==
--- NOTE | ~2024-12-17 | XR_ITS ---
EXAMINATION: XR WRIST 3 OR MORE VIEWS LEFT HISTORY: M25.532 - Pain in left wrist COMPARISON: Comparison is made with the prior examination dated 12/10/2024. FINDINGS: AP and lateral casted views of the left wrist are submitted. The fiberglass cast obscures fine bony detail. Again seen are comminuted fractures of the distal radial and ulnar metaphyses. The fracture lines remain visible. 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 The soft tissues are unremarkable. XR/XR wrist LT min 3V IMPRESSION: Casted comminuted fractures of the distal radial and ulnar metaphyses without change. Electronically signed by: Andre Desai MD 12/17/2024 03:53 PM EDT
== END 2024-12-17 08:36 | disposition home or self-care (01) ==
LOC: HO.HOSX 08:35
PROVIDERS: Visit Provider Orthopaedic Surgery
DX: S52.602A Unspecified fracture of lower end of left ulna, initial encounter for closed fracture (principal); E11.9 Type 2 diabetes mellitus without complications; G81.94 Hemiplegia, unspecified affecting left nondominant side; Z79.899 Other long term (current) drug therapy
CPT/HCPCS: 25600; 73110; 99202

== ENCOUNTER → 2024-12-17 11:52 | Outpatient (BNV) | payer MEDICARE, MEDICAID, SELFPAY | PROVIDERS: Visit Provider Radiology Diagnostic Radiology | DX: M25.532 Pain in left wrist (principal); S52.602A Unspecified fracture of lower end of left ulna, initial encounter for closed fracture | CPT/HCPCS: 73110 ==

== ENCOUNTER 2024-12-17 11:53 | Outpatient (AMB) | payer MEDICARE, MEDICAID, SELFPAY ==
--- NOTE | 2024-12-17 12:06 | MHC.OFFVIS ---
Vital Signs 12/17/24 12:07 Height 5 ft 3 in Weight 255 lb BMI 45.2 Intake Visit Reasons: FC- ED f/u Left Distal radius fx Intake Note: Sue 79 yr old female presents today for a new patient visit for a evaluation for her left hand distal radius fracture [place] [facility] [place]. States she fell while at home and hurt her hand. Se[place] [facility] [place] where xrays were taken, reduced and splinted. State she has a little numbness and tingling on and off which she did not have before her fall. Hx of stroke ( left side is completely paralyzed) Patient is diabetic. Allergies azithromycin [AZITHROMYCIN] Allergy (Unknown, Verified 12/17/24 12:33) ITCHY acetaminophen [From Vicodin] Allergy (Verified 12/17/24 12:33) Unknown amlodipine Allergy (Verified 12/17/24 12:33) Unknown ezetimibe [From Zetia] Allergy (Verified 12/17/24 12:33) Unknown hydrochlorothiazide Allergy (Verified 12/17/24 12:33) Unknown hydrocodone [From Vicodin] Allergy (Verified 12/17/24 12:33) Unknown Xfuaitp-BBP-GvG Reductase Inhibitor Allergy (Verified 12/17/24 12:33) Unknown codeine [CODEINE] Adverse Reaction (Unknown, Verified 12/17/24 12:33) NAUSEA codeine Allergy (Unknown, Uncoded 12/17/24 12:33) facial flushing/vomiting HPI HPI FC- ED f/u Left Distal radius fx: Details: Sue is an 79 year old right hand dominant Diabetic woman who presents for a left distal radius fracture, after a fall, DOI: 12/10/24. She was seen in the [place] ED & this was reduced & splinted. She has a Hx of CVA & left hemiplegia. She says she fell while walking to the bathroom. She is seen with her worker today. She complains of pain in her wrist. She says she has had no functional use of her left hand since her stroke many years ago. [facility] Medical History Peripheral neuropathy Hypertension Dysphagia Gastroesophageal reflux disease Seizure disorder Non-insulin dependent type 2 diabetes mellitus Mood disorder Paralysis CVA (cerebral vascular accident) Social History Household Members: Other Housing: Other Housing Other:: care home Do you presently have visiting nurse or other home services: No Alcohol intake: never Patient Tobacco Use Status: Never used Tobacco Advance Directives Date on File: 07/26/24 service: No Review of Systems Const All systems reviewed & are unremarkable except as noted in HPI and below Physical Exam Vital Signs: BMI result Body Mass Index 45.2 Const General: cooperative, healthy appearing and no acute distress Orientation/consciousness: patient oriented x3 HEENT Head: Yes normocephalic and Yes atraumatic Eyes EOM: EOMs intact bilaterally Resp Effort & Inspection: normal respiratory effort and able to speak in complete sentences Cardio Jugular venous distension: no JVD Skin General skin exam: turgor normal Rashes: no rashes Neuro General: patient oriented x3 Extrem Other: Evaluation of Left Upper Extremity: The patient is alert, oriented, and in no acute distress The patient is 5 ft 3 and 255 lb. She is in a wheelchair today. She is seen today in a fiberglass splint, which does not extend fully to the elbow, placed by the ED. She has flexion contractures of all DIP & PIP joints of her left hand, secondary to Hemiplegia following a CVA. Radiographs: 3 views of the left wrist were taken today, viewed, and compared to post-reduction radiographs from 12/10/24. They show a distal radius fracture, comminuted, intra-articular, as well as a distal ulna fracture. Improved alignment following reduction, and she appears to have maintained satisfactory fracture alignment since the day of her reduction. PIP & DIP joint flexion contractures of all digits Psych Appearance: grossly normal Affect: normal affect Attitude: cooperative Office Procedures AMB Fracture Care Details: Fracture care 26058 Fracture Billing Code: Fracture Billing Code Assessment & Plan Assessment & Plan (1) Distal radius fracture, left: Code(s): S52.502A - Unspecified fracture of the lower end of left radius, initial encounter for closed fracture Category: Medical (2) Fracture of distal end of left ulna: Code(s): S52.602A - Unspecified fracture of lower end of left ulna, initial encounter for closed fracture Category: Medical (3) Non-insulin dependent type 2 diabetes mellitus: Code(s): E11.9 - Type 2 diabetes mellitus without complications Category: Medical (4) Hemiplegia affecting left nondominant side: Code(s): G81.94 - Hemiplegia, unspecified affecting left nondominant side Category: Medical Plan Assessment & Plan: 1. Left distal radius fracture, comminuted, intra-articular S/P fall, DOI: 12/10/24 Reduced in ED: 12/10/24 2. Left distal ulna fracture, S/P fall DOI: 12/10/24 She has a Hx of CVA & left-sided Hemiplegia I educated her about this condition I discussed operative and non-operative treatment options I recommend we manage this non-operatively, and she is in agreement She will continue to wear her fiberglass splint like a cast until her next appointment She should keep her wrist elevated at or above heart level when at rest It sounds like they had her stay in her bed 24/04 since this injury. She should be out of bed and in a chair at least once day, and I wrote this in my instructions. Her assistant professor of theater notes that she now requires 3 people to assist her to move to a chair, and they were able to do so today.. I believe that is likely to continue for the time being as she does need somebody to attend to her left upper extremity and protect it when she is being moved. She will follow up in 2 weeks with me, with X-rays, 3V L wrist. Anticipate placement in a short arm cast at that time Scribed for Adrienne Gong MD by Tl Cook, er medical technician, on 12/17/24 at 12:45 PM, EST. Orders: Orders XR wrist LT min 3V Today M25.532 - Pain in left wrist Coding Level of Care Code New Pt Level 4 (68728) Diagnoses Distal radius fracture, left S52.502A Fracture of distal end of left ulna S52.602A Non-insulin dependent type 2 diabetes mellitus E11.9 Hemiplegia affecting left nondominant side G81.94 CPT Codes Fracture Care - Fracture Billing Code: Fracture Billing Code ([id number])
[2024-12-17 12:07] VITALS: BMI 45.2
--- OUTSIDE RECORDS SUMMARY | 2024-12-17 14:17 | XMS_ITS ---
Author Organization [facility] Address [address] [place] [address] Care Team Providers Care Industrial Editor Name Role Phone Awilda Brown Primary Care Provider Pamelava King Mcghee Unavailable [phone] Stephanie AGUIRRE, Awilda Unavailable Unavaila ble Allergies Allergen (clinical drug ingredient) Drug/Non Drug Allergy documented on EMR Reaction Allergy Type Onset Date Status Vicodin Unknown Drug Allergy Active ezetimibe Zetia Unknown Drug Allergy Active amlodipine Amlodipine Unknown Drug Allergy Activ e azithromycin Azithromycin Unknown Drug Allergy A ctive codeine Codeine Unknown Drug Allergy Active hydrochlorothiazide Hydrochlorothiazide Unknown Drug Aller gy Active Substance with 7-attbzxj-1-methylglutar yl-coenzyme A reductase inhibitor mechanism of action [...] ed eye Ophthalmic Once a day Active Qkfyrfw-Msfdflea-Xrqalvbpy- HC 1 % 1 application into the [...] Problem Acquired hammer toe of right foot (6007592113918 105) Other hammer toe(s) (acquired), right foot (M20.41) Active confirmed Problem Acquired hammer toe of left foot (5686389428047 103) Other hammer toe(s) (acquired), left foot (M20.42) Active confirmed Vital Signs Height 5 ft 3 in in 11/05/2024 Weight 300 lbs 11/05/2024 BMI 53.14 kg/m2 11/05/2024 Blood pressure systolic 140 mm Hg 11/05/19 25 Blood pressure diastolic 70 mm Hg 025 Procedures Procedure Date Ordered Date Performed Result Body Sit e 06416-FNTWOGD NAIL, 6 OR MORE 11/05/2024 N/A 91276-KZSI SKIN LESION 11/05/2024 N/A Encounters Encounter Location Date Provider Diagnosis [facility] [place] [address] [place] [address] 11/05/2024 King Tesfaye Type 2 diabetes mellitus [...] INSTRUCTIONS.pdf) Pending Test Test Name Order Date 98004-FDJHJTY NAIL, 6 OR MORE 11/05/2024 19321-XEDR SKIN LESION 11/05/2024 Next Appt Details Follow Up: 3 Months, Reason: Provider Name:King Tesfaye , 02/11/2025 01:00:00 PM, [address] [place] [address], [phone], Procedure Notes * Category Sub-Category Detail [...] use of a nail nipper and/or dremel-type saw grinder, to a more viable healthy nail [...] to maintain effectiveness in symptomatic relief - 46087 Keratoma Treatment Parring or Cutting o f [...] instrumentation by the physician of record - 57830, Q8 Progress Notes * Sue DE LA VEGADOB: [birth year] (79 yo F)Acc No.[id number]:11/05/2024 Progress Note Patient:?SARASue SHELL Provider:?iKng Tesfaye DPM :1945???Age:79 Y???Sex:Female D ate:11/05/2024 Address:[address] [place] [address], [place] Pcp:Awilda Brown Subjective: * Chief Complaints: * [...] my 1986cholecystectomy 2005 * [place]ization/Major Diagno stic [place] [place] [place], 2 day stay [place] [place] * Family History:?Mother: unkn own, [...] no. ?Marital status: . 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 ???Drug/Alcohol:?AUDIT-C (Standard)?Did you have a drink containing alcohol in the past year??No ?Points?0 ?Interpretation?Negative * Medications:?TakingOlopatadi ne HCl 0.2 % Solution 1 drop into affected eye Ophthalmic Once a day Jsrdzkc-Wnuxqajz-Szqliwsqd-HC 1 % Ointment 1 application into the [...] affected eye Ophthalmic Once a day Taking Vvuwyxl-Hlfwhlpn-Yfgbdsywk-HC 1 % Ointment 1 application into the [...] mellitus with diabetic peripheral angiopathy without gangrene?Procedure: 37312-EIKT SKIN LESION 3.?Tinea unguium?Procedure: 86842-RTXFCWB NAIL, 6 OR MORE * Procedures:?Debride Nail [...] use of a nail nipper and/or dremel-type saw grinder, to a more viable healthy nail [...] to maintain effectiveness in symptomatic relief - 22884.?Keratoma Treatment:?Parring or Cutting of Benign Hyperkeratotic Lesion(s)?(-55) [...] instrumentation by the physician of record - 53393, Q8.? * Procedure Codes:?16276 DEBRI DE NAIL, 6 OR MORE, Modifiers: XS 59998 TRIM SKIN LESION, Modifiers: XS , Q8 [...] Tesfaye DPM Date:?2024 Generated for Eli almonte/Prateek/Alf on:?12/17/2024 02:17 PM EDT History and Physical Notes * [...]
--- OUTSIDE RECORDS SUMMARY | 2024-12-17 14:17 | XMS_ITS ---
Author Organization [facility] Address [address] [place] [address] Care Team Providers Care Flexographic Press Set Up Operator Name Role Phone Awilda Brown Primary Care Provider King Camacho Unavailable [phone] Awilda Brown MD Unavailable Unavaila ble Allergies Allergen (clinical drug ingredient) Drug/Non Drug Allergy documented on EMR Reaction Allergy Type Onset Date Status Vicodin Unknown Drug Allergy Active ezetimibe Zetia Unknown Drug Allergy Active amlodipine Amlodipine Unknown Drug Allergy Activ e azithromycin Azithromycin Unknown Drug Allergy A ctive codeine Codeine Unknown Drug Allergy Active hydrochlorothiazide Hydrochlorothiazide Unknown Drug Aller gy Active Substance with 5-ylezddj-0-methylglutar yl-coenzyme A reductase inhibitor mechanism of action [...] Severe 0.3 % as directed Ophthalmic Active Oncdrye-Sbsqkmfs-Kewifdkkj-H C 1 % 1 application into the [...] Ordered Date Performed Result Body Sit e 53479-KVFPKZU NAIL, 6 OR MORE 08/06/2024 N/A Encounters Encounter Location Date Provider Diagnosis [facility] [address] [address] 08/06/2024 King Tesfaye Type 2 diabetes mellitus [...] Treatment Pending Test Test Name Order Date 52578-UUOBTXM NAIL, 6 OR MORE 08/06/2024 Next Appt Details Follow Up: 3 Months, Reason: Provider Name:King Tesfaye , 02/11/2025 01:00:00 PM, [address] [place] [address], [phone], Procedure Notes * Category Sub-Category Detail Notes Debride Nail 6-10 Nail debridement Performance o f this nail treatment by a nonprofessional would put this patients foot and overall health at risk. Therefore, nail debridement was performed extensively to reduce/remove overall nail length, girth, thickness, subungual debris, and necrotic tissue, by manual and/or electrical means through the use of a nail nipper and/or dremel-type magnetic grinder operator, to a more viable healthy nail plate or bed tissue 6-10. Silver nitrate used for any petechial bleeding as necessary. Definitive antifungal treatment options have been reviewed and discussed with the patient. The patient chooses, no pharmaceutical tx - 93221 Progress Notes * Sue DE LA VEGA: [birth year] (79 yo F)Acc No.[id number]:08/06/2024 Progress Note Patient:?Sue DE LA VEGA Provider:?King Tesfaye DPM :1945???Age:78 Y???Sex:Female D ate:08/06/2024 Address:[address] [place], [place] [id number] Pcp:Awilda Brown Subjective: * Chief Complaints: * [...] my 1986cholecystectomy 2004 * Hospitalization/Major Diagno stic [place] [place] [facility] [place] - [place] 2 day stay 11[place]20[place] [place] * Family History:?Mother: unkn own, Heart attack, Poor circulation, diagnosed with Unspecified heart disease.?Father: , prostate cancer.?Spouse: alive.? * Social History:?Tobacco Use:?Tobacco Use/Smoking?Are you a:?nonsmoker ?Additional Findings: Tobacco Non-User?Current non-smoker ?Tobacco use other than smoking?Are you an other tobacco user??No ???Miscellaneous:?Caffeine: yes, frequency:, 1-2 cups per day. ?Children: yes. ?Exercise: no. ?Marital status: . 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 * Medications:?TakingOlopatadi ne HCl 0.2 % Solution 1 drop into affected eye Ophthalmic Once a day Vzjdokx-Dghzypah-Seyiflhtj-HC 1 % Ointment 1 application into the [...] affected eye Ophthalmic Once a day Taking Kbfanpi-Klojaamc-Bmzopfniq-HC 1 % Ointment 1 application into the [...] use of a nail nipper and/or dremel-type magnetic grinder operator, to a more viable healthy nail plate or bed tissue 6-10. Silver nitrate used for any petechial bleeding as necessary. Definitive antifungal treatment options have been reviewed and discussed with the patient. The patient chooses, no pharmaceutical tx - 71539.? * Procedure Codes:?97622 DEBRI DE NAIL, 6 OR MORE * [...] Provider:?King Tesfaye DPM Date:?2023 Generated for Eli almonte/Prateek/Josiassmitting on:?12/17/2024 02:17 PM EDT History and Physical [...]
--- OUTSIDE RECORDS SUMMARY | 2024-12-17 14:17 | XMS_ITS | Patient Health Record ---
Author Organization [facility] Address [address] [place] [address] Care Team Providers Care Deckhand Sponge Boat Name Role Phone Awilda Brown Primary Care Provider King Camacho Unavailable [phone] Awilda Brown MD Unavailable UnavailSunni Taylor Unavailable [phone] Allergies Allergen (clinical drug ingredient) Drug/Non Drug Allergy documented on EMR Reaction Allergy Type Onset Date Status Vicodin Unknown Drug Allergy Active ezetimibe Zetia Unknown Drug Allergy Active amlodipine Amlodipine Unknown Drug Allergy Activ e azithromycin Azithromycin Unknown Drug Allergy A ctive codeine Codeine Unknown Drug Allergy Active hydrochlorothiazide Hydrochlorothiazide Unknown Drug Aller gy Active Substance with 9-gvtdfxl-0-methylglutar yl-coenzyme A reductase inhibitor mechanism of action [...] 25 MG Orally Once a day Not-Taking Wripsao-Fskdcvkm-Smpkmsvfj- HC 1 % 1 application into the [...] Problem Acquired hammer toe of right foot (1670136229891 105) Other hammer toe(s) (acquired), right foot (M20.41) Active confirmed Problem Type 2 diabetes mellitus with peripheral angiopathy (273298600) Type 2 diabetes mellitus with diabetic peripheral angiopathy without gangrene (E11.51) Active confirmed Q7(A), Q8(2B), Q9(1B,2C) Problem Acquired hammer toe of left foot (2482634681036 103) Other hammer toe(s) (acquired), left foot (M20.42) Active confirmed Vital Signs Blood pressure diastolic 70 mm Hg 11/05/2024 Height 5 ft 3 in in 11/05/2024 Blood pressure systolic 140 mm Hg 11/05/2024 Weight 300 lbs 11/05/2024 BMI 53.14 kg/m2 11/05/2024 Procedures Procedure Date Ordered Date Performed Result Body Sit e 16751-ARZHLJZ NAIL, 6 OR MORE 01/19/2024 N/A 50535-Gsnbobor Plate 01/19/2024 N/A 07741-ERUSNDK NAIL, 6 OR MORE 08/06/2024 N/A 63283-UYFXSKH NAIL, 6 OR MORE 11/05/2024 N/A 77286-OACO SKIN LESION 11/05/2024 N/A Encounters Encounter Location Date Provider Diagnosis [address] [address] 01/19/2024 King Mera Type 2 diabetes mellitus with diabetic peripheral angiopathy without gangrene E11.51 ; Tinea unguium B35.1 ; Pain in right toe(s) M79.674 ; Pain in left toe(s) M79.675 ; Ingrown nail L60.0 and Xerosis of skin L85.3 [facility] [address] [address] 08/06/2024 King Tesfaye Type 2 diabetes mellitus with diabetic peripheral angiopathy without gangrene E11.51 ; Tinea unguium B35.1 ; Pain in right toe(s) M79.674 ; Pain in left toe(s) M79.675 and Xerosis of skin L85.3 [facility] [address] [address] 11/05/2024 King Tesfaye Type 2 diabetes mellitus with diabetic peripheral angiopathy without gangrene E11.51 ; Tinea unguium B35.1 ; Pain in right toe(s) M79.674 ; Pain in left toe(s) M79.675 ; Other hammer toe(s) (acquired), left foot M20.42 and Other hammer toe(s) (acquired), right foot M20.41 [facility] [address] [address] 01/02/2024 Sunni Guerrero [facility] [address] [address] 01/05/2024 King Tesfaye [facility] [address] [address] 02/15/2024 King Mera [facility] [address] [address] 03/05/2024 King Tesfaye [facility] [address] [address] 05/21/2024 King Mera [facility] [address] [address] 06/21/2024 King Tesfaye [facility] [address] [address] 06/27/2024 [facility] Mera [facility] [address] [address] [facility] [address] [address] 10/24/2024 King Tesfaye Assessments Encounter Date Diagnosis [...] Treatment Pending Test Test Name Order Date 38779-KKMOLWK NAIL, 6 OR MORE 10/25/2016 71109-ZHHGSUP NAIL, 6 OR MORE 01/19/2024 26515-OZQJCVX NAIL, 6 OR MORE 08/06/2024 36739-CDWMYCJ NAIL, 6 OR MORE 11/05/2024 59939-Ljkjzfuk Plate 01/19/2024 78847-Zaqepsdg Plate 10/25/2016 02904-SFCC SKIN LESION 11/05/2024 Next Appt Details Provider Name:King Tesfaye , 02/11/2025 01:00:00 PM, [address] [place], [address], Insurance Providers Payer Name Payer Address Payer Phone Subscriber Number Group Number Insured Name Patient Relationship to Insured Coverage Start Date Coverage End Date Medicare National [employer] [address] [facility] [place] [address] [id number] Sue Villanueva Self - patient is the insured Medical (General) History Medical History History ICD Code Stroke Hypertension Cholesterol Diabetes mellitus Surgical History Surgery Date(Month/Year) hysterectomy 1986 cholecystectomy 2004 Hospitalization History Reason Date(Month/Year) [facility] [facility] [place] [facility] [place] [facility]- fell, 2 day stay 11/2022
--- OUTSIDE RECORDS SUMMARY | 2024-12-17 14:17 | XMS_ITS ---
Author Organization [facility] Address [address] [place] [address] Care Team Providers Care Conveyor Line Bakery Worker Name Role Phone Awilda Brown Primary Care Provider King Camacho Unavailable [phone] Awilda Brown MD Unavailable Unavaila ble REASON FOR VISIT refill on rx Medications Medication SIG (Take, Route, Fr equency, Duration) Notes Start Date End Date Status Ammonium Lactate 12 % APPLY 1 APPLICATIO N TOPICALLY TWICE DAILY TO DRY AREAS OF THE FEET Active Encounters Encounter Location Date Provider Diagnosis [address] [address] 10/24/2024 King Tesfaye Plan Of Treatment Medication Medication Name Sig Start Date Stop Date Notes Ammonium Lactate 12 % APPLY 1 APPLICATIO N TOPICALLY TWICE DAILY TO DRY AREAS OF THE FEET Next Appt Details Provider Name:King Tesfaye , 02/11/2025 01:00:00 PM, [address] [place], [address], Progress Notes * Sue DE LA VEGADOB: [birth year] (79 yo F)Acc No.[id number]:10/24/2024 Patient:?Sue DE LA VEGA :1945???Age:79 Y???Sex:Female Address:[address] [place] [address] * Refills? Refill Ammonium Lactate Cream, 12 %, 140 Gram, APPLY 1 APPLICATION TOPICALLY TWICE DAILY TO DRY AREAS OF THE FEET, Refills=0 * true * Date:? Generated for Eli almonte/Prateek/Alf on:?12/17/2024 02:17 PM EDT
--- OUTSIDE RECORDS SUMMARY | 2024-12-17 14:17 | XMS_ITS | Clinical Summary ---
Author Organization [facility] Address [address] [address] Care Team Providers Care Knit Goods Cutter Hand Name Role Phone Unavailable Primary Care Provider [...]
== END 2024-12-17 13:11 | disposition home or self-care (01) ==
LOC: HO.HOS 11:53
PROVIDERS: PCP Internal Medicine; Visit Provider Orthopaedic Surgery
DX: S52.502A Unspecified fracture of the lower end of left radius, initial encounter for closed fracture (principal); S52.602A Unspecified fracture of lower end of left ulna, initial encounter for closed fracture; E11.9 Type 2 diabetes mellitus without complications; G81.94 Hemiplegia, unspecified affecting left nondominant side
CPT/HCPCS: 99204

== ENCOUNTER 2024-12-31 09:45 | Outpatient (REF) | payer MEDICARE, MEDICAID, SELFPAY ==
--- NOTE | ~2024-12-31 | XR_ITS ---
EXAMINATION: XR WRIST 3 OR MORE VIEWS LEFT HISTORY: M25.532 - Pain in left wrist COMPARISON: Comparison is made with the prior examination performed earlier in the day. FINDINGS: Three casted views of the left wrist are submitted. The bones are osteopenic. Again seen is a comminuted intra-articular fracture of the distal radial metaphysis and an additional fracture of the distal ulna metaphysis. Alignment is improved on the lateral view. The joint spaces are preserved. There is diffuse soft tissue swelling. XR/XR wrist LT min 3V IMPRESSION: Comminuted intra-articular fracture of the distal radial metaphysis and fracture of the distal ulna. Alignment is improved on the lateral view. Electronically signed by: Andre Desai MD 01/01/2025 08:47 AM EDT
--- NOTE | ~2024-12-31 | XR_ITS ---
EXAMINATION: XR WRIST 3 OR MORE VIEWS LEFT HISTORY: M25.532 - Pain in left wrist COMPARISON: Comparison is made with the prior examination dated 12/17/2024. FINDINGS: Six casted views of the left wrist are submitted. The fiberglass cast obscures fine bony detail. Again seen is a comminuted intra-articular fracture of the distal radius and an associated fracture of the distal ulna. Position and alignment of the fracture fragments is similar to the prior study given differences in technique and patient positioning. The joint spaces are preserved. There is diffuse soft tissue swelling. XR/XR wrist LT min 3V IMPRESSION: Comminuted fracture of the distal radial metaphysis and fracture of the distal ulna without significant change. Electronically signed by: Andre Desai MD 01/01/2025 08:45 AM EDT
--- OUTSIDE RECORDS SUMMARY | 2024-12-31 11:14 | XMS_ITS | Clinical Summary ---
Author Organization [facility] Facility Address [address] [address] Care Team Providers Care Principal Clerk Name Role Phone Unavailable Primary Care Provider [...]
--- OUTSIDE RECORDS SUMMARY | 2024-12-31 11:14 | XMS_ITS ---
Author Organization [facility] Address [address] [place] [address] Care Team Providers Care Communications Equipment Operator Name Role Phone Awilda Brown Primary Care Provider Pamelava King Mcghee Unavailable [phone] Stephanie AGUIRRE, Awilda Unavailable Unavaila ble Allergies Allergen (clinical drug ingredient) Drug/Non Drug Allergy documented on EMR Reaction Allergy Type Onset Date Status Vicodin Unknown Drug Allergy Active ezetimibe Zetia Unknown Drug Allergy Active amlodipine Amlodipine Unknown Drug Allergy Activ e azithromycin Azithromycin Unknown Drug Allergy A ctive codeine Codeine Unknown Drug Allergy Active hydrochlorothiazide Hydrochlorothiazide Unknown Drug Aller gy Active Substance with 3-pbbzbbv-5-methylglutar yl-coenzyme A reductase inhibitor mechanism of action [...] ed eye Ophthalmic Once a day Active Qujwzqy-Llocggzn-Vdtafunwv- HC 1 % 1 application into the [...] Problem Acquired hammer toe of right foot (4922220221856 105) Other hammer toe(s) (acquired), right foot (M20.41) Active confirmed Problem Acquired hammer toe of left foot (1647143065457 103) Other hammer toe(s) (acquired), left foot (M20.42) Active confirmed Vital Signs Height 5 ft 3 in in 11/05/2024 Weight 300 lbs 11/05/2024 BMI 53.14 kg/m2 11/05/2024 Blood pressure systolic 140 mm Hg 11/05/19 25 Blood pressure diastolic 70 mm Hg 025 Procedures Procedure Date Ordered Date Performed Result Body Sit e 63761-YCYXSCL NAIL, 6 OR MORE 11/05/2024 N/A 07906-CVOP SKIN LESION 11/05/2024 N/A Encounters Encounter Location Date Provider Diagnosis [facility] [place] [address] [place] [address] 11/05/2024 King Tesfaye Type 2 diabetes mellitus [...] INSTRUCTIONS.pdf) Pending Test Test Name Order Date 76024-FIUOYCA NAIL, 6 OR MORE 11/05/2024 72621-OXYA SKIN LESION 11/05/2024 Next Appt Details Follow Up: 3 Months, Reason: Provider Name:King Tesfaye , 02/11/2025 01:00:00 PM, [address] [place] [address], [phone], Procedure Notes * Category Sub-Category Detail [...] use of a nail nipper and/or dremel-type rubber grinder, to a more viable healthy nail [...] to maintain effectiveness in symptomatic relief - 56930 Keratoma Treatment Parring or Cutting o f [...] instrumentation by the physician of record - 98244, Q8 Progress Notes * Sue DE LA VEGADOB: [birth year] (79 yo F)Acc No.[id number]:11/05/2024 Progress Note Patient:?SARASue SHELL Provider:?King Tesfaye DPM :1945???Age:79 Y???Sex:Female D ate:11/05/2024 Address:[address] [place] [address], [facility] Pcp:Awilda Brown Subjective: * Chief Complaints: * [...] my 1986cholecystectomy 2005 * Hospitalization/Major Diagno stic Procedure:[place] [place] [place] - fell, 2 day stay 11/2022[facility] [place]- phunemonia 07/22/24 * Family History:?Mother: unkn own, [...] ?Exercise: no. ?Marital status: . 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 ???Drug/Alcohol:?AUDIT-C (Standard)?Did you have a drink containing alcohol in the past year??No ?Points?0 ?Interpretation?Negative * Medications:?TakingOlopatadi ne HCl 0.2 % Solution 1 drop into affected eye Ophthalmic Once a day Wdfmytj-Jqrtyzba-Rrjslsdah-HC 1 % Ointment 1 application into the [...] affected eye Ophthalmic Once a day Taking Diykibx-Moywpnrs-Krcxgcrnl-HC 1 % Ointment 1 application into the [...] mellitus with diabetic peripheral angiopathy without gangrene?Procedure: 65458-LJOV SKIN LESION 3.?Tinea unguium?Procedure: 40473-ZPIMKLL NAIL, 6 OR MORE * Procedures:?Debride Nail [...] use of a nail nipper and/or dremel-type rubber grinder, to a more viable healthy nail [...] to maintain effectiveness in symptomatic relief - 21558.?Keratoma Treatment:?Parring or Cutting of Benign Hyperkeratotic Lesion(s)?(-55) [...] instrumentation by the physician of record - 47828, Q8.? * Procedure Codes:?23132 DEBRI DE NAIL, 6 OR MORE, Modifiers: XS 78015 TRIM SKIN LESION, Modifiers: XS , Q8 [...] Tesfaye DPM Date:?2024 Generated for Eli almonte/Prateek/Alf on:?12/31/2024 11:13 AM EDT History and Physical Notes * HPI [...] at, SUB MTH (s), 5, Right Orthopedic FOOTWEAR EVALUATION: worn, non-supportive DIGITAL DEFORMITIES: Digital contracture , [...]
--- OUTSIDE RECORDS SUMMARY | 2024-12-31 11:14 | XMS_ITS ---
Author Organization [facility] Address [address] [place] [address] Care Team Providers Care Silica Filter Operator Name Role Phone Awilad Brown Primary Care Provider King Camacho Unavailable [phone] Awilda Brown MD Unavailable Unavaila ble REASON FOR VISIT refill on rx Medications Medication SIG (Take, Route, Fr equency, Duration) Notes Start Date End Date Status Ammonium Lactate 12 % APPLY 1 APPLICATIO N TOPICALLY TWICE DAILY TO DRY AREAS OF THE FEET Active Encounters Encounter Location Date Provider Diagnosis [address] [address] 10/24/2024 King Tesfaye Plan Of Treatment Medication Medication Name Sig Start Date Stop Date Notes Ammonium Lactate 12 % APPLY 1 APPLICATIO N TOPICALLY TWICE DAILY TO DRY AREAS OF THE FEET Next Appt Details Provider Name:King Tesfaye , 02/11/2025 01:00:00 PM, [address] [place], [address], Progress Notes * Sue DE LA VEGADOB: [birth year] (79 yo F)Acc No.[id number]:10/24/2024 Patient:?Sue DE LA VEGA :1945???Age:79 Y???Sex:Female Address:[address] [place] [address] * Refills? Refill Ammonium Lactate Cream, 12 %, 140 Gram, APPLY 1 APPLICATION TOPICALLY TWICE DAILY TO DRY AREAS OF THE FEET, Refills=0 * true * Date:? Generated for Eli almonte/Prateek/Alf on:?12/31/2024 11:13 AM EDT
--- OUTSIDE RECORDS SUMMARY | 2024-12-31 11:14 | XMS_ITS | Patient Health Record ---
Author Organization [facility] Address [address] [place] [address] Care Team Providers Care Utilization Specialist Name Role Phone Awilda Brown Primary Care Provider King Camacho Unavailable [phone] Awilda Brown MD Unavailable UnavailSunni Taylor Unavailable [phone] Allergies Allergen (clinical drug ingredient) Drug/Non Drug Allergy documented on EMR Reaction Allergy Type Onset Date Status Vicodin Unknown Drug Allergy Active ezetimibe Zetia Unknown Drug Allergy Active amlodipine Amlodipine Unknown Drug Allergy Activ e azithromycin Azithromycin Unknown Drug Allergy A ctive codeine Codeine Unknown Drug Allergy Active hydrochlorothiazide Hydrochlorothiazide Unknown Drug Aller gy Active Substance with 0-btnyrjh-7-methylglutar yl-coenzyme A reductase inhibitor mechanism of action [...] 25 MG Orally Once a day Not-Taking Tujcfsj-Bgcgtlwq-Igrdmiaoz- HC 1 % 1 application into the [...] Problem Acquired hammer toe of right foot (9274672676901 105) Other hammer toe(s) (acquired), right foot (M20.41) Active confirmed Problem Type 2 diabetes mellitus with peripheral angiopathy (417144458) Type 2 diabetes mellitus with diabetic peripheral angiopathy without gangrene (E11.51) Active confirmed Q7(A), Q8(2B), Q9(1B,2C) Problem Acquired hammer toe of left foot (0438319857329 103) Other hammer toe(s) (acquired), left foot (M20.42) Active confirmed Vital Signs Blood pressure diastolic 70 mm Hg 11/05/2024 Height 5 ft 3 in in 11/05/2024 Blood pressure systolic 140 mm Hg 11/05/2024 Weight 300 lbs 11/05/2024 BMI 53.14 kg/m2 11/05/2024 Procedures Procedure Date Ordered Date Performed Result Body Sit e 25851-KXHOMFX NAIL, 6 OR MORE 01/19/2024 N/A 84644-Vcbnswas Plate 01/19/2024 N/A 78001-JXNJJAG NAIL, 6 OR MORE 08/06/2024 N/A 20906-OYYRASG NAIL, 6 OR MORE 11/05/2024 N/A 36796-HDFD SKIN LESION 11/05/2024 N/A Encounters Encounter Location Date Provider Diagnosis [address] [address] 01/19/2024 King Mera Type 2 diabetes mellitus with diabetic peripheral angiopathy without gangrene E11.51 ; Tinea unguium B35.1 ; Pain in right toe(s) M79.674 ; Pain in left toe(s) M79.675 ; Ingrown nail L60.0 and Xerosis of skin L85.[address] [facility] [address] [address] 08/06/2024 King Tesfaye Type 2 diabetes mellitus with diabetic peripheral angiopathy without gangrene E11.51 ; Tinea unguium B35.1 ; Pain in right toe(s) M79.674 ; Pain in left toe(s) M79.675 and Xerosis of skin L85.[address] [facility] [address] [address] 11/05/2024 King Tesfaye Type 2 diabetes mellitus with diabetic peripheral angiopathy without gangrene E11.51 ; Tinea unguium B35.1 ; Pain in right toe(s) M79.674 ; Pain in left toe(s) M79.675 ; Other hammer toe(s) (acquired), left foot M20.42 and Other hammer toe(s) (acquired), right foot M20.41 [facility] [address] [address] 01/02/2024 Sunni Guerrero [facility] [address] [address] 01/05/2024 King Tesfaye [facility] [address] [address] 02/15/2024 King Mera [facility] [address] [address] 03/05/2024 King Tesfaye [facility] [address] [address] 05/21/2024 King Mera [facility] [address] [address] 06/21/2024 King Tesfaye [facility] [address] [address] 06/27/2024 [facility] Mera [facility] [address] [address] [facility] [address] [address] 10/24/2024 King Tesfaye Assessments Encounter Date Diagnosis [...] Treatment Pending Test Test Name Order Date 58096-FIKSYCV NAIL, 6 OR MORE 10/25/2016 96672-JIOSNGD NAIL, 6 OR MORE 01/19/2024 03968-RWJINAU NAIL, 6 OR MORE 08/06/2024 88390-OEMKXES NAIL, 6 OR MORE 11/05/2024 34016-Fjjwnzdo Plate 01/19/2024 16780-Bckozobl Plate 10/25/2016 27037-EDIX SKIN LESION 11/05/2024 Next Appt Details Provider Name:King Tesfaye , 02/11/2025 01:00:00 PM, [address] [place], [address], Insurance Providers Payer Name Payer Address Payer Phone Subscriber Number Group Number Insured Name Patient Relationship to Insured Coverage Start Date Coverage End Date Medicare National [employer] [address] [place] [address] [id number] Sue Villanueva Self - patient is the insured Medical (General) History Medical History History ICD Code Stroke Hypertension Cholesterol Diabetes mellitus Surgical History Surgery Date(Month/Year) hysterectomy 1986 cholecystectomy 2004 Hospitalization History Reason Date(Month/Year) [facility]- chest pains 04/2021 [facility] [place] 06/2016 [facility] [place] phunemonia 07/22/24 [facility]- fell, 2 day stay 11/2022
--- OUTSIDE RECORDS SUMMARY | 2024-12-31 11:14 | XMS_ITS ---
Author Organization [facility] Address [address] [place] [address] Care Team Providers Care Retail Loan Officer Name Role Phone Awilda Brown Primary Care Provider King Camacho Unavailable [phone] Awilda Brown MD Unavailable Unavaila ble Allergies Allergen (clinical drug ingredient) Drug/Non Drug Allergy documented on EMR Reaction Allergy Type Onset Date Status Vicodin Unknown Drug Allergy Active ezetimibe Zetia Unknown Drug Allergy Active amlodipine Amlodipine Unknown Drug Allergy Activ e azithromycin Azithromycin Unknown Drug Allergy A ctive codeine Codeine Unknown Drug Allergy Active hydrochlorothiazide Hydrochlorothiazide Unknown Drug Aller gy Active Substance with 8-ulhjplx-8-methylglutar yl-coenzyme A reductase inhibitor mechanism of action [...] Severe 0.3 % as directed Ophthalmic Active Cpealtz-Vbaroazj-Uvxtcewqs-H C 1 % 1 application into the [...] Ordered Date Performed Result Body Sit e 97482-RNNVPXI NAIL, 6 OR MORE 08/06/2024 N/A Encounters Encounter Location Date Provider Diagnosis [facility] [address] [address] 08/06/2024 King Tesfaye Type 2 diabetes mellitus [...] Treatment Pending Test Test Name Order Date 76891-DZKIYDO NAIL, 6 OR MORE 08/06/2024 Next Appt Details Follow Up: 3 Months, Reason: Provider Name:King Tesfaye , 02/11/2025 01:00:00 PM, [address] [place] [address], [phone], Procedure Notes * Category Sub-Category Detail Notes [...] of a nail nipper and/or dremel-type grinder operator tool, to a more viable healthy nail plate or bed tissue 6-10. Silver nitrate used for any petechial bleeding as necessary. Definitive antifungal treatment options have been reviewed and discussed with the patient. The patient chooses, no pharmaceutical tx - 96591 Progress Notes * Sue DE LA VEGA: [birth year] (79 yo F)Acc No.[id number]:08/06/2024 Progress Note Patient:?Sue DE LA VEGA Provider:?King Tesfaey DPM :1945???Age:78 Y???Sex:Female D ate:08/06/2024 Address:[address] [place], [place] [id number] Pcp:Awilda Brown Subjective: * Chief Complaints: * [...] my 1986cholecystectomy 2004 * Hospitalization/Major Diagno stic Procedure[place] [place] [place] chest [place] - fell, 2 day stay 11/20[place] [place] * Family History:?Mother: unkn own, Heart attack, Poor circulation, diagnosed with Unspecified heart disease.?Father: , prostate cancer.?Spouse: alive.? * Social History:?Tobacco Use:?Tobacco Use/Smoking?Are you a:?nonsmoker ?Additional Findings: Tobacco Non-User?Current non-smoker ?Tobacco use other than smoking?Are you an other tobacco user??No ???Miscellaneous:?Caffeine: yes, frequency:, 1-2 cups per day. ?Children: yes. ?Exercise: no. ?Marital status: . 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 * Medications:?TakingOlopatadi ne HCl 0.2 % Solution 1 drop into affected eye Ophthalmic Once a day Ypvzapi-Sqfoqhqf-Apvuxgwzo-HC 1 % Ointment 1 application into the [...] affected eye Ophthalmic Once a day Taking Boktbhh-Yftayrpo-Ahuyascmj-HC 1 % Ointment 1 application into the [...] of a nail nipper and/or dremel-type grinder operator tool, to a more viable healthy nail plate or bed tissue 6-10. Silver nitrate used for any petechial bleeding as necessary. Definitive antifungal treatment options have been reviewed and discussed with the patient. The patient chooses, no pharmaceutical tx - 28463.? * Procedure Codes:?10281 DEBRI DE NAIL, 6 OR MORE * [...] Tesfaye DPM Date:?2023 Generated for Eli almonte/Prateek/Josiassmitting on:?12/31/2024 11:13 AM EDT History and Physical [...] stocking fashion, no fissure(s) present, B/L Orthopedic FOOTWEAR EVALUATION: good condition MUSCLE STRENGTH: 5/5 all groups [...]
== END 2024-12-31 09:46 | disposition home or self-care (01) ==
LOC: HO.HOSX 09:45
PROVIDERS: Visit Provider Orthopaedic Surgery
DX: S52.572D Other intraarticular fracture of lower end of left radius, subsequent encounter for closed fracture with routine healing (principal); S52.602D Unspecified fracture of lower end of left ulna, subsequent encounter for closed fracture with routine healing; G81.94 Hemiplegia, unspecified affecting left nondominant side; M25.532 Pain in left wrist
CPT/HCPCS: 29075; 73110; 99212

== ENCOUNTER 2024-12-31 13:49 | Outpatient (AMB) | payer MEDICARE, MEDICAID, SELFPAY ==
[2024-12-31 14:00] VITALS: BMI 45.2
--- NOTE | 2024-12-31 14:00 | A.OFFVIS_ITS ---
Vital Signs 12/31/24 14:00 Height 5 ft 3 in Weight 255 lb BMI 45.2 Intake Visit Reasons: OV- Left Distal radius fx Intake Note: Sue 79 yr old female presents today for her follow up visit for her Left distal ulna fracture, S/P fall DOI: 12/10/24. Splint removed and xays updated. Patient is aware her hand will be casted. Allergies azithromycin [AZITHROMYCIN] Allergy (Unknown, Verified 12/31/24 14:18) ITCHY acetaminophen [From Vicodin] Allergy (Verified 12/31/24 14:18) Unknown amlodipine Allergy (Verified 12/31/24 14:18) Unknown ezetimibe [From Zetia] Allergy (Verified 12/31/24 14:18) Unknown hydrochlorothiazide Allergy (Verified 12/31/24 14:18) Unknown hydrocodone [From Vicodin] Allergy (Verified 12/31/24 14:18) Unknown Tieszhm-ACX-KhR Reductase Inhibitor Allergy (Verified 12/31/24 14:18) Unknown codeine [CODEINE] Adverse Reaction (Unknown, Verified 12/31/24 14:18) NAUSEA codeine Allergy (Unknown, Uncoded 12/31/24 14:18) facial flushing/vomiting HPI HPI OV- Left Distal radius fx: Details: Sue is an 79 year old right hand dominant Diabetic woman who returns for her left distal radius & distal ulna fractures, after a fall, DOI: 12/10/24. She has a Hx of CVA & left hemiplegia. She says she fell while walking to the bathroom. She is seen with her worker today. She complains of pain in her wrist. She says she has had no functional use of her left hand since her stroke many years ago. She is seen in her fiberglass splint, extending from her elbow to her fingertips. [facility] Medical History Peripheral neuropathy Hypertension Dysphagia Gastroesophageal reflux disease Seizure disorder Non-insulin dependent type 2 diabetes mellitus Mood disorder Paralysis CVA (cerebral vascular accident) Social History Household Members: Other Housing: Other Housing Other:: long-term Do you presently have visiting nurse or other home services: No Alcohol intake: never Patient Tobacco Use Status: Never used Tobacco Advance Directives Date on File: 07/26/24 service: No Physical Exam Vital Signs: BMI result Body Mass Index 45.2 Extrem Other: Evaluation of Left Upper Extremity: The patient is alert, oriented, and in no acute distress The patient is 5 ft 3 and 255 lb. She is in a wheelchair today. She is seen today in a fiberglass splint, which does not extend fully to the elbow, placed by the ED. She has flexion contractures of all DIP & PIP joints of her left hand, secondary to Hemiplegia following a CVA. Radiographs: 3 views of the left wrist were taken today, viewed, and compared to post- reduction radiographs from 12/10/24. They show a distal radius fracture, comminuted, intra-articular, as well as a distal ulna fracture. Improved alignment following reduction, and she appears to have maintained satisfactory fracture alignment since the day of her reduction. PIP & DIP joint flexion contractures of all digits. Post splinting radiographs show satisfactory fracture alignment Assessment & Plan Assessment & Plan (1) Distal radius fracture, left: Code(s): S52.502A - Unspecified fracture of the lower end of left radius, initial encounter for closed fracture Category: Medical (2) Fracture of distal end of left ulna: Code(s): S52.602A - Unspecified fracture of lower end of left ulna, initial encounter for closed fracture Category: Medical (3) Non-insulin dependent type 2 diabetes mellitus: Code(s): E11.9 - Type 2 diabetes mellitus without complications Category: Medical (4) Hemiplegia affecting left nondominant side: Code(s): G81.94 - Hemiplegia, unspecified affecting left nondominant side Category: Medical Plan Assessment & Plan: 1. Left distal radius fracture, comminuted, intra-articular S/P fall, DOI: 12/10/24 Reduced in ED: 12/10/24 2. Left distal ulna fracture, S/P fall DOI: 12/10/24 She has a Hx of CVA & left-sided Hemiplegia I educated her about this condition I discussed operative and non-operative treatment options I recommend we manage this non-operatively, and she is in agreement She was placed in a short arm cast, to be worn for the next 4 weeks She should keep her wrist elevated at or above heart level when at rest It sounds like they had her stay in her bed 24/04 since this injury. She should be out of bed and in a chair at least once day, and I wrote this in my instructions. Her anesthesiologists' assistant notes that she now requires 3 people to assist her to move to a chair, and they were able to do so today.. I believe that is likely to continue for the time being as she does need somebody to attend to her left upper extremity and protect it when she is being moved. She will follow up in 3 weeks with me, with X-rays, 3V L wrist, OOP. Please note that greater than 60 minutes was spent with this patient going over the history, evaluating the patient and radiographs, formulating possible treatment options, discussing them with the patient, and documenting the visit. Scribed for Adrienne Gong MD by Tl Cook, medical administrator, on 12/31/24 at 2:20 PM, EST. Orders: Orders XR wrist LT min 3V 12/31/24 M25.532 - Pain in left wrist XR wrist LT min 3V 12/31/24 M25.532 - Pain in left wrist Coding Level of Care Code Global (70170) Diagnoses Distal radius fracture, left S52.502A Fracture of distal end of left ulna S52.602A Non-insulin dependent type 2 diabetes mellitus E11.9 Hemiplegia affecting left nondominant side G81.94
--- OUTSIDE RECORDS SUMMARY | 2024-12-31 16:25 | XMS_ITS | Clinical Summary ---
Author Organization [facility] Facility Address [address] [address] Care Team Providers Care Plastic Molder Name Role Phone Unavailable Primary Care Provider [...]
== END 2024-12-31 15:24 | disposition home or self-care (01) ==
LOC: HO.HOS 13:49
PROVIDERS: Visit Provider Orthopaedic Surgery
DX: S52.502A Unspecified fracture of the lower end of left radius, initial encounter for closed fracture (principal); S52.602A Unspecified fracture of lower end of left ulna, initial encounter for closed fracture; E11.9 Type 2 diabetes mellitus without complications; G81.94 Hemiplegia, unspecified affecting left nondominant side
CPT/HCPCS: 29075; 99213

== ENCOUNTER → 2024-12-31 13:51 | Outpatient (BNV) | payer MEDICARE, MEDICAID, SELFPAY | PROVIDERS: Visit Provider Radiology Diagnostic Radiology | DX: S52.502A Unspecified fracture of the lower end of left radius, initial encounter for closed fracture (principal); S52.602A Unspecified fracture of lower end of left ulna, initial encounter for closed fracture | CPT/HCPCS: 73110 ==

== ENCOUNTER 2025-01-22 11:05 | Outpatient (REF) | payer MEDICARE, MEDICAID, SELFPAY ==
--- OUTSIDE RECORDS SUMMARY | 2025-01-23 13:07 | XMS_ITS | Clinical Summary ---
Author Organization [facility] Facility Address [address] [address] Care Team Providers Care Ground Products Director Name Role Phone Unavailable Primary Care Provider [...] Due Date Last Done Comments Pneumococcal Vaccine: 50+ Ye ars (1 of - PCV) 1994 Influenza Vaccine (Season Ended) 2025 Hepatitis B Vaccine Aged Out No longe r eligible based on patient's age to complete this topic Insurance [place]
--- OUTSIDE RECORDS SUMMARY | 2025-01-23 13:07 | XMS_ITS ---
[facility] Address [address] [place] [address] Care Team Providers Care Baccarat Dealer Name Role Phone Awilda Brown Primary Care Provider King Camacho Unavailable [phone] Awilda Brown MD Unavailable Unavaila ble Allergies Allergen (clinical drug ingredient) Drug/Non Drug Allergy documented on EMR Reaction Allergy Type Onset Date Status Vicodin Unknown Drug Allergy Active ezetimibe Zetia Unknown Drug Allergy Active amlodipine Amlodipine Unknown Drug Allergy Activ e azithromycin Azithromycin Unknown Drug Allergy A ctive codeine Codeine Unknown Drug Allergy Active hydrochlorothiazide Hydrochlorothiazide Unknown Drug Aller gy Active Substance with 5-takqobx-2-methylglutar yl-coenzyme A reductase inhibitor mechanism of action [...] Severe 0.3 % as directed Ophthalmic Active Weftwgg-Vevjvuuh-Fsgxqalcm-H C 1 % 1 application into the [...] Ordered Date Performed Result Body Sit e 63032-IHHJJQX NAIL, 6 OR MORE 08/06/2024 N/A Encounters Encounter Location Date Provider Diagnosis [facility] [address] [address] 08/06/2024 King Tesfaye Type 2 diabetes mellitus [...] Treatment Pending Test Test Name Order Date 05414-KSOUMQN NAIL, 6 OR MORE 08/06/2024 Next Appt Details Follow Up: 3 Months, Reason: Provider Name:King Tesfaye , 02/11/2025 01:00:00 PM, [address] [place] [address], [phone], Procedure Notes * Category Sub-Category Detail Notes Debride Nail 6-10 Nail debridement Performance o f this nail treatment by a nonprofessional would put this patients foot and overall health at risk. Therefore, nail debridement was performed extensively to reduce/remove overall nail length, girth, thickness, subungual debris, and necrotic tissue, by manual and/or electrical means through the use of a nail nipper and/or dremel-type wheel grinder, to a more viable healthy nail plate or bed tissue 6-10. Silver nitrate used for any petechial bleeding as necessary. Definitive antifungal treatment options have been reviewed and discussed with the patient. The patient chooses, no pharmaceutical tx - 28676 Progress Notes * Sue DE LA VEGA: [birth year] (79 yo F)Acc No.[id number]:08/06/2024 Progress Note Patient:?Sue DE LA VEGA Provider:?King Tesfaye DPM :1945???Age:78 Y???Sex:Female D ate:08/06/2024 Address:[address] [place], [place] [id number] Pcp:Awilda Brown Subjective: * Chief Complaints: * [...] my 1986cholecystectomy 2004 * Hospitalization/Major Diagno stic Procedure:[place] [place] [place] - fell, 2 day stay 11/2022[facility] [place] 07/22/24 * Family History:?Mother: unkn own, Heart attack, Poor circulation, diagnosed with Unspecified heart disease.?Father: , prostate cancer.?Spouse: alive.? * Social History:?Tobacco Use:?Tobacco Use/Smoking?Are you a:?nonsmoker ?Additional Findings: Tobacco Non-User?Current non-smoker ?Tobacco use other than smoking?Are you an other tobacco user??No ???Miscellaneous:?Caffeine: yes, frequency:, 1-2 cups per day. ?Children: yes. ?Exercise: no. ?Marital status: . 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 * Medications:?TakingOlopatadi ne HCl 0.2 % Solution 1 drop into affected eye Ophthalmic Once a day Kbxyvpi-Wwziqjft-Lcpfceuxz-HC 1 % Ointment 1 application into the [...] affected eye Ophthalmic Once a day Taking Kftdzcc-Tuyabtha-Izskotewf-HC 1 % Ointment 1 application into the [...] use of a nail nipper and/or dremel-type wheel grinder, to a more viable healthy nail plate or bed tissue 6-10. Silver nitrate used for any petechial bleeding as necessary. Definitive antifungal treatment options have been reviewed and discussed with the patient. The patient chooses, no pharmaceutical tx - 40922.? * Procedure Codes:?49758 DEBRI DE NAIL, 6 OR MORE * [...] Tesfaye DPM Date:?2023 Generated for Eli almonte/Prateek/Josiassmitting on:?01/23/2025 01:07 PM EDT History and Physical Notes * [...]
--- OUTSIDE RECORDS SUMMARY | 2025-01-23 13:07 | XMS_ITS ---
Author Organization [facility] Address [address] [place] [address] Care Team Providers Care Middle School Coach Name Role Phone Awilda Brown Primary Care Provider Pamelava King Mcghee Unavailable [phone] Stephanie AGUIRRE, Awilda Unavailable Unavaila ble Allergies Allergen (clinical drug ingredient) Drug/Non Drug Allergy documented on EMR Reaction Allergy Type Onset Date Status Vicodin Unknown Drug Allergy Active ezetimibe Zetia Unknown Drug Allergy Active amlodipine Amlodipine Unknown Drug Allergy Activ e azithromycin Azithromycin Unknown Drug Allergy A ctive codeine Codeine Unknown Drug Allergy Active hydrochlorothiazide Hydrochlorothiazide Unknown Drug Aller gy Active Substance with 9-jpityji-8-methylglutar yl-coenzyme A reductase inhibitor mechanism of action [...] ed eye Ophthalmic Once a day Active Xfurrqi-Kuscowos-Jmyoupjfl- HC 1 % 1 application into the [...] Problem Acquired hammer toe of right foot (3333571113855 105) Other hammer toe(s) (acquired), right foot (M20.41) Active confirmed Problem Acquired hammer toe of left foot (3050512447203 103) Other hammer toe(s) (acquired), left foot (M20.42) Active confirmed Vital Signs Height 5 ft 3 in in 11/05/2024 Weight 300 lbs 11/05/2024 BMI 53.14 kg/m2 11/05/2024 Blood pressure systolic 140 mm Hg 11/05/19 25 Blood pressure diastolic 70 mm Hg 025 Procedures Procedure Date Ordered Date Performed Result Body Sit e 88564-VRDGKIX NAIL, 6 OR MORE 11/05/2024 N/A 56829-IQII SKIN LESION 11/05/2024 N/A Encounters Encounter Location Date Provider Diagnosis [facility] [place] [address] [place] [address] 11/05/2024 King Tesfaye Type 2 diabetes mellitus [...] INSTRUCTIONS.pdf) Pending Test Test Name Order Date 29072-IYSPHCH NAIL, 6 OR MORE 11/05/2024 56501-AWRE SKIN LESION 11/05/2024 Next Appt Details Follow Up: 3 Months, Reason: Provider Name:King Tesfaye , 02/11/2025 01:00:00 PM, [address] [place] [address], [phone], Procedure Notes * Category Sub-Category Detail [...] use of a nail nipper and/or dremel-type sand mill grinder, to a more viable healthy nail [...] to maintain effectiveness in symptomatic relief - 35108 Keratoma Treatment Parring or Cutting o f [...] instrumentation by the physician of record - 99177, Q8 Progress Notes * Sue DE LA VEGADOB: [birth year] (79 yo F)Acc No.[id number]:11/05/2024 Progress Note Patient:?SARASue SHELL Provider:?King Tesfaye DPM :1945???Age:79 Y???Sex:Female D ate:11/05/2024 Address:[address] [place] [address], [id number] Pcp:Awilda Brown Subjective: * Chief Complaints: * [...] my 1986cholecystectomy 2005 * Hospitalization/Major Diagno stic Procedure:[place] [place] [place] chest pains - fell, 2 day stay 11/20[place] [place] * Family History:?Mother: unkn own, [...] no. ?Marital status: . 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 ???Drug/Alcohol:?AUDIT-C (Standard)?Did you have a drink containing alcohol in the past year??No ?Points?0 ?Interpretation?Negative * Medications:?TakingOlopatadi ne HCl 0.2 % Solution 1 drop into affected eye Ophthalmic Once a day Zputnmf-Memejstt-Djvbrvfkx-HC 1 % Ointment 1 application into the [...] affected eye Ophthalmic Once a day Taking Kqgigki-Cpczkazv-Hqytqahcy-HC 1 % Ointment 1 application into the [...] mellitus with diabetic peripheral angiopathy without gangrene?Procedure: 73237-YYTQ SKIN LESION 3.?Tinea unguium?Procedure: 26574-IEVNAPK NAIL, 6 OR MORE * Procedures:?Debride Nail [...] use of a nail nipper and/or dremel-type sand mill grinder, to a more viable healthy nail [...] to maintain effectiveness in symptomatic relief - 09097.?Keratoma Treatment:?Parring or Cutting of Benign Hyperkeratotic Lesion(s)?(-55) [...] instrumentation by the physician of record - 00914, Q8.? * Procedure Codes:?02115 DEBRI DE NAIL, 6 OR MORE, Modifiers: XS 45512 TRIM SKIN LESION, Modifiers: XS , Q8 [...] Tesfaye DPM Date:?2024 Generated for Eli almonte/Prateek/Alf on:?01/23/2025 01:06 PM EDT History and Physical Notes * [...]
--- OUTSIDE RECORDS SUMMARY | 2025-01-23 13:07 | XMS_ITS | Patient Health Record ---
Author Organization [facility] Address [address] [place] [address] Care Team Providers Care Family Law Specialist Name Role Phone Awilda Brown Primary Care Provider King Camacho Unavailable [phone] Awilda Brown MD Unavailable UnavailSunni Taylor Unavailable [phone] Allergies Allergen (clinical drug ingredient) Drug/Non Drug Allergy documented on EMR Reaction Allergy Type Onset Date Status Vicodin Unknown Drug Allergy Active ezetimibe Zetia Unknown Drug Allergy Active amlodipine Amlodipine Unknown Drug Allergy Activ e azithromycin Azithromycin Unknown Drug Allergy A ctive codeine Codeine Unknown Drug Allergy Active hydrochlorothiazide Hydrochlorothiazide Unknown Drug Aller gy Active Substance with 9-rodhdyl-6-methylglutar yl-coenzyme A reductase inhibitor mechanism of action [...] 25 MG Orally Once a day Not-Taking Upwibya-Memvajsv-Oxlivigqn- HC 1 % 1 application into the [...] Problem Acquired hammer toe of right foot (7130929518921 105) Other hammer toe(s) (acquired), right foot (M20.41) Active confirmed Problem Type 2 diabetes mellitus with peripheral angiopathy (707082806) Type 2 diabetes mellitus with diabetic peripheral angiopathy without gangrene (E11.51) Active confirmed Q7(A), Q8(2B), Q9(1B,2C) Problem Acquired hammer toe of left foot (3211531273170 103) Other hammer toe(s) (acquired), left foot (M20.42) Active confirmed Vital Signs Blood pressure diastolic 70 mm Hg 11/05/2024 Height 5 ft 3 in in 11/05/2024 Blood pressure systolic 140 mm Hg 11/05/2024 Weight 300 lbs 11/05/2024 BMI 53.14 kg/m2 11/05/2024 Procedures Procedure Date Ordered Date Performed Result Body Sit e 02249-YQIFUSP NAIL, 6 OR MORE 08/06/2024 N/A 23228-YFXHDPV NAIL, 6 OR MORE 11/05/2024 N/A 96888-RXKG SKIN LESION 11/05/2024 N/A Encounters Encounter Location Date Provider Diagnosis [facility] [address] [address] 08/06/2024 King Tesfaye Type 2 diabetes mellitus with diabetic peripheral angiopathy without gangrene E11.51 ; Tinea unguium B35.1 ; Pain in right toe(s) M79.674 ; Pain in left toe(s) M79.675 and Xerosis of skin L85.[address] [facility] [address] 11/05/2024 King Tesfaye Type 2 diabetes mellitus with diabetic peripheral angiopathy without gangrene E11.51 ; Tinea unguium B35.1 ; Pain in right toe(s) M79.674 ; Pain in left toe(s) M79.675 ; Other hammer toe(s) (acquired), left foot M20.42 and Other hammer toe(s) (acquired), right foot M20.[address] [facility] [address] 02/15/2024 King Mera [facility] [address] [address] 03/05/2024 King Mera [facility] [address] [address] 05/21/2024 King Mera [facility] [address] [address] 06/21/2024 King Mera [facility] [address] [address] 06/27/2024 King Mera [facility] [address] [facility] [address] 10/24/2024 King Tesfaye Assessments Encounter Date Diagnosis [...] M79.674) 11/05/2024 Tinea unguium (ICD-10 - B35.1) 08/06/2024 Pain in left toe(s) (ICD-10 - M79.675) 11/05/2024 Pain in right toe(s) (ICD-10 - M79.674) 11/05/2024 Pain in left toe(s) (ICD-10 - M79.675) 08/06/2024 Xerosis of skin (ICD-10 - L85.3) 11/05/2024 Other hammer toe(s) (acquired), left foot (ICD-10 - M20.42) 11/05/2024 Other hammer toe(s) (acquired), right foot (ICD-10 - M20.41) Patient Educated with: DIABETIC FOOT CARE INSTRUCTIONS.p df (DIABETIC FOOT CARE INSTRUCTIONS.p df) Plan Of Treatment Pending Test Test Name Order Date 40577-VLVLJWF NAIL, 6 OR MORE 10/25/2016 05748-NOGYSFY NAIL, 6 OR MORE 01/19/2024 90292-KUFEGDW NAIL, 6 OR MORE 08/06/2024 31124-QWSOLQY NAIL, 6 OR MORE 11/05/2024 77063-Ndhfzkpc Plate 01/19/2024 75716-Foizuihv Plate 10/25/2016 56560-PPKY SKIN LESION 11/05/2024 Next Appt Details Provider Name:King Burnham Mera , 02/11/2025 01:00:00 PM, [address] [facility], [place], [address], Insurance Providers Payer Name Payer Address Payer Phone Subscriber Number Group Number Insured Name Patient Relationship to Insured Coverage Start Date Coverage End Date Medicare National [employer]t [employer] [address] [facility] [place] [address] [id number] Sue Villanueva Self - patient is the insured Medical (General) History Medical History History ICD Code Stroke Hypertension Cholesterol Diabetes mellitus Surgical History Surgery Date(Month/Year) hysterectomy 1986 cholecystectomy 2004 Hospitalization History Reason Date(Month/Year) [facility]- chest pains 04/2021 [facility] [place] 06[place]2016 [facility] [place] phunem[place] 07/22/24 [facility]- fell, 2 day stay 11/2022
--- OUTSIDE RECORDS SUMMARY | 2025-01-23 13:07 | XMS_ITS ---
Author Organization [facility] Address [address] [place] [address] Care Team Providers Care Machine Tech Name Role Phone Awilda Brown Primary Care Provider King Camacho Unavailable [phone] Awilda Brown MD Unavailable Unavaila ble REASON FOR VISIT refill on rx Medications Medication SIG (Take, Route, Fr equency, Duration) Notes Start Date End Date Status Ammonium Lactate 12 % APPLY 1 APPLICATIO N TOPICALLY TWICE DAILY TO DRY AREAS OF THE FEET Active Encounters Encounter Location Date Provider Diagnosis [address] [address] 10/24/2024 King Tesfaye Plan Of Treatment Medication Medication Name Sig Start Date Stop Date Notes Ammonium Lactate 12 % APPLY 1 APPLICATIO N TOPICALLY TWICE DAILY TO DRY AREAS OF THE FEET Next Appt Details Provider Name:King Tesfaye , 02/11/2025 01:00:00 PM, [address] [place], [address], Progress Notes * Sue DE LA VEGADOB: [birth year] (79 yo F)Acc No.[id number]:10/24/2024 Patient:?Sue DE LA VEGA :1945???Age:79 Y???Sex:Female Address:[address] [place] [address] * Refills? Refill Ammonium Lactate Cream, 12 %, 140 Gram, APPLY 1 APPLICATION TOPICALLY TWICE DAILY TO DRY AREAS OF THE FEET, Refills=0 * true * Date:? Generated for Eli almonte/Prateek/Alf on:?01/23/2025 01:06 PM EDT
== END 2025-01-22 11:06 | disposition home or self-care (01) ==
LOC: HO.HOSX 11:05
PROVIDERS: Visit Provider Orthopaedic Surgery
DX: Z13.89 Encounter for screening for other disorder (principal)

== ENCOUNTER 2025-01-28 09:30 | Outpatient (AMB) | payer MEDICARE, MEDICAID, SELFPAY ==
[2025-01-28 09:36] VITALS: BMI 45.2
--- NOTE | 2025-01-28 09:36 | A.OFFVIS_ITS ---
Vital Signs 01/28/25 09:36 Height 5 ft 3 in Weight 255 lb BMI 45.2 Intake Visit Reasons: OV- Left Distal radius fx Intake Note: Sue 79 yr old female presents today for her follow up visit for her Left distal ulna fracture, S/P fall DOI: 12/10/24. Splint removed and xrays updated. Patient states she has soreness since having her splint remove. Allergies azithromycin [AZITHROMYCIN] Allergy (Unknown, Verified 01/28/25 09:50) ITCHY acetaminophen [From Vicodin] Allergy (Verified 01/28/25 09:50) Unknown amlodipine Allergy (Verified 01/28/25 09:50) Unknown ezetimibe [From Zetia] Allergy (Verified 01/28/25 09:50) Unknown hydrochlorothiazide Allergy (Verified 01/28/25 09:50) Unknown hydrocodone [From Vicodin] Allergy (Verified 01/28/25 09:50) Unknown Dfoguwz-OOD-CmN Reductase Inhibitor Allergy (Verified 01/28/25 09:50) Unknown codeine [CODEINE] Adverse Reaction (Unknown, Verified 01/28/25 09:50) NAUSEA codeine Allergy (Unknown, Uncoded 01/28/25 09:50) facial flushing/vomiting HPI HPI OV- Left Distal radius fx: Details: Sue is an 79 year old right hand dominant Diabetic woman who returns for her left distal radius & distal ulna fractures, after a fall, DOI: 12/10/24. They have been managed non-operatively. She has a Hx of CVA & left hemiplegia. She says she fell while walking to the bathroom. She is seen with her worker today. She has been wearing her splint as instructed. She says her wrist is less painful. She says she has had no functional use of her left hand since her stroke many years ago. [facility] Medical History Peripheral neuropathy Hypertension Dysphagia Gastroesophageal reflux disease Seizure disorder Non-insulin dependent type 2 diabetes mellitus Mood disorder Paralysis CVA (cerebral vascular accident) Social History Household Members: Other Housing: Other Housing Other:: prison Do you presently have visiting nurse or other home services: No Alcohol intake: never Patient Tobacco Use Status: Never used Tobacco Advance Directives Date on File: 07/26/24 service: No Review of Systems Const All systems reviewed & are unremarkable except as noted in HPI and below Physical Exam Vital Signs: BMI result Body Mass Index 45.2 Const General: no acute distress and alert Orientation/consciousness: patient oriented x3 Neuro General: patient oriented x3 Extrem Other: Evaluation of Left Upper Extremity: The patient is alert, oriented, and in no acute distress The patient is 5 ft 3 and 255 lb. She is in a wheelchair. Neuro: Median, Ulnar, Radial nerves motor and sensory intact and sensation is normal to the tips of all digits Vascular: Cap refill brisk ROM: She has flexion contractures of all DIP & PIP joints of her left hand, secondary to Hemiplegia following a CVA. No real functional use of the hand, no active motion of her digits or her wrist Distal radius and ulna Fractures non-tender Swelling & ecchymosis have resolved. Radiographs: 3 views of the left wrist were taken today, viewed by me in clinic. They show a distal radius fracture, comminuted, intra-articular, as well as a distal ulna fracture. She appears to have maintained satisfactory fracture alignment and there is good evidence of interval bony healing. PIP & DIP joint flexion contractures of all digits. Psych Appearance: grossly normal Affect: normal affect Attitude: cooperative Assessment & Plan Assessment & Plan (1) Distal radius fracture, left: Code(s): S52.502A - Unspecified fracture of the lower end of left radius, initial encounter for closed fracture Category: Medical (2) Fracture of distal end of left ulna: Code(s): S52.602A - Unspecified fracture of lower end of left ulna, initial encounter for closed fracture Category: Medical (3) Non-insulin dependent type 2 diabetes mellitus: Code(s): E11.9 - Type 2 diabetes mellitus without complications Category: Medical (4) Hemiplegia affecting left nondominant side: Code(s): G81.94 - Hemiplegia, unspecified affecting left nondominant side Category: Medical Plan Assessment & Plan: 1. Left distal radius fracture, comminuted, intra-articular S/P fall, DOI: 12/10/24 Reduced in ED: 12/10/24 2. Left distal ulna fracture, S/P fall DOI: 12/10/24 She has a Hx of CVA & left-sided Hemiplegia I educated her about this condition We will continue to manage this non-operatively She was fitted for a velcro wrist splint, to be worn with daily activities when out of her bed, for the next 4 weeks She will remove this when at rest, and discontinue her splint completely in 4 weeks time. It sounds like they had her stay in her bed 24/04 since this injury. She should be out of bed and in a chair at least once day, and I wrote this in my instructions. Her transportation assistant notes that she now requires 3 people to assist her to move to a chair, and they were able to do so today. I believe that is likely to continue for the time being as she does need somebody to attend to her left upper extremity and protect it when she is being moved. She will follow up prn Scribed for Adrienne Gong MD by Tl Cook, medical recruiter, on 01/28/25 at 10:00 AM, EST. Orders: Orders XR wrist LT min 3V Today M25.532 - Pain in left wrist Coding Level of Care Code Global (81909) Diagnoses Distal radius fracture, left S52.502A Fracture of distal end of left ulna S52.602A Non-insulin dependent type 2 diabetes mellitus E11.9 Hemiplegia affecting left nondominant side G81.94
--- OUTSIDE RECORDS SUMMARY | 2025-01-28 10:29 | XMS_ITS | Clinical Summary ---
Author Organization [facility] Address [address] [address] Care Team Providers Care Heading Matcher And Assembler Name Role Phone Unavailable Primary Care Provider [...]
--- OUTSIDE RECORDS SUMMARY | 2025-01-28 10:29 | XMS_ITS ---
Author Organization [facility] Address [address] [place] [address] Care Team Providers Care Iuss Analyst Name Role Phone Awilda Brown Primary Care Provider Pamelava King Mcghee Unavailable [phone] Stephanie AGUIRRE, Awilda Unavailable Unavaila ble Allergies Allergen (clinical drug ingredient) Drug/Non Drug Allergy documented on EMR Reaction Allergy Type Onset Date Status Vicodin Unknown Drug Allergy Active ezetimibe Zetia Unknown Drug Allergy Active amlodipine Amlodipine Unknown Drug Allergy Activ e azithromycin Azithromycin Unknown Drug Allergy A ctive codeine Codeine Unknown Drug Allergy Active hydrochlorothiazide Hydrochlorothiazide Unknown Drug Aller gy Active Substance with 5-rnqgpxk-4-methylglutar yl-coenzyme A reductase inhibitor mechanism of action [...] ed eye Ophthalmic Once a day Active Wdppwnu-Ymvpgegw-Lyhowuneb- HC 1 % 1 application into the [...] Problem Acquired hammer toe of right foot (4187009282550 105) Other hammer toe(s) (acquired), right foot (M20.41) Active confirmed Problem Acquired hammer toe of left foot (7048754569827 103) Other hammer toe(s) (acquired), left foot (M20.42) Active confirmed Vital Signs Height 5 ft 3 in in 11/05/2024 Weight 300 lbs 11/05/2024 BMI 53.14 kg/m2 11/05/2024 Blood pressure systolic 140 mm Hg 11/05/19 25 Blood pressure diastolic 70 mm Hg 025 Procedures Procedure Date Ordered Date Performed Result Body Sit e 86661-UHPAJGB NAIL, 6 OR MORE 11/05/2024 N/A 36053-RAIK SKIN LESION 11/05/2024 N/A Encounters Encounter Location Date Provider Diagnosis [facility] [place] [address] [place] [address] 11/05/2024 King Tesfaye Type 2 diabetes mellitus [...] INSTRUCTIONS.pdf) Pending Test Test Name Order Date 22645-TFNJCRP NAIL, 6 OR MORE 11/05/2024 29094-TNDY SKIN LESION 11/05/2024 Next Appt Details Follow Up: 3 Months, Reason: Provider Name:King Tesfaye , 02/11/2025 01:00:00 PM, [address] [place] [address], [address], Procedure Notes * Category Sub-Category Detail [...] use of a nail nipper and/or dremel-type internal grinder tender, to a more viable healthy nail plate [...] to maintain effectiveness in symptomatic relief - 08330 Keratoma Treatment Parring or Cutting o f [...] instrumentation by the physician of record - 29284, Q8 Progress Notes * Sue DE LA VEGADOB: [birth year] (79 yo F)Acc No.[id number]:11/05/2024 Progress Note Patient:?SARASue SHELL Provider:?King Tesfaye DPM :1945???Age:79 Y???Sex:Female D ate:11/05/2024 Address:[address] [place] [address], [place] Pcp:Awilda Brown Subjective: * Chief Complaints: * [...] my 1986cholecystectomy 2005 * Hospitalization/Major Diagno stic Procedure[place] [facility] [place] [place] - [...] ?Exercise: no. ?Marital status: . 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 ???Drug/Alcohol:?AUDIT-C (Standard)?Did you have a drink containing alcohol in the past year??No ?Points?0 ?Interpretation?Negative * Medications:?TakingOlopatadi ne HCl 0.2 % Solution 1 drop into affected eye Ophthalmic Once a day Wughoom-Zjkspajn-Xeqxfknhu-HC 1 % Ointment 1 application into the [...] affected eye Ophthalmic Once a day Taking Ksgzuyj-Oubfuegc-Uevfceszu-HC 1 % Ointment 1 application into the [...] mellitus with diabetic peripheral angiopathy without gangrene?Procedure: 86229-QNFD SKIN LESION 3.?Tinea unguium?Procedure: 90461-JZHQSDS NAIL, 6 OR MORE * Procedures:?Debride Nail [...] use of a nail nipper and/or dremel-type internal grinder tender, to a more viable healthy nail plate [...] to maintain effectiveness in symptomatic relief - 06034.?Keratoma Treatment:?Parring or Cutting of Benign Hyperkeratotic Lesion(s)?(-55) [...] instrumentation by the physician of record - 94490, Q8.? * Procedure Codes:?22928 DEBRI DE NAIL, 6 OR MORE, Modifiers: XS 66608 TRIM SKIN LESION, Modifiers: XS , Q8 [...] Provider:?King Tesfaye DPM Date:?2024 Generated for Eli almonte/Prateek/Josiassmitting on:?01/28/2025 10:29 AM EDT History and Physical Notes * [...]
--- OUTSIDE RECORDS SUMMARY | 2025-01-28 10:29 | XMS_ITS ---
Author Organization [facility] Address [address] [place] [address] Care Team Providers Care Ribbing Machine Operator Name Role Phone Awilda Brown Primary Care Provider King Camacho Unavailable [phone] Awilda Brown MD Unavailable Unavaila ble REASON FOR VISIT refill on rx Medications Medication SIG (Take, Route, Fr equency, Duration) Notes Start Date End Date Status Ammonium Lactate 12 % APPLY 1 APPLICATIO N TOPICALLY TWICE DAILY TO DRY AREAS OF THE FEET Active Encounters Encounter Location Date Provider Diagnosis [address] [address] 10/24/2024 King Tesfaye Plan Of Treatment Medication Medication Name Sig Start Date Stop Date Notes Ammonium Lactate 12 % APPLY 1 APPLICATIO N TOPICALLY TWICE DAILY TO DRY AREAS OF THE FEET Next Appt Details Provider Name:King Tesfaye , 02/11/2025 01:00:00 PM, [address] [place], [address], Progress Notes * Sue DE LA VEGADOB: [birth year] (79 yo F)Acc No.[id number]:10/24/2024 Patient:?Sue DE LA VEGA :1945???Age:79 Y???Sex:Female Address:[address] [place] [address] * Refills? Refill Ammonium Lactate Cream, 12 %, 140 Gram, APPLY 1 APPLICATION TOPICALLY TWICE DAILY TO DRY AREAS OF THE FEET, Refills=0 * true * Date:? Generated for Eli almonte/Prateek/Alf on:?01/28/2025 10:29 AM EDT
--- OUTSIDE RECORDS SUMMARY | 2025-01-28 10:29 | XMS_ITS | Patient Health Record ---
Author Organization [facility] Address [address] [place] [address] Care Team Providers Care Emergency Nurse Name Role Phone Awilda Brown Primary Care Provider King Camacho Unavailable [phone] Awilda Brown MD Unavailable UnavailSunni Taylor Unavailable [phone] Allergies Allergen (clinical drug ingredient) Drug/Non Drug Allergy documented on EMR Reaction Allergy Type Onset Date Status Vicodin Unknown Drug Allergy Active ezetimibe Zetia Unknown Drug Allergy Active amlodipine Amlodipine Unknown Drug Allergy Activ e azithromycin Azithromycin Unknown Drug Allergy A ctive codeine Codeine Unknown Drug Allergy Active hydrochlorothiazide Hydrochlorothiazide Unknown Drug Aller gy Active Substance with 3-bdiwuek-9-methylglutar yl-coenzyme A reductase inhibitor mechanism of action [...] 25 MG Orally Once a day Not-Taking Higmwrw-Cobxgede-Bpcjlhyjz- HC 1 % 1 application into the [...] Problem Acquired hammer toe of right foot (3603418898389 105) Other hammer toe(s) (acquired), right foot (M20.41) Active confirmed Problem Type 2 diabetes mellitus with peripheral angiopathy (390079703) Type 2 diabetes mellitus with diabetic peripheral angiopathy without gangrene (E11.51) Active confirmed Q7(A), Q8(2B), Q9(1B,2C) Problem Acquired hammer toe of left foot (6439833816163 103) Other hammer toe(s) (acquired), left foot (M20.42) Active confirmed Vital Signs Blood pressure diastolic 70 mm Hg 11/05/2024 Height 5 ft 3 in in 11/05/2024 Blood pressure systolic 140 mm Hg 11/05/2024 Weight 300 lbs 11/05/2024 BMI 53.14 kg/m2 11/05/2024 Procedures Procedure Date Ordered Date Performed Result Body Sit e 52832-LJZIMSC NAIL, 6 OR MORE 11/05/2024 N/A 65941-LDYO SKIN LESION 11/05/2024 N/A 74949-TPLZAEY NAIL, 6 OR MORE 08/06/2024 N/A Encounters Encounter Location Date Provider Diagnosis [facility] [address] [address] 08/06/2024 King Tesfaye Type 2 diabetes mellitus with diabetic peripheral angiopathy without gangrene E11.51 ; Tinea unguium B35.1 ; Pain in right toe(s) M79.674 ; Pain in left toe(s) M79.675 and Xerosis of skin L85.[address] [facility] [address] 11/05/2024 King Tesfaye Type 2 diabetes mellitus with diabetic peripheral angiopathy without gangrene E11.51 ; Tinea unguium B35.1 ; Pain in right toe(s) M79.674 ; Pain in left toe(s) M79.675 ; Other hammer toe(s) (acquired), left foot M20.42 and Other hammer toe(s) (acquired), right foot M20.[address] [facility] [address] 02/15/2024 King Mera [facility] [address] [address] 03/05/2024 Ikng Mera [facility] [address] [address] 05/21/2024 King Mera [facility] [address] 06/21/2024 King Mera [facility] [address] [address] 06/27/2024 King Mera [facility] [address] [facility] [address] 10/24/2024 King Tesfaye Assessments Encounter Date Diagnosis (ICD Code) Assessment Notes Treatment Notes Treatment Clinical Notes Section Notes 08/06/2024 Type 2 diabetes mellitus with diabetic peripheral angiopathy without gangrene (ICD-10 - E11.51) 08/06/2024 Tinea unguium (ICD-10 - B35.1) 11/05/2024 Type 2 diabetes mellitus with diabetic peripheral angiopathy without gangrene (ICD-10 - E11.51) Q7(A), Q8(2B), Q9(1B,2C) 11/05/2024 Tinea unguium (ICD-10 - B35.1) 08/06/2024 [...] Treatment Pending Test Test Name Order Date 51419-EPUWMIV NAIL, 6 OR MORE 10/25/2016 46020-KEFQTHC NAIL, 6 OR MORE 01/19/2024 69010-QUTGVQI NAIL, 6 OR MORE 08/06/2024 17521-GHAFCCY NAIL, 6 OR MORE 11/05/2024 43618-Ivlzpolq Plate 01/19/2024 48404-Avcyjbfk Plate 10/25/2016 92740-MUTM SKIN LESION 11/05/2024 Next Appt Details Provider Name:King Burnham Mera , 02/11/2025 01:00:00 PM, [address] [facility], [place], [address], Insurance Providers Payer Name Payer Address Payer Phone Subscriber Number Group Number Insured Name Patient Relationship to Insured Coverage Start Date Coverage End Date Medicare National [employer] [address] [place] [address] [id number] Sue Villanueva Self - patient is the insured Medical (General) History Medical History History ICD Code Stroke Hypertension Cholesterol Diabetes mellitus Surgical History Surgery Date(Month/Year) hysterectomy 1986 cholecystectomy 2004 Hospitalization History Reason Date(Month/Year) [facility]- chest pains 04/2021 [facility] [place]2016 [facility] [place] ph[place] 07/22/24 [facility]- fell, 2 day stay 11/2022
--- OUTSIDE RECORDS SUMMARY | 2025-01-28 10:30 | XMS_ITS ---
Author Organization [facility] Address [address] [place] [address] Care Team Providers Care Student Records Coordinator Name Role Phone Awilda Brown Primary Care Provider King Camacho Unavailable [phone] Awilda Brown MD Unavailable Unavaila ble Allergies Allergen (clinical drug ingredient) Drug/Non Drug Allergy documented on EMR Reaction Allergy Type Onset Date Status Vicodin Unknown Drug Allergy Active ezetimibe Zetia Unknown Drug Allergy Active amlodipine Amlodipine Unknown Drug Allergy Activ e azithromycin Azithromycin Unknown Drug Allergy A ctive codeine Codeine Unknown Drug Allergy Active hydrochlorothiazide Hydrochlorothiazide Unknown Drug Aller gy Active Substance with 5-vyxcstf-6-methylglutar yl-coenzyme A reductase inhibitor mechanism of action [...] Severe 0.3 % as directed Ophthalmic Active Kkqtxmv-Gcttpgey-Qcgenxnhn-H C 1 % 1 application into the [...] Ordered Date Performed Result Body Sit e 17214-TEJPZWV NAIL, 6 OR MORE 08/06/2024 N/A Encounters Encounter Location Date Provider Diagnosis [facility] [address] [address] 08/06/2024 King Tesfaye Type 2 diabetes mellitus [...] Treatment Pending Test Test Name Order Date 69407-YMDWYEQ NAIL, 6 OR MORE 08/06/2024 Next Appt Details Follow Up: 3 Months, Reason: Provider Name:King Tesfaye , 02/11/2025 01:00:00 PM, [address] [place] [address], [address], Procedure Notes * Category Sub-Category Detail Notes Debride Nail 6-10 Nail debridement Performance o f this nail treatment by a nonprofessional would put this patients foot and overall health at risk. Therefore, nail debridement was performed extensively to reduce/remove overall nail length, girth, thickness, subungual debris, and necrotic tissue, by manual and/or electrical means through the use of a nail nipper and/or dremel-type corn grinder, to a more viable healthy nail plate or bed tissue 6-10. Silver nitrate used for any petechial bleeding as necessary. Definitive antifungal treatment options have been reviewed and discussed with the patient. The patient chooses, no pharmaceutical tx - 96292 Progress Notes * Sue DE LA VEGA: [birth year] (79 yo F)Acc No.[id number]:08/06/2024 Progress Note Patient:?Sue DE LA VEGA Provider:?King Tesfaye DPM :1945???Age:78 Y???Sex:Female D ate:08/06/2024 Address:[address] [place], [place] [address] Pcp:Awilda Brown Subjective: * Chief Complaints: * [...] my 1986cholecystectomy 2004 * Hospitalization/Major Diagno stic Procedure:?[facility] [place] [place], 2 day stay 11/20[place] [place]- phunem[place] 07/22/24 * Family History:?Mother: unkn own, Heart attack, Poor circulation, diagnosed with Unspecified heart disease.?Father: , prostate cancer.?Spouse: alive.? * Social History:?Tobacco Use:?Tobacco Use/Smoking?Are you a:?nonsmoker ?Additional Findings: Tobacco Non-User?Current non-smoker ?Tobacco use other than smoking?Are you an other tobacco user??No ???Miscellaneous:?Caffeine: yes, frequency:, 1-2 cups per day. ?Children: yes. ?Exercise: no. ?Marital status: . 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 * Medications:?TakingOlopatadi ne HCl 0.2 % Solution 1 drop into affected eye Ophthalmic Once a day Ipbwtaz-Dwkthcoi-Nscumpsxy-HC 1 % Ointment 1 application into the [...] affected eye Ophthalmic Once a day Taking Vgcqjvz-Oldbjqaq-Vhqtttsag-HC 1 % Ointment 1 application into the [...] use of a nail nipper and/or dremel-type corn grinder, to a more viable healthy nail plate or bed tissue 6-10. Silver nitrate used for any petechial bleeding as necessary. Definitive antifungal treatment options have been reviewed and discussed with the patient. The patient chooses, no pharmaceutical tx - 31969.? * Procedure Codes:?60650 DEBRI DE NAIL, 6 OR MORE * [...] Tesfaye DPM Date:?2023 Generated for Eli almonte/Prateek/Josiassmitting on:?01/28/2025 10:29 AM [...]
== END 2025-01-28 10:18 | disposition home or self-care (01) ==
LOC: HO.HOS 09:30
PROVIDERS: Visit Provider Orthopaedic Surgery
DX: S52.572A Other intraarticular fracture of lower end of left radius, initial encounter for closed fracture (principal); S52.602A Unspecified fracture of lower end of left ulna, initial encounter for closed fracture; E11.9 Type 2 diabetes mellitus without complications; G81.94 Hemiplegia, unspecified affecting left nondominant side
CPT/HCPCS: 99213

== ENCOUNTER → 2025-01-28 09:31 | Outpatient (BNV) | payer MEDICARE, MEDICAID, SELFPAY | PROVIDERS: Visit Provider Radiology Diagnostic Radiology | DX: S52.332A Displaced oblique fracture of shaft of left radius, initial encounter for closed fracture (principal); S52.602A Unspecified fracture of lower end of left ulna, initial encounter for closed fracture | CPT/HCPCS: 73110 ==

== ENCOUNTER 2025-01-28 10:11 | Outpatient (REF) | payer MEDICARE, MEDICAID, SELFPAY ==
--- NOTE | ~2025-01-28 | XR_ITS ---
EXAMINATION: XR WRIST 3 OR MORE VIEWS LEFT HISTORY: M25.532 - Pain in left wrist COMPARISON: Comparison is made with the prior examination dated 12/31/2024. FINDINGS: Three views of the left wrist are submitted. The bones are osteopenic. Again seen are oblique fractures of the distal radial and ulnar metaphyses. The fracture lines remain visible. There is a small amount of callus formation about the radial fracture. There is diffuse degenerative change of the carpus. The soft tissues are unremarkable. XR/XR wrist LT min 3V IMPRESSION: Oblique fractures of the distal radial and ulnar metaphyses with a small amount of callus formation noted about the radial fracture. Electronically signed by: Andre Desai MD 01/29/2025 05:35 PM EDT
--- OUTSIDE RECORDS SUMMARY | 2025-01-29 11:18 | XMS_ITS ---
Author Organization [facility] Address [address] [place] [address] Care Team Providers Care Electrolysis Operator Name Role Phone Awilda Brown Primary Care Provider Pamelava King Mcghee Unavailable [phone] Stephanie AGUIRRE, Awilda Unavailable Unavaila ble Allergies Allergen (clinical drug ingredient) Drug/Non Drug Allergy documented on EMR Reaction Allergy Type Onset Date Status Vicodin Unknown Drug Allergy Active ezetimibe Zetia Unknown Drug Allergy Active amlodipine Amlodipine Unknown Drug Allergy Activ e azithromycin Azithromycin Unknown Drug Allergy A ctive codeine Codeine Unknown Drug Allergy Active hydrochlorothiazide Hydrochlorothiazide Unknown Drug Aller gy Active Substance with 1-xzdztrr-1-methylglutar yl-coenzyme A reductase inhibitor mechanism of action [...] ed eye Ophthalmic Once a day Active Vfsziau-Ulrzfdkg-Qdejxuszt- HC 1 % 1 application into the [...] Problem Acquired hammer toe of right foot (3519470997136 105) Other hammer toe(s) (acquired), right foot (M20.41) Active confirmed Problem Acquired hammer toe of left foot (8593047283891 103) Other hammer toe(s) (acquired), left foot (M20.42) Active confirmed Vital Signs Height 5 ft 3 in in 11/05/2024 Weight 300 lbs 11/05/2024 BMI 53.14 kg/m2 11/05/2024 Blood pressure systolic 140 mm Hg 11/05/19 25 Blood pressure diastolic 70 mm Hg 025 Procedures Procedure Date Ordered Date Performed Result Body Sit e 11663-CNOPNUP NAIL, 6 OR MORE 11/05/2024 N/A 30515-CDRO SKIN LESION 11/05/2024 N/A Encounters Encounter Location Date Provider Diagnosis [facility] [place] [address] [place] [address] 11/05/2024 King Tesfaye Type 2 diabetes mellitus [...] INSTRUCTIONS.pdf) Pending Test Test Name Order Date 85987-KKWLKKN NAIL, 6 OR MORE 11/05/2024 59877-ZUHZ SKIN LESION 11/05/2024 Next Appt Details Follow Up: 3 Months, Reason: Provider Name:King Tesfaye , 02/11/2025 01:00:00 PM, [address] [place] [address], [address], Procedure Notes * Category Sub-Category Detail [...] use of a nail nipper and/or dremel-type automatic corn grinder operator, to a more viable healthy [...] to maintain effectiveness in symptomatic relief - 16593 Keratoma Treatment Parring or Cutting o f [...] instrumentation by the physician of record - 77722, Q8 Progress Notes * Sue DE LA VEGADOB: [birth year] (79 yo F)Acc No.[id number]:11/05/2024 Progress Note Patient:?SARASue SHELL Provider:?King Tesfaye DPM :1945???Age:79 Y???Sex:Female D ate:11/05/2024 Address:[address] [place] [address], [place] Pcp:Awilda Brown Subjective: * Chief Complaints: * [...] my 1986cholecystectomy 2005 * Hospitalization/Major Diagno stic Procedure:[place] [place] [facility] [place] - fell, 2 day stay 11/20[facility] [place]- phunem[place] 07/22/24 * Family [...] ?Exercise: no. ?Marital status: . 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 ???Drug/Alcohol:?AUDIT-C (Standard)?Did you have a drink containing alcohol in the past year??No ?Points?0 ?Interpretation?Negative * Medications:?TakingOlopatadi ne HCl 0.2 % Solution 1 drop into affected eye Ophthalmic Once a day Ybwflej-Lmdlbodd-Liboomhef-HC 1 % Ointment 1 application into the [...] affected eye Ophthalmic Once a day Taking Ljynhka-Boikiiem-Jfkykeylq-HC 1 % Ointment 1 application into the [...] mellitus with diabetic peripheral angiopathy without gangrene?Procedure: 70021-WNUH SKIN LESION 3.?Tinea unguium?Procedure: 67130-UNTDHIH NAIL, 6 OR MORE * Procedures:?Debride Nail [...] use of a nail nipper and/or dremel-type automatic corn grinder operator, to a more viable healthy [...] to maintain effectiveness in symptomatic relief - 85710.?Keratoma Treatment:?Parring or Cutting of Benign Hyperkeratotic Lesion(s)?(-55) [...] instrumentation by the physician of record - 50757, Q8.? * Procedure Codes:?14525 DEBRI DE NAIL, 6 OR MORE, Modifiers: XS 04345 TRIM SKIN LESION, Modifiers: XS , Q8 [...] Tesfaye DPM Date:?2024 Generated for Eli almonte/Prateek/Alf on:?01/29/2025 11:18 AM EDT History and Physical Notes * [...]
--- OUTSIDE RECORDS SUMMARY | 2025-01-29 11:18 | XMS_ITS ---
Author Organization [facility] Address [address] [place] [address] Care Team Providers Care Wood Heel Attacher Name Role Phone Awilda Brown Primary Care Provider King Camacho Unavailable [phone] Awilda Brown MD Unavailable Unavaila ble REASON FOR VISIT refill on rx Medications Medication SIG (Take, Route, Fr equency, Duration) Notes Start Date End Date Status Ammonium Lactate 12 % APPLY 1 APPLICATIO N TOPICALLY TWICE DAILY TO DRY AREAS OF THE FEET Active Encounters Encounter Location Date Provider Diagnosis [address] [address] 10/24/2024 King Tesfaye Plan Of Treatment Medication Medication Name Sig Start Date Stop Date Notes Ammonium Lactate 12 % APPLY 1 APPLICATIO N TOPICALLY TWICE DAILY TO DRY AREAS OF THE FEET Next Appt Details Provider Name:King Tesfaye , 02/11/2025 01:00:00 PM, [address] [place], [address], Progress Notes * Sue DE LA VEGADOB: [birth year] (79 yo F)Acc No.[id number]:10/24/2024 Patient:?Sue DE LA VEGA :1945???Age:79 Y???Sex:Female Address:[address] [place] [address] * Refills? Refill Ammonium Lactate Cream, 12 %, 140 Gram, APPLY 1 APPLICATION TOPICALLY TWICE DAILY TO DRY AREAS OF THE FEET, Refills=0 * true * Date:? Generated for Eli almonte/Prateek/Alf on:?01/29/2025 11:18 AM EDT
--- OUTSIDE RECORDS SUMMARY | 2025-01-29 11:18 | XMS_ITS | Clinical Summary ---
Author Organization [facility] Address [address] [address] Care Team Providers Care Cutter Operator Asbestos Shingle Name Role Phone Unavailable Primary Care Provider [...]
--- OUTSIDE RECORDS SUMMARY | 2025-01-29 11:19 | XMS_ITS ---
[facility] Organization [facility] Address [address] [place] [address] Care Team Providers Care Abseiling Instructor Name Role Phone Awilda Brown Primary Care Provider King Camacho Unavailable [phone] Awilda Brown MD Unavailable Unavaila ble Allergies Allergen (clinical drug ingredient) Drug/Non Drug Allergy documented on EMR Reaction Allergy Type Onset Date Status Vicodin Unknown Drug Allergy Active ezetimibe Zetia Unknown Drug Allergy Active amlodipine Amlodipine Unknown Drug Allergy Activ e azithromycin Azithromycin Unknown Drug Allergy A ctive codeine Codeine Unknown Drug Allergy Active hydrochlorothiazide Hydrochlorothiazide Unknown Drug Aller gy Active Substance with 1-kmivclu-6-methylglutar yl-coenzyme A reductase inhibitor mechanism of action [...] Severe 0.3 % as directed Ophthalmic Active Cyfjlje-Xedrhbjx-Uocptoojc-H C 1 % 1 application into the [...] Ordered Date Performed Result Body Sit e 76127-IUYJMNC NAIL, 6 OR MORE 08/06/2024 N/A Encounters Encounter Location Date Provider Diagnosis [facility] [address] [address] 08/06/2024 King Tesfaye Type 2 diabetes mellitus [...] Treatment Pending Test Test Name Order Date [id number] NAIL, 6 OR MORE 08/06/2024 Next Appt Details Follow Up: 3 Months, Reason: Provider Name:King Tesfaye , 02/11/2025 01:00:00 PM, [address] [place] [address], [id number], Procedure Notes * Category Sub-Category Detail Notes Debride Nail 6-10 Nail debridement Performance o f this nail treatment by a nonprofessional would put this patients foot and overall health at risk. Therefore, nail debridement was performed extensively to reduce/remove overall nail length, girth, thickness, subungual debris, and necrotic tissue, by manual and/or electrical means through the use of a nail nipper and/or dremel-type drill grinder, to a more viable healthy nail plate or bed tissue 6-10. Silver nitrate used for any petechial bleeding as necessary. Definitive antifungal treatment options have been reviewed and discussed with the patient. The patient chooses, no pharmaceutical tx - [id number] Progress Notes * Sue DE LA VEGA: [birth year] (79 yo F)Acc No.[id number]:08/06/2024 Progress Note Patient:?Sue DE LA VEGA Provider:?King Tesfaye DPM :1945???Age:78 Y???Sex:Female D ate:08/06/2024 Address:[address] [place], [place] [id number] Pcp:Awilda Brown Subjective: * Chief Complaints: * [...] my 1986cholecystectomy 2004 * Hospitalization/Major Diagno stic Procedure:?[facility] [place] 06/2016[facility] [place] - fell, 2 day stay 11/2022[facility] [place]- phunemonia 07/22/24 * Family History:?Mother: unkn own, Heart attack, Poor circulation, diagnosed with Unspecified heart disease.?Father: , prostate cancer.?Spouse: alive.? * Social History:?Tobacco Use:?Tobacco Use/Smoking?Are you a:?nonsmoker ?Additional Findings: Tobacco Non-User?Current non-smoker ?Tobacco use other than smoking?Are you an other tobacco user??No ???Miscellaneous:?Caffeine: yes, frequency:, 1-2 cups per day. ?Children: yes. ?Exercise: no. ?Marital status: . 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 * Medications:?TakingOlopatadi ne HCl 0.2 % Solution 1 drop into affected eye Ophthalmic Once a day Gyljovd-Mvgxmxar-Asljkrjyr-HC 1 % Ointment 1 application into the [...] affected eye Ophthalmic Once a day Taking Zlpfjmn-Ryxwbnuh-Jnnvtfzow-HC 1 % Ointment 1 application into the [...] use of a nail nipper and/or dremel-type drill grinder, to a more viable healthy nail plate or bed tissue 6-10. Silver nitrate used for any petechial bleeding as necessary. Definitive antifungal treatment options have been reviewed and discussed with the patient. The patient chooses, no pharmaceutical tx - [id number].? * Procedure Codes:?49706 DEBRI DE NAIL, 6 OR MORE * [...] Tesfaye DPM Date:?2023 Generated for Eli almonte/Prateek/Josiassmitting on:?01/29/2025 11:18 AM EDT History and Physical [...]
--- OUTSIDE RECORDS SUMMARY | 2025-01-29 11:19 | XMS_ITS | Patient Health Record ---
Author Organization [facility] Address [address] [place] [address] Care Team Providers Care Air Support Operations Operator Name Role Phone Awilda Brown Primary Care Provider King Camacho Unavailable [phone] Awilda Brown MD Unavailable UnavailSunni Taylor Unavailable [phone] Allergies Allergen (clinical drug ingredient) Drug/Non Drug Allergy documented on EMR Reaction Allergy Type Onset Date Status Vicodin Unknown Drug Allergy Active ezetimibe Zetia Unknown Drug Allergy Active amlodipine Amlodipine Unknown Drug Allergy Activ e azithromycin Azithromycin Unknown Drug Allergy A ctive codeine Codeine Unknown Drug Allergy Active hydrochlorothiazide Hydrochlorothiazide Unknown Drug Aller gy Active Substance with 6-mujvrmi-1-methylglutar yl-coenzyme A reductase inhibitor mechanism of action [...] 25 MG Orally Once a day Not-Taking Zoklqpp-Kiilyymm-Hvxhrkcla- HC 1 % 1 application into the [...] Problem Acquired hammer toe of right foot (8797535992086 105) Other hammer toe(s) (acquired), right foot (M20.41) Active confirmed Problem Type 2 diabetes mellitus with peripheral angiopathy (042524825) Type 2 diabetes mellitus with diabetic peripheral angiopathy without gangrene (E11.51) Active confirmed Q7(A), Q8(2B), Q9(1B,2C) Problem Acquired hammer toe of left foot (9249398527666 103) Other hammer toe(s) (acquired), left foot (M20.42) Active confirmed Vital Signs Blood pressure diastolic 70 mm Hg 11/05/2024 Height 5 ft 3 in in 11/05/2024 Blood pressure systolic 140 mm Hg 11/05/2024 Weight 300 lbs 11/05/2024 BMI 53.14 kg/m2 11/05/2024 Procedures Procedure Date Ordered Date Performed Result Body Sit e 38232-AUXRULB NAIL, 6 OR MORE 08/06/2024 N/A 76112-WVMUQJO NAIL, 6 OR MORE 11/05/2024 N/A 82799-VOHL SKIN LESION 11/05/2024 N/A Encounters Encounter Location Date Provider Diagnosis [facility] [address] [address] 08/06/2024 King Tesfaye Type 2 diabetes mellitus with diabetic peripheral angiopathy without gangrene E11.51 ; Tinea unguium B35.1 ; Pain in right toe(s) M79.674 ; Pain in left toe(s) M79.675 and Xerosis of skin L85.[address] [facility] [address] 11/05/2024 King Tesfaye Type 2 diabetes mellitus with diabetic peripheral angiopathy without gangrene E11.51 ; Tinea unguium B35.1 ; Pain in right toe(s) M79.674 ; Pain in left toe(s) M79.675 ; Other hammer toe(s) (acquired), left foot M20.42 and Other hammer toe(s) (acquired), right foot M20.[address] [facility] [address] 02/15/2024 King Mera [facility] [address] [address] 03/05/2024 King Mera [facility] [address] [address] 05/21/2024 King Mera [facility] [address] [address] 06/21/2024 King Mera [facility] [address] [address] 06/27/2024 King Mera [facility] [address] [facility] [address] 10/24/2024 King Tesfaye Assessments Encounter Date Diagnosis [...] Treatment Pending Test Test Name Order Date 31625-BMOWDVJ NAIL, 6 OR MORE 10/25/2016 99629-XCLOTYE NAIL, 6 OR MORE 01/19/2024 79581-RDRXEEN NAIL, 6 OR MORE 08/06/2024 77593-VITYCWN NAIL, 6 OR MORE 11/05/2024 78893-Rtnalbli Plate 01/19/2024 56427-Aovxlpae Plate 10/25/2016 15519-FPQC SKIN LESION 11/05/2024 Next Appt Details Provider Name:King Burnham Mera , 02/11/2025 01:00:00 PM, [address] [facility], [place], [address], Insurance Providers Payer Name Payer Address Payer Phone Subscriber Number Group Number Insured Name Patient Relationship to Insured Coverage Start Date Coverage End Date Medicare [employer] [address] [place] [address] [id number] Sue Villanueva Self - patient is the insured Medical (General) History Medical History History ICD Code Stroke Hypertension Cholesterol Diabetes mellitus Surgical History Surgery Date(Month/Year) hysterectomy 1986 cholecystectomy 2004 Hospitalization History Reason Date(Month/Year) [facility]- chest pains 04[place]20[place] [facility] [place]2016 [facility] [place] ph[place] 07/22/24 [facility]- fell, 2 day stay 11/2022
== END 2025-01-28 10:12 | disposition home or self-care (01) ==
LOC: HO.HOSX 10:11
PROVIDERS: Visit Provider Orthopaedic Surgery
DX: M25.532 Pain in left wrist (principal); S52.502D Unspecified fracture of the lower end of left radius, subsequent encounter for closed fracture with routine healing; S52.602D Unspecified fracture of lower end of left ulna, subsequent encounter for closed fracture with routine healing; I69.354 Hemiplegia and hemiparesis following cerebral infarction affecting left non-dominant side
CPT/HCPCS: 73110; 99212